=== PATIENT | male | born 1955 | race Hispanic/Latino ===

== ENCOUNTER 2017-05-23 06:17 | Inpatient (IN) | payer MEDICAID ==
[2017-05-23] MEDS ORDERED: MORPHINE IV ONE (07:12)
--- NOTE | 2017-05-23 07:16 | Emergency Department Report ---
HPI - General Chief Complaint: Urogenital-Male Time Seen by Provider: 05/23/17 06:54 - HPI HPI: 62-year-old -[place] Islander male presents with a two-week history of present worsening swelling and some mild shortness of breath. He says that the swelling is mostly in the legs, scrotum and abdomen. The scrotal swelling is associated with some testicular pain. He denies any skin color change or lesions. He denies any dysuria, penile discharge, chest pain. He has a history of diabetes, hypertension, neuropathy, congestive heart failure. He denies any tobacco, illicit drug use. He is an occasional drinker but has a history of drinking more consistently in the past. He has a primary care physician but cannot currently remember their name. He did not take anything for her symptoms prior presentation. No recent travel or sick contacts at home. ED Past Medical Hx - Past Medical History Previous Medical History?: Yes Hx Hypertension: Yes Hx Diabetes: Yes Hx COPD: No Hx HIV: No Additional medical history: Neuropathy, Hep. C, Hyperlipidemia, pulmonary edema - Surgical History Past Surgical History?: No - Social History Smoking Status: Current Every Day Smoker Substance Use Type: Alcohol - Medications Home Medications: Home Medications Medication Instructions Recorded Confirmed Last Taken Type Aspirin [Aspirin BABY CHEW TAB] 81 mg PO QDAY 01/04/17 01/04/17 01/03/17 History 81 mg AtorvaSTATin [Lipitor] 10 mg PO QHS 01/04/17 01/04/17 01/03/17 History 10 mg Citalopram [Celexa] 20 mg PO QDAY 01/04/17 01/04/17 01/02/17 History 20 mg Pregabalin [Lyrica] 75 mg PO BID 01/04/17 01/04/17 01/03/17 History 75 mg Carvedilol [Coreg] 6.25 mg PO BID #60 tablet 01/06/17 Unknown Rx Furosemide [Lasix] 20 mg PO QDAY #30 tablet 01/06/17 Unknown Rx Spironolactone [Aldactone] 12.5 mg PO QDAY #30 tablet 01/06/17 Unknown Rx hydrALAZINE [Apresoline TAB] 100 mg PO TID #90 tab 01/06/17 Unknown Rx ED Review of Systems ROS: Stated complaint: EDEMA Other details as noted in HPI Comment: All other systems reviewed and negative Constitutional: denies: chills, fever Eyes: denies: eye pain, eye discharge, vision change ENT: denies: ear pain, throat pain Respiratory: shortness of breath. denies: cough Cardiovascular: edema. denies: chest pain, palpitations Gastrointestinal: denies: abdominal pain, nausea, diarrhea Genitourinary: denies: urgency, dysuria Musculoskeletal: denies: back pain, arthralgia Skin: denies: rash, lesions Neurological: denies: headache, weakness, paresthesias Physical Exam - Physical Exam Vital Signs: Vital Signs 05/23/17 06:45 Temperature 98.7 F Pulse Rate 94 H Respiratory 17 Rate Blood Pressure 128/88 O2 Sat by Pulse 97 Oximetry Physical Exam: GENERAL: The patient is well-developed well-nourished. HENT: Normocephalic. Atraumatic. Patient has moist mucous membranes. EYES: Extraocular motions are intact. Pupils equal reactive to light bilaterally. NECK: Supple. Trachea is midline. CHEST/LUNGS: Coarse breath sounds at the chest. No tachypnea or accessory muscle use. There is no respiratory distress noted. HEART/CARDIOVASCULAR: Regular. There is no tachycardia. There is no murmur. ABDOMEN: Abdomen is soft, nontender. Patient has normal bowel sounds. SKIN: Patient has 2+ pitting edema to the bilateral lower extremities. He has nonpitting swelling to the scrotum, groin and lower abdomen. NEURO: The patient is awake, alert, and oriented. The patient is cooperative. The patient has no focal neurologic deficits. The patient has normal speech. MUSCULOSKELETAL: There is no tenderness or deformity. There is no limitation range of motion. There is no evidence of acute injury. : There is some swelling seen to the scrotum and penis. No lesions or rash seen. The area is not tender to palpation. No palpable hernias. ED Course Vital Signs 05/23/17 06:45 Temperature 98.7 F Pulse Rate 94 H Respiratory 17 Rate Blood Pressure 128/88 O2 Sat by Pulse 97 Oximetry ED Medical Decision Making - Lab Data Result diagrams: 05/23/17 08:29 05/23/17 08:29 - EKG Data -: EKG Interpreted by Ga EKG shows normal: sinus rhythm, axis (left axis deviation), intervals ( prolonged QT and QTC), QRS complexes, ST-T waves (some flattening of the T waves ) Rate: normal - EKG Data When compared to previous EKG there are: no significant change Interpretation: unchanged when compared t (01/04/17) - Radiology Data Radiology results: report reviewed, image reviewed interpreted by me: Chest x-ray shows some mild cardiomegaly. There is pulmonary vascular congestion. No obvious pneumonia. Scrotal ultrasound: 2 day history of swollen scrotum. There is a diffuse edematous thickening of the scrotal sac. There are bilateral moderate hydroceles. Both testicles have a generally normal echo pattern and size with good blood flow by color imaging. The right epididymis head contains a 7 mm cyst. The left epididymis head contains 2 smaller cysts each measuring 4 mm. On the left there is an appendix testis. The body of each epididymis is generally thickened but there is no increased blood flow demonstrated. Impressions: Nonspecific edema of the scrotal sac. Nonspecific bilateral hydroceles. Bilaterally thickened epididymis bodies with no inflammatory changes identified. Transcribed By: NITHIN Dictated By: JANINE KRAFT MD Electronically Authenticated By: JANINE KRAFT MD Signed Date/Time: 05/23/17 0865 - Medical Decision Making Patient presents with progressive two-week history of swelling to the lower extremity, groin and lower abdomen along with some mild shortness of breath. He has a history of CHF and appears to be in a CHF exacerbation with an elevated BNP. He has acute on chronic renal insufficiency. He has hyperkalemia with potassium of 5.9 and was given calcium, albuterol and Kayexalate. He was given some Lasix for diuresis. Ultrasound did not show any torsion or any significant abnormalities related to the scrotal swelling or testicular pain. The patient will be admitted to the hospital for further evaluation and treatment and has been accepted for admission by the hospitalist service. - Differential Diagnosis CHF, testicular torsion, epididymitis, venous stasis Critical Care Time: No Critical care attestation.: If time is entered above; I have spent that time in minutes in the direct care of this critically ill patient, excluding procedure time. ED Disposition Clinical Impression: Leg edema, Scrotal swelling, Hyperkalemia, Acute on chronic renal insufficiency , Elevated troponin CHF exacerbation Qualifiers: Congestive heart failure type: unspecified Qualified Code(s): I50.9 - Heart failure, unspecified Disposition: DC-09 OP ADMIT IP TO THIS HOSP Is pt being admited?: Yes Condition: Stable Referrals: PRIMARY CARE, [Primary Care Provider] - 3-5 Days Time of Disposition: 10:42
--- NOTE | 2017-05-23 07:46 | XRay Report ---
Portable chest: Chest pain. There is mild enlargement of the heart. There is mild redistribution of flow into the upper lobes. There is mild blunting of the right costophrenic angle. No infiltrates or nodules identified. These findings are significantly improved compared to the congestive failure pattern observed in December 2016. Impression: The findings are consistent with mild CHF with left pleural effusion.
[2017-05-23 08:12] LABS: Bilirubin,Urine NEG (Negative); Blood,Urine SM (Negative); Color,Urine Yellow (Yellow); Hyaline Casts,Urine 4 /LPF; Nitrite,Urine NEG (Negative)
[2017-05-23 08:14] LABS: Protein,Urine >500 mg/dL (Negative)
--- NOTE | 2017-05-23 08:35 | Ultrasound Report ---
Scrotal ultrasound: 2 day history of swollen scrotum. There is a diffuse edematous thickening of the scrotal sac. There are bilateral moderate hydroceles. Both testicles have a generally normal echo pattern and size with good blood flow by color imaging. The right epididymis head contains a 7 mm cyst. The left epididymis head contains 2 smaller cysts each measuring 4 mm. On the left there is an appendix testis. The body of each epididymis is generally thickened but there is no increased blood flow demonstrated. Impressions: Nonspecific edema of the scrotal sac. Nonspecific bilateral hydroceles. Bilaterally thickened epididymis bodies with no inflammatory changes identified.
[2017-05-23 08:44] LABS: Basophils # (Auto) 0.1 K/mm3 (0.0-0.1); Basophils % (Auto) 1.1 % (0.0-1.8); Eosinophils # (Auto) 0.4 K/mm3 (0.0-0.4); Eosinophils % (Auto) 7.7 % (0.0-4.3); Hematocrit 30.5 % (35.5-45.6); Lymphocytes # (Auto) 0.7 K/mm3 (1.2-5.4); Mean Corpuscular HGB Conc 33 % (32-34); Mean Corpuscular Hemoglobin 30 pg (28-32); Mean Corpuscular Volume 92 fl (84-94); Monocytes # (Auto) 0.8 K/mm3 (0.0-0.8); Monocytes % (Auto) 13.6 % (0.0-7.3); Platelet Count 188 K/mm3 (140-440); Red Blood Count 3.32 M/mm3 (3.65-5.03); Red Cell Distribution Width 15.8 % (13.2-15.2)
[2017-05-23 09:08] LABS: Albumin 2.5 g/dL (3.9-5); Calcium 7.5 mg/dL (8.4-10.2)
[2017-05-23] MEDS ORDERED: LASIX IV ONE (09:13)
[2017-05-23 09:21] LABS: Chol/HDL Ratio 2.61 %
[2017-05-23] MEDS ORDERED: PROVENTIL IH ONE (10:06)
[2017-05-23] MEDS ORDERED: KIONEX PO ONE (10:06)
[2017-05-23] MEDS ORDERED: CALCIUM GLUCONATE 1,000 MG in NACL 0.9% 100 ML IV ONE (10:30)
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
[2017-05-23] MEDS ORDERED: NACL 0.9% 1000 ML 1,000 ML ONE (10:43)
[2017-05-23] MEDS ORDERED: SODIUM BICARBONATE IV ONE (11:00)
[2017-05-23] MEDS ORDERED: D50W (25GM) Syringe IV ONE ×2 (11:00→18:08)
[2017-05-23] MEDS: BABY ASPIRIN PO SCH (11:01)
[2017-05-23 16:10] LABS: Calcium 7.8 mg/dL (8.4-10.2)
[2017-05-23] MEDS ORDERED: COREG ONE (16:20)
[2017-05-23] MEDS ORDERED: celeXA ONE (16:21)
[2017-05-23] MEDS ORDERED: APRESOLINE ONE (16:21)
[2017-05-23] MEDS: APRESOLINE PO SCH ×2 (16:43→22:30)
[2017-05-23] MEDS: COREG PO SCH ×2 (16:43→22:30)
[2017-05-23] MEDS: HEPARIN SUB-Q SCH ×2 (16:43→22:31)
[2017-05-23] MEDS: LYRICA PO SCH ×2 (16:43→23:13)
[2017-05-23] MEDS: celeXA PO SCH (16:44)
[2017-05-23] MEDS: LASIX IV SCH (18:19)
[2017-05-24] MEDS: LASIX IV SCH ×2 (05:49→18:39)
[2017-05-24] MEDS: HEPARIN SUB-Q SCH ×3 (05:49→22:47)
[2017-05-24 07:07] LABS: Calcium 7.6 mg/dL (8.4-10.2)
[2017-05-24] MEDS ORDERED: D50W (25GM) Syringe IV NR (09:30)
[2017-05-24] MEDS ORDERED: KIONEX PO NR ×2 (09:30→10:52)
[2017-05-24] MEDS ORDERED: SODIUM BICARBONATE IV NR (10:00)
[2017-05-24] MEDS ORDERED: CALCIUM CHLORIDE 1,000 MG in NACL 0.9% 100 ML IV ONE (10:30)
[2017-05-24] MEDS: LYRICA PO SCH ×2 (10:41→22:49)
[2017-05-24] MEDS: celeXA PO SCH (10:41)
[2017-05-24] MEDS: BABY ASPIRIN PO SCH (10:42)
[2017-05-24] MEDS: APRESOLINE PO SCH ×3 (10:42→23:18)
--- NOTE | 2017-05-24 10:47 | Consultation ---
History of Present Illness Consult date: 05/24/17 Consult reason: congestive heart failure History of present illness: 62 year old -[place] male presenting with shortness of breath and dyspnea on exertion scrotal leg and abdominal swelling. Past History Past Medical History: CAD, hypertension, hyperlipidemia, renal failure Social history: smoking, alcohol abuse Medications and Allergies Allergies Allergy/AdvReac Type Severity Reaction Status Date / Time No Known Allergies Allergy Unverified 01/04/17 08:05 Home Medications Medication Instructions Recorded Confirmed Last Taken Type Pregabalin [Lyrica] 75 mg PO BID 01/04/17 05/23/17 01/03/17 History 75 mg Carvedilol [Coreg] 6.25 mg PO BID #60 tablet 01/06/17 05/23/17 Unknown Rx Furosemide [Lasix] 20 mg PO QDAY #30 tablet 01/06/17 05/23/17 Unknown Rx Spironolactone [Aldactone] 12.5 mg PO QDAY #30 tablet 01/06/17 05/23/17 Unknown Rx hydrALAZINE [Apresoline TAB] 100 mg PO TID #90 tab 01/06/17 05/23/17 Unknown Rx Bumetanide [Bumetanide 2 mg tab] 2 mg PO BID 05/23/17 05/23/17 Unknown History Isosorbide Dinitrate [Isordil 20 mg PO TID 05/23/17 05/23/17 Unknown History Titradose] Metolazone [Zaroxolyn] 2.5 mg PO 2XW 05/23/17 05/23/17 Unknown History Active Meds: Active Medications Aspirin (Baby Aspirin) 81 mg PO QDAY [facility] Last Admin: 05/24/17 10:42 Dose: 81 mg Atorvastatin Calcium (Lipitor) 10 mg PO QHS [facility] Last Admin: 05/23/17 23:13 Dose: 10 mg Carvedilol (Coreg) 6.25 mg PO BID [facility] Last Admin: 05/23/17 22:30 Dose: 6.25 mg Citalopram Hydrobromide (Celexa) 20 mg PO QDAY [facility] Last Admin: 05/24/17 10:41 Dose: 20 mg Furosemide (Lasix) 40 mg IV 0600,1800 [facility] Last Admin: 05/24/17 05:49 Dose: 40 mg Heparin Sodium (Porcine) (Heparin) 5,000 unit SUB-Q Q8HR [facility] Last Admin: 05/24/17 05:49 Dose: 5,000 unit Hydralazine HCl (Apresoline) 100 mg PO TID [facility] Last Admin: 05/24/17 10:42 Dose: 100 mg Insulin Human Regular (Novolin R) 0 units SUB-Q ACHS [facility] PRN Reason: Protocol Last Admin: 05/23/17 22:24 Dose: Not Given Pregabalin (Lyrica) 75 mg PO BID [facility] Last Admin: 05/24/17 10:41 Dose: 75 mg Review of Systems Constitutional: weight gain, fatigue, weakness Cardiovascular: orthopnea, palpitations, edema, dyspnea on exertion Respiratory: shortness of breath, dyspnea on exertion, no cough, no cough with sputum, no congestion Genitourinary Male: no dysuria, no hematuria, no flank pain, no urinary frequency, no urinary hesitancy Musculoskeletal: no neck stiffness, no neck pain Integumentary: no deferred, no rash, no pruritis, no redness Neurological: no head injury, no transient paralysis, no weakness, no parathesias, no numbness Endocrine: no cold intolerance, no heat intolerance, no polyphagia, no polydipsia, no polyuria Hematologic/Lymphatic: no easy bruising, no easy bleeding Allergic/Immunologic: no urticaria, no allergic rhinitis Physical Examination Vital Signs Temp Pulse Resp BP Pulse Ox 98.7 F 94 H 17 128/88 97 05/23/17 06:45 05/23/17 06:45 05/23/17 06:45 05/23/17 06:45 05/23/17 06:45 General appearance: no acute distress HEENT: Positive: PERRL, Normocephaly, Mucus Membranes Moist Neck: Positive: neck supple, trachea midline Cardiac: Positive: S1/S2, S3, PMI, Dilated, Laterally Displaced Lungs: Positive: Normal Exam Neuro: Positive: Grossly Intact, No Lateralizing Findings Abdomen: Positive: Unremarkable, Soft, Active Bowel Sounds Male genitourinary: Positive: scrotal edema Skin: Positive: Clear Extremities: Present: +2 Edema, Other (mild anasarca) Results 05/23/17 08:29 05/24/17 06:00 Comprehensive Metabolic Panel 05/23/17 05/24/17 Range/Units 15:43 06:00 Sodium 140 141 (137-145) mmol/L Potassium 5.2 H 6.0 H (3.6-5.0) mmol/L Chloride 110.3 H 109.5 H (98-107) mmol/L Carbon Dioxide 20 L 21 L (22-30) mmol/L BUN 35 H 37 H (9-20) mg/dL Creatinine 2.1 H 2.2 H (0.8-1.5) mg/dL Glucose 50 L 222 H (75-100) mg/dL Calcium 7.8 L 7.6 L (8.4-10.2) mg/dL EKG interpretations - Telemetry EKG Rhythm: Sinus Rhythm Assessment and Plan 1. Acute systolic heart failure probably precipitated by fluid overload 2. Chronic kidney disease stage III 3. Type 2 diabetes mellitus 4. Chronic hepatitis C 5. Essential hypertension 6. Hyperkalemia. Plan. Fluid management and correcting hyperkalemia as per the money counter. Check Echo
--- NOTE | 2017-05-24 11:58 | Consultation ---
History of Present Illness - Reason for Consult Consult date: 05/24/17 acute renal failure, chronic renal failure, hyperkalemia Requesting physician: ESPINOZA CHEATHAM - History of Present Illness 62-year-old -[place] male presents with a two-week history of present worsening swelling and some mild shortness of breath. He says that the swelling is mostly in the legs, scrotum and abdomen. The scrotal swelling is associated with some testicular pain. He denies any skin color change or lesions. He denies any dysuria, penile discharge, chest pain. He has a history of diabetes, hypertension, neuropathy, congestive heart failure. He denies any tobacco, illicit drug use. He is an occasional drinker but has a history of drinking more consistently in the past. He has a primary care physician but cannot currently remember their name. He did not take anything for her symptoms prior presentation. No recent travel or sick contacts at home. - Past Medical History Previous Medical History?: Yes Hx Hypertension: Yes Hx Diabetes: Yes Hx COPD: No Hx HIV: No Additional medical history: Neuropathy, Hep. C, Hyperlipidemia, pulmonary edema - Surgical History Past Surgical History?: No - Social History Smoking Status: Current Every Day Smoker Substance Use Type: Alcohol ROS: Stated complaint: EDEMA Other details as noted in HPI Comment: All other systems reviewed and negative Constitutional: denies: chills, fever Eyes: denies: eye pain, eye discharge, vision change ENT: denies: ear pain, throat pain Respiratory: shortness of breath. denies: cough Cardiovascular: edema. denies: chest pain, palpitations Gastrointestinal: denies: abdominal pain, nausea, diarrhea Genitourinary: denies: urgency, dysuria Musculoskeletal: denies: back pain, arthralgia Skin: denies: rash, lesions Neurological: denies: headache, weakness, paresthesias Past History Past Medical History: CAD, hypertension, hyperlipidemia, renal failure Social history: smoking, alcohol abuse Medications and Allergies Allergies Allergy/AdvReac Type Severity Reaction Status Date / Time No Known Allergies Allergy Unverified 01/04/17 08:05 Home Medications Medication Instructions Recorded Confirmed Last Taken Type Pregabalin [Lyrica] 75 mg PO BID 01/04/17 05/23/17 01/03/17 History 75 mg Carvedilol [Coreg] 6.25 mg PO BID #60 tablet 01/06/17 05/23/17 Unknown Rx Furosemide [Lasix] 20 mg PO QDAY #30 tablet 01/06/17 05/23/17 Unknown Rx Spironolactone [Aldactone] 12.5 mg PO QDAY #30 tablet 01/06/17 05/23/17 Unknown Rx hydrALAZINE [Apresoline TAB] 100 mg PO TID #90 tab 01/06/17 05/23/17 Unknown Rx Bumetanide [Bumetanide 2 mg tab] 2 mg PO BID 05/23/17 05/23/17 Unknown History Isosorbide Dinitrate [Isordil 20 mg PO TID 05/23/17 05/23/17 Unknown History Titradose] Metolazone [Zaroxolyn] 2.5 mg PO 2XW 05/23/17 05/23/17 Unknown History Active Meds: Active Medications Aspirin (Baby Aspirin) 81 mg PO QDAY [facility] Last Admin: 05/24/17 10:42 Dose: 81 mg Atorvastatin Calcium (Lipitor) 10 mg PO QHS [facility] Last Admin: 05/23/17 23:13 Dose: 10 mg Carvedilol (Coreg) 6.25 mg PO BID [facility] Last Admin: 05/23/17 22:30 Dose: 6.25 mg Citalopram Hydrobromide (Celexa) 20 mg PO QDAY [facility] Last Admin: 05/24/17 10:41 Dose: 20 mg Furosemide (Lasix) 40 mg IV 0600,1800 [facility] Last Admin: 05/24/17 05:49 Dose: 40 mg Heparin Sodium (Porcine) (Heparin) 5,000 unit SUB-Q Q8HR [facility] Last Admin: 05/24/17 05:49 Dose: 5,000 unit Hydralazine HCl (Apresoline) 100 mg PO TID [facility] Last Admin: 05/24/17 10:42 Dose: 100 mg Insulin Human Regular (Novolin R) 0 units SUB-Q ACHS [facility] PRN Reason: Protocol Last Admin: 05/24/17 10:45 Dose: 3 units Pregabalin (Lyrica) 75 mg PO BID [facility] Last Admin: 05/24/17 10:41 Dose: 75 mg Exam - Vital Signs Vital signs: Vital Signs Temp Pulse Resp BP Pulse Ox 98.7 F 94 H 17 128/88 97 05/23/17 06:45 05/23/17 06:45 05/23/17 06:45 05/23/17 06:45 05/23/17 06:45 - Physical Exam Narrative exam: Physical Exam: GENERAL: The patient is well-developed well-nourished. HENT: Normocephalic. Atraumatic. Patient has moist mucous membranes. EYES: Extraocular motions are intact. Pupils equal reactive to light bilaterally. NECK: Supple. Trachea is midline. CHEST/LUNGS: Coarse breath sounds at the chest. No tachypnea or accessory muscle use. There is no respiratory distress noted. HEART/CARDIOVASCULAR: Regular. There is no tachycardia. There is no murmur. ABDOMEN: Abdomen is soft, nontender. Patient has normal bowel sounds. SKIN: Patient has 2+ pitting edema to the bilateral lower extremities. He has nonpitting swelling to the scrotum, groin and lower abdomen. NEURO: The patient is awake, alert, and oriented. The patient is cooperative. The patient has no focal neurologic deficits. The patient has normal speech. MUSCULOSKELETAL: There is no tenderness or deformity. There is no limitation range of motion. There is no evidence of acute injury. : There is some swelling seen to the scrotum and penis. No lesions or rash seen. The area is not tender to palpation. No palpable hernias Results - Lab Results 05/23/17 08:29 05/24/17 06:00 Most recent lab results Calcium 7.6 mg/dL (8.4-10.2) L 05/24/17 06:00 Assessment and Plan Impression: * DEBO on ckd 3--cr 1.6 12/29 * hyperkalemia * Anasarca * HTN * Cardiomyopathty * DM type 2 * Chronic hep C Plan: * renal/low k diet * kayexalate prn for hyperkalemia * area counselor on dietary intake * aggressive diuresis * daily lytes * hypoalbumemia noted--?nephrotic syndrome * follow up prot/cr ratio * ua and vasculitis workup * fluid restriction
[2017-05-24] MEDS ORDERED: SODIUM BICARBONATE IV ONE (13:00)
[2017-05-24 16:01] LABS: Calcium 8.1 mg/dL (8.4-10.2)
--- NOTE | 2017-05-24 17:17 | Progress Note ---
Assessment and Plan /Hyperkalemia, with Potassium increased to 6.0. - s/p kayexalate 30mh orally with calcium gluconate in the ER, was also given insulin with D50, sodium bicarbonate - but level still high. reordered kayexalate, calcium gluconate, insulin with D50, sodium bicarbonate today - monitor BMP, nephrology consulted - change to renal diet /Acute congestive heart failure, with grade 2 DD. - 2d echo showed EF 45-50% and grade 2 DD, his symptom might be also precipitated from volume overload and declining renaL FUNCTION - CXR showed mild CHF and left pleural effusion - monitor to telemetry bed - ordered serial CE and EKG - will cont on Aspirin, statin, and Lasix IV - consulted cardiology - daily weights, monitor in's and O's - increase lasix dose to 60 mg BID /Chronic kidney disease stage III. - cont to Monitor renal function, Avoid nephrotoxins. - consulted nephrology /Hypertensive urgency. - Given hydralazine iv. started on oral Coreg, hydralazine and lasix /Diabetes mellitus type 2. - We cont on SSI /Hyperlipidemia. - On statin. /Hepatitis C - Monitor liver function /Polysubstance abuse with Marijuana, Cocaine - Counseled for cessation /Neuropathy. - Continue Lyrica from home. /Scrotal swelling - testicular US showed nonspecific swelling of the scrotum - cont lasix for now, monitor clinically DVT prophylaxis with Heparin subcut. Full code status Brief History: 62-year-old -[place]og[place] male with h/o CKD, DM, CHF presents with a two-week history of present worsening swelling of the legs, scrotum and abdomen and some mild shortness of breath. Subjective Date of service: 05/24/17 Interval history: Pt seen and examined continue to c/o scrotal swelling and pain also worried about b/l LE swelling Chemistry shows K level 6.0 today Objective - Exam Narrative Exam: GENERAL: well-developed and well-nourished AAM lying on bed appeared to be in no discomfort. HEENT: Normocephalic. Atraumatic. No conjunctival congestion or icterus. Patient has moist mucous membranes. NECK: Supple. Trachea midline. CHEST/LUNGS: Clear to auscultated bilaterally, breathing nonlabored. No wheezes crackles or rhonchi. HEART/CARDIOVASCULAR: Regular in rate and rhythm. S1 and S2 positive. ABDOMEN: Abdomen is soft, nontender. Patient has normal bowel sounds. genitourinary: scrotal and penile swelling, no skin color change SKIN: There is no rash. Warm and dry. NEURO: No focal motor deficit. Follows command. MUSCULOSKELETAL: No joint effusion or tenderness. EXTRIMITY: + pedal edema, no cyanosis or clubbing. PSYCH: Cooperative. - Constitutional Vitals: Vital Signs - 12hr 05/24/17 05/24/17 05/24/17 05:49 08:27 08:28 Temperature 97.4 F L 98.7 F Pulse Rate 80 74 73 Respiratory 20 18 Rate Blood Pressure 128/79 120/73 O2 Sat by Pulse 94 96 96 Oximetry 05/24/17 10:00 Temperature Pulse Rate Respiratory 20 Rate Blood Pressure O2 Sat by Pulse 95 Oximetry - Labs CBC & Chem 7: 05/26/17 05:31 05/26/17 05:31 Labs: Abnormal lab results 05/23/17 05/23/17 05/24/17 Range/Units 18:09 22:27 06:00 Potassium 6.0 H (3.6-5.0) mmol/L Chloride 109.5 H (98-107) mmol/L Carbon Dioxide 21 L (22-30) mmol/L BUN 37 H (9-20) mg/dL Creatinine 2.2 H (0.8-1.5) mg/dL Glucose 222 H (75-100) mg/dL POC Glucose 53 L 123 H (70-105) Calcium 7.6 L (8.4-10.2) mg/dL Hepatitis C Antibody (NonReactive) 05/24/17 05/24/17 05/24/17 Range/Units 08:36 11:58 13:16 Potassium (3.6-5.0) mmol/L Chloride (98-107) mmol/L Carbon Dioxide (22-30) mmol/L BUN (9-20) mg/dL Creatinine (0.8-1.5) mg/dL Glucose (75-100) mg/dL POC Glucose 230 H 227 H (70-105) Calcium (8.4-10.2) mg/dL Hepatitis C Antibody Reactive A (NonReactive) 05/24/17 Range/Units 15:33 Potassium 5.9 H (3.6-5.0) mmol/L Chloride 109.2 H (98-107) mmol/L Carbon Dioxide 21 L (22-30) mmol/L BUN 38 H (9-20) mg/dL Creatinine 2.3 H (0.8-1.5) mg/dL Glucose (75-100) mg/dL POC Glucose (70-105) Calcium 8.1 L (8.4-10.2) mg/dL Hepatitis C Antibody (NonReactive)
[2017-05-24] MEDS: COREG PO SCH (22:48)
[2017-05-24] MEDS: ALBURX 25% (ALBUMIN) IV SCH (23:18)
[2017-05-25] MEDS ORDERED: KIONEX PO PRN
[2017-05-25] MEDS: LASIX IV SCH ×2 (06:18→18:14)
[2017-05-25] MEDS: HEPARIN SUB-Q SCH ×3 (06:18→22:10)
[2017-05-25 07:14] LABS: Calcium 7.4 mg/dL (8.4-10.2)
[2017-05-25 08:01] LABS: Bacteria,Urine 1+ /HPF (Negative); Bilirubin,Urine NEG (Negative); Blood,Urine NEG (Negative); Color,Urine Yellow (Yellow); Nitrite,Urine NEG (Negative); Urobilinogen,Urine < 2.0 mg/dL (<2.0)
[2017-05-25 08:06] LABS: Creatinine,Urine 66.7 mg/dL (0.1-20.0); Protein/Creatinine Ratio,Urine 0.78
[2017-05-25] MEDS: LYRICA PO SCH ×2 (09:44→22:10)
[2017-05-25] MEDS: celeXA PO SCH (09:44)
[2017-05-25] MEDS: BABY ASPIRIN PO SCH (09:44)
[2017-05-25] MEDS: APRESOLINE PO SCH ×3 (09:44→23:51)
[2017-05-25] MEDS: COREG PO SCH ×2 (09:45→22:11)
--- NOTE | 2017-05-25 10:22 | Progress Note ---
Assessment and Plan 1. Acute systolic heart failure probably precipitated by fluid overload 2. Chronic kidney disease stage III 3. Type 2 diabetes mellitus 4. Chronic hepatitis C 5. Essential hypertension 6. Hyperkalemia. Plan. Fluid management as per [employer]. Check echocardiogram Subjective Date of service: 05/25/17 Interval history: Pateint denies any cardiac symptoms. Still very concerned about his edema Objective Vital Signs Temp Pulse Resp BP Pulse Ox 05/25/17 09:45 80 152/83 05/25/17 08:46 98.3 F 80 20 152/83 95 05/25/17 06:21 98.3 F 81 20 139/73 94 05/25/17 01:11 98.2 F 81 20 113/65 96 05/24/17 22:48 88 120/64 05/24/17 20:26 98.3 F 88 20 119/64 97 05/24/17 17:19 86 97 05/24/17 11:57 80 118/72 94 - Physical Examination General: Appears Well, No Apparent Distress, Other (generalized anasarca) HEENT: Positive: PERRL, Normocephaly, Mucus Membranes Moist Neck: Positive: neck supple, trachea midline Cardiac: Positive: Regular Rate, S1/S2, S3, PMI, Laterally Displaced Lungs: Positive: clear to auscultation, No Wheeze, Rales, Rhonchi Neuro: Positive: Grossly Intact, No Lateralizing Findings Abdomen: Positive: Unremarkable, Soft, Active Bowel Sounds Skin: Positive: Clear Extremities: Present: +2 Edema, Other (generalized anasarca. scrotal edema) - Labs and Meds Comprehensive Metabolic Panel 05/24/17 05/24/17 05/25/17 Range/Units 15:33 17:42 05:31 Sodium 140 141 (137-145) mmol/L Potassium 5.9 H 5.9 H 5.1 H (3.6-5.0) mmol/L Chloride 109.2 H 109.9 H (98-107) mmol/L Carbon Dioxide 21 L 20 L (22-30) mmol/L BUN 38 H 40 H (9-20) mg/dL Creatinine 2.3 H 2.5 H (0.8-1.5) mg/dL Glucose 89 162 H (75-100) mg/dL Calcium 8.1 L 7.4 L (8.4-10.2) mg/dL - EKG Sinus rhythms and dysrhythmias: sinus rhythm
[2017-05-25 11:05] LABS: Calcium 7.7 mg/dL (8.4-10.2)
--- NOTE | 2017-05-25 12:23 | Progress Note ---
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 HENT: Normocephalic. Atraumatic. Patient has moist mucous membranes. EYES: Extraocular motions are intact. Pupils equal reactive to light bilaterally. NECK: Supple. Trachea is midline. CHEST/LUNGS: Coarse breath sounds at the chest. No tachypnea or accessory muscle use. There is no respiratory distress noted. HEART/CARDIOVASCULAR: Regular. There is no tachycardia. There is no murmur. ABDOMEN: Abdomen is soft, nontender. Patient has normal bowel sounds. SKIN: Patient has 2+ pitting edema to the bilateral lower extremities. He has nonpitting swelling to the scrotum, groin and lower abdomen. NEURO: The patient is awake, alert, and oriented. The patient is cooperative. The patient has no focal neurologic deficits. The patient has normal speech. MUSCULOSKELETAL: There is no tenderness or deformity. There is no limitation range of motion. There is no evidence of acute injury. : There is some swelling seen to the scrotum and penis. No lesions or rash seen. The area is not tender to palpation. No palpable hernias - Vital Signs Vital signs: Vital Signs - 12hr 05/25/17 05/25/17 05/25/17 01:11 06:21 08:46 Temperature 98.2 F 98.3 F 98.3 F Pulse Rate 81 81 80 Pulse Rate [ Apical] Respiratory 20 20 20 Rate Blood Pressure 113/65 139/73 152/83 O2 Sat by Pulse 96 94 95 Oximetry 05/25/17 05/25/17 09:45 10:00 Temperature Pulse Rate 80 Pulse Rate [ 80 Apical] Respiratory 17 Rate Blood Pressure 152/83 O2 Sat by Pulse 96 Oximetry - Lab 05/23/17 08:29 05/25/17 10:10 Most recent lab results Calcium 7.7 mg/dL (8.4-10.2) L 05/25/17 10:10 Urine Creatinine 66.7 mg/dL (0.1-20.0) H 05/25/17 Unknown Urine Total Protein 52 mg/dL (5-11.8) H 05/25/17 Unknown
[2017-05-25] MEDS: PERCOCET 5/325 PO PRN (12:40)
[2017-05-25] MEDS: ALBURX 25% (ALBUMIN) IV SCH (14:03)
[2017-05-25] MEDS: SODIUM BICARBONATE PO SCH ×2 (14:04→22:10)
--- NOTE | 2017-05-25 15:38 | Progress Note ---
Assessment and Plan /Hyperkalemia, with Potassium increased to 6.0. - K level 5.4 today - s/p kayexalate 30mh orally with calcium gluconate in the ER, was also given insulin with D50, sodium bicarbonate - but level was still high. reordered kayexalate, calcium gluconate, insulin with D50, sodium bicarbonate yesterday - will cont kayexalate and started on oral sodium bicarbonate - monitor BMP, nephrology consulted - cnt on renal diet /Acute congestive heart failure, with grade 2 DD. - 2d echo showed EF 45-50% and grade 2 DD, his symptom might be also precipitated from volume overload and declining renaL FUNCTION - CXR showed mild CHF and left pleural effusion - monitor to telemetry bed - ordered serial CE and EKG - will cont on Aspirin, statin, and Lasix IV - consulted cardiology - daily weights, monitor in's and O's - increased lasix dose to 60 mg BID /Chronic kidney disease stage III. - cont to Monitor renal function, Avoid nephrotoxins. - consulted nephrology /Hypertensive urgency. - Given hydralazine iv. started on oral Coreg, hydralazine and lasix /Diabetes mellitus type 2. - We cont on SSI /Hyperlipidemia. - On statin. /Hepatitis C - Monitor liver function /Polysubstance abuse with Marijuana, Cocaine - Counseled for cessation /Neuropathy. - Continue Lyrica from home. /Scrotal swelling - testicular US showed nonspecific swelling of the scrotum - cont lasix for now, monitor clinically DVT prophylaxis with Heparin subcut. Full code status Brief History: 62-year-old -[place]ish male with h/o CKD, DM, CHF presents with a two-week history of present worsening swelling of the legs, scrotum and abdomen and some mild shortness of breath. Subjective Date of service: 05/25/17 Principal diagnosis: hyperkalemia, ckd 3 Interval history: Pt seen and examined continue to c/o scrotal swelling and pain also worried about b/l LE swelling Chemistry shows K level 5.4 today had multiple BM this am Objective - Exam Narrative Exam: GENERAL: well-developed and well-nourished AAM lying on bed appeared to be in no discomfort. HEENT: Normocephalic. Atraumatic. No conjunctival congestion or icterus. Patient has moist mucous membranes. NECK: Supple. Trachea midline. CHEST/LUNGS: Clear to auscultated bilaterally, breathing nonlabored. No wheezes crackles or rhonchi. HEART/CARDIOVASCULAR: Regular in rate and rhythm. S1 and S2 positive. ABDOMEN: Abdomen is soft, nontender. Patient has normal bowel sounds. genitourinary: scrotal and penile swelling, no skin color change SKIN: There is no rash. Warm and dry. NEURO: No focal motor deficit. Follows command. MUSCULOSKELETAL: No joint effusion or tenderness. EXTRIMITY: + pedal edema, no cyanosis or clubbing. PSYCH: Cooperative. - Constitutional Vitals: Vital Signs - 12hr 05/25/17 05/25/17 05/25/17 06:21 08:46 09:45 Temperature 98.3 F 98.3 F Pulse Rate 81 80 80 Pulse Rate [ Apical] Respiratory 20 20 Rate Blood Pressure 139/73 152/83 152/83 Blood Pressure [Left] O2 Sat by Pulse 94 95 Oximetry 05/25/17 05/25/17 05/25/17 10:00 12:00 12:40 Temperature 97.4 F L Pulse Rate 75 Pulse Rate [ 80 Apical] Respiratory 17 20 19 Rate Blood Pressure Blood Pressure 125/69 [Left] O2 Sat by Pulse 96 95 Oximetry 05/25/17 14:24 Temperature Pulse Rate 80 Pulse Rate [ Apical] Respiratory Rate Blood Pressure Blood Pressure [Left] O2 Sat by Pulse Oximetry - Labs CBC & Chem 7: 05/26/17 05:31 05/26/17 05:31 Labs: Abnormal lab results 05/24/17 05/24/17 05/24/17 Range/Units 15:33 17:28 17:42 Potassium 5.9 H 5.9 H (3.6-5.0) mmol/L Chloride 109.2 H (98-107) mmol/L Carbon Dioxide 21 L (22-30) mmol/L BUN 38 H (9-20) mg/dL Creatinine 2.3 H (0.8-1.5) mg/dL Glucose (75-100) mg/dL POC Glucose 113 H (70-105) Calcium 8.1 L (8.4-10.2) mg/dL Urine Creatinine (0.1-20.0) mg/dL Urine Total Protein (5-11.8) mg/dL 05/24/17 05/25/1705/25/18 Range/Units 22:20 05:31 08:53 Potassium 5.1 H (3.6-5.0) mmol/L Chloride 109.9 H (98-107) mmol/L Carbon Dioxide 20 L (22-30) mmol/L BUN 40 H (9-20) mg/dL Creatinine 2.5 H (0.8-1.5) mg/dL Glucose 162 H (75-100) mg/dL POC Glucose 243 H 169 H (70-105) Calcium 7.4 L (8.4-10.2) mg/dL Urine Creatinine (0.1-20.0) mg/dL Urine Total Protein (5-11.8) mg/dL 05/25/17 05/25/17 05/25/17 Range/Units 10:10 12:12 Unknown Potassium 5.4 H (3.6-5.0) mmol/L Chloride 108.4 H (98-107) mmol/L Carbon Dioxide 20 L (22-30) mmol/L BUN 42 H (9-20) mg/dL Creatinine 2.4 H (0.8-1.5) mg/dL Glucose 208 H (75-100) mg/dL POC Glucose 185 H (70-105) Calcium 7.7 L (8.4-10.2) mg/dL Urine Creatinine 66.7 H (0.1-20.0) mg/dL Urine Total Protein 52 H (5-11.8) mg/dL
[2017-05-26] MEDS: ALBURX 25% (ALBUMIN) IV SCH ×2 (01:51→13:51)
[2017-05-26] MEDS: LASIX IV SCH ×2 (02:41→14:39)
[2017-05-26 06:08] LABS: Basophils # (Auto) 0.1 K/mm3 (0.0-0.1); Basophils % (Auto) 1.4 % (0.0-1.8); Eosinophils # (Auto) 0.4 K/mm3 (0.0-0.4); Eosinophils % (Auto) 9.5 % (0.0-4.3); Hematocrit 29.9 % (35.5-45.6); Lymphocytes # (Auto) 0.7 K/mm3 (1.2-5.4); Lymphocytes % (Auto) 18.9 % (13.4-35.0); Mean Corpuscular HGB Conc 33 % (32-34); Mean Corpuscular Hemoglobin 30 pg (28-32); Mean Corpuscular Volume 90 fl (84-94); Monocytes # (Auto) 0.6 K/mm3 (0.0-0.8); Monocytes % (Auto) 15.1 % (0.0-7.3); Platelet Count 202 K/mm3 (140-440); Red Blood Count 3.33 M/mm3 (3.65-5.03); Red Cell Distribution Width 15.3 % (13.2-15.2)
[2017-05-26 06:25] LABS: Calcium 7.7 mg/dL (8.4-10.2)
[2017-05-26] MEDS: HEPARIN SUB-Q SCH ×3 (06:27→23:09)
--- NOTE | 2017-05-26 09:22 | Progress Note ---
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 HENT: Normocephalic. Atraumatic. Patient has moist mucous membranes. EYES: Extraocular motions are intact. Pupils equal reactive to light bilaterally. NECK: Supple. Trachea is midline. CHEST/LUNGS: Coarse breath sounds at the chest. No tachypnea or accessory muscle use. There is no respiratory distress noted. HEART/CARDIOVASCULAR: Regular. There is no tachycardia. There is no murmur. ABDOMEN: Abdomen is soft, nontender. Patient has normal bowel sounds. SKIN: Patient has 2+ pitting edema to the bilateral lower extremities. He has nonpitting swelling to the scrotum, groin and lower abdomen. NEURO: The patient is awake, alert, and oriented. The patient is cooperative. The patient has no focal neurologic deficits. The patient has normal speech. MUSCULOSKELETAL: There is no tenderness or deformity. There is no limitation range of motion. There is no evidence of acute injury. : There is some swelling seen to the scrotum and penis. No lesions or rash seen. The area is not tender to palpation. No palpable hernias - Vital Signs Vital signs: Vital Signs - 12hr 05/25/17 05/26/17 05/26/17 22:11 01:39 05:43 Temperature 98.7 F Pulse Rate 88 77 82 Respiratory 20 22 Rate Blood Pressure 137/83 118/61 151/92 O2 Sat by Pulse 98 96 Oximetry 05/26/17 08:05 Temperature 98.3 F Pulse Rate 81 Respiratory 20 Rate Blood Pressure 153/80 O2 Sat by Pulse 96 Oximetry - Lab 05/26/17 05:31 05/26/17 05:31 Most recent lab results Calcium 7.7 mg/dL (8.4-10.2) L 05/26/17 05:31 Urine Creatinine 66.7 mg/dL (0.1-20.0) H 05/25/17 Unknown Urine Total Protein 52 mg/dL (5-11.8) H 05/25/17 Unknown
[2017-05-26] MEDS: BABY ASPIRIN PO SCH (09:34)
[2017-05-26] MEDS: celeXA PO SCH (09:34)
[2017-05-26] MEDS: SODIUM BICARBONATE PO SCH ×2 (09:34→23:12)
[2017-05-26] MEDS: LYRICA PO SCH ×2 (09:34→23:11)
[2017-05-26] MEDS: COREG PO SCH ×2 (09:35→23:12)
[2017-05-26] MEDS: APRESOLINE PO SCH ×3 (09:35→20:20)
--- NOTE | 2017-05-26 10:39 | Progress Note ---
Assessment and Plan /Hyperkalemia, with Potassium increased to 6.0. - K level 5.0 today - s/p multiple round of kayexalate with calcium gluconate, insulin with D50, sodium bicarbonate to control K - started on oral sodium bicarbonate - monitor BMP, nephrology consulted - cont on renal diet /Cory on Chronic kidney disease stage III. - cont to Monitor renal function, Avoid nephrotoxins. - consulted nephrology, volume status not improving with diuresis - plan to start HD short term to control volume status and electrolytes /Acute systolic and diastolic heart failure - 2d echo showed EF 45-50% and grade 2 DD, his symptom might be also precipitated from volume overload and declining renaL FUNCTION - CXR showed mild CHF and left pleural effusion - monitor to telemetry bed - will cont on Aspirin, statin, and Lasix IV 80 mg BID - consulted cardiology - daily weights, monitor in's and O's /Hypertensive urgency. - Given hydralazine iv. started on oral Coreg, hydralazine and lasix /Diabetes mellitus type 2. - We cont on SSI /Hyperlipidemia. - On statin. /Hepatitis C - Monitor liver function /Polysubstance abuse with Marijuana, Cocaine - Counseled for cessation /Neuropathy. - Continue Lyrica from home. /Scrotal swelling - testicular US showed nonspecific swelling of the scrotum - cont lasix for now, monitor clinically DVT prophylaxis with Heparin subcut. Full code status Brief History: 62-year-old -[place] male with h/o CKD, DM, CHF presents with a two-week history of present worsening swelling of the legs, scrotum and abdomen and some mild shortness of breath. Subjective Date of service: 05/26/17 Principal diagnosis: hyperkalemia, ckd 3 Interval history: Pt seen and examined continue to c/o scrotal swelling and pain also worried about b/l LE swelling swelling not going down, Not enough urine output with diuresis Objective - Exam Narrative Exam: GENERAL: well-developed and well-nourished AAM lying on bed appeared to be in no discomfort. HEENT: Normocephalic. Atraumatic. No conjunctival congestion or icterus. Patient has moist mucous membranes. NECK: Supple. Trachea midline. CHEST/LUNGS: Clear to auscultated bilaterally, breathing nonlabored. No wheezes crackles or rhonchi. HEART/CARDIOVASCULAR: Regular in rate and rhythm. S1 and S2 positive. ABDOMEN: Abdomen is soft, nontender. Patient has normal bowel sounds. genitourinary: scrotal and penile swelling, no skin color change SKIN: There is no rash. Warm and dry. NEURO: No focal motor deficit. Follows command. MUSCULOSKELETAL: No joint effusion or tenderness. EXTRIMITY: + pedal edema, no cyanosis or clubbing. PSYCH: Cooperative. - Constitutional Vitals: Vital Signs - 12hr 05/26/17 05/26/17 05/26/17 01:39 05:43 08:05 Temperature 98.7 F 98.3 F Pulse Rate 77 82 81 Respiratory 20 22 20 Rate Blood Pressure 118/61 151/92 153/80 O2 Sat by Pulse 98 96 96 Oximetry 05/26/17 09:35 Temperature Pulse Rate 80 Respiratory Rate Blood Pressure 153/80 O2 Sat by Pulse Oximetry - Labs CBC & Chem 7: 05/26/17 05:31 05/26/17 05:31 Labs: Abnormal lab results 05/25/17 05/25/17 05/25/17 Range/Units 10:10 12:12 22:09 WBC (4.5-11.0) K/mm3 RBC (3.65-5.03) M/mm3 Hgb (11.8-15.2) gm/dl Hct (35.5-45.6) % RDW (13.2-15.2) % [place] % (Auto) (0.0-7.3) % Eos % (Auto) (0.0-4.3) % Lymph # (1.2-5.4) K/mm3 Potassium 5.4 H (3.6-5.0) mmol/L Chloride 108.4 H (98-107) mmol/L Carbon Dioxide 20 L (22-30) mmol/L BUN 42 H (9-20) mg/dL Creatinine 2.4 H (0.8-1.5) mg/dL Glucose 208 H (75-100) mg/dL POC Glucose 185 H 159 H (70-105) Calcium 7.7 L (8.4-10.2) mg/dL 05/26/17 05/26/17 Range/Units 05:31 05:31 WBC 3.9 L (4.5-11.0) K/mm3 RBC 3.33 L (3.65-5.03) M/mm3 Hgb 10.0 L (11.8-15.2) gm/dl Hct 29.9 L (35.5-45.6) % RDW 15.3 H (13.2-15.2) % [place] % (Auto) 15.1 H (0.0-7.3) % Eos % (Auto) 9.5 H (0.0-4.3) % Lymph # 0.7 L (1.2-5.4) K/mm3 Potassium (3.6-5.0) mmol/L Chloride 108.0 H (98-107) mmol/L Carbon Dioxide 21 L (22-30) mmol/L BUN 44 H (9-20) mg/dL Creatinine 2.5 H (0.8-1.5) mg/dL Glucose 150 H (75-100) mg/dL POC Glucose (70-105) Calcium 7.7 L (8.4-10.2) mg/dL
--- NOTE | 2017-05-26 10:51 | Progress Note ---
Assessment and Plan Acute heart failure with a preserved ejection fraction secondary to noncompliance with medications EF 45-50% on echo this admission no ischemia on MPI 12/2016 Acute on choric Renal failure Hypertension Insulin-dependent diabetes mellitus Subjective Date of service: 05/26/17 Principal diagnosis: hyperkalemia, ckd 3 Interval history: Patient has no complaints. Objective Vital Signs Temp Pulse Resp BP BP Pulse Ox 05/26/17 09:35 80 153/80 05/26/17 08:05 98.3 F 81 20 153/80 96 05/26/17 05:43 82 22 151/92 96 05/26/17 01:39 98.7 F 77 20 118/61 98 05/25/17 22:11 88 137/83 05/25/17 20:52 98.5 F 83 18 137/77 95 05/25/17 16:09 98.6 F 75 20 132/76 05/25/17 14:24 80 05/25/17 12:40 19 05/25/17 12:00 97.4 F L 75 20 125/69 95 - Physical Examination General: No Apparent Distress HEENT: Positive: PERRL Neck: Positive: trachea midline Cardiac: Positive: Reg Rate and Rhythm Neuro: Positive: Grossly Intact Extremities: Present: +2 Edema - Labs and Meds CBC 05/26/17 Range/Units 05:31 WBC 3.9 L (4.5-11.0) K/mm3 RBC 3.33 L (3.65-5.03) M/mm3 Hgb 10.0 L (11.8-15.2) gm/dl Hct 29.9 L (35.5-45.6) % Plt Count 202 (140-440) K/mm3 Lymph # 0.7 L (1.2-5.4) K/mm3 [place] # 0.6 (0.0-0.8) K/mm3 Eos # 0.4 (0.0-0.4) K/mm3 Baso # 0.1 (0.0-0.1) K/mm3 Comprehensive Metabolic Panel 05/25/17 05/26/17 Range/Units 10:10 05:31 Sodium 140 142 (137-145) mmol/L Potassium 5.4 H 5.0 (3.6-5.0) mmol/L Chloride 108.4 H 108.0 H (98-107) mmol/L Carbon Dioxide 20 L 21 L (22-30) mmol/L BUN 42 H 44 H (9-20) mg/dL Creatinine 2.4 H 2.5 H (0.8-1.5) mg/dL Glucose 208 H 150 H (75-100) mg/dL Calcium 7.7 L 7.7 L (8.4-10.2) mg/dL - EKG Sinus rhythms and dysrhythmias: sinus rhythm
[2017-05-26] MEDS: PERCOCET 5/325 PO PRN ×2 (12:29→23:10)
[2017-05-26] MEDS ORDERED: LASIX IV ONE (18:00)
[2017-05-27] MEDS: ALBURX 25% (ALBUMIN) IV SCH ×2 (02:36→20:24)
[2017-05-27] MEDS: LASIX IV SCH ×2 (06:19→21:11)
[2017-05-27] MEDS: HEPARIN SUB-Q SCH ×3 (06:20→21:11)
[2017-05-27 06:35] LABS: Calcium 7.5 mg/dL (8.4-10.2)
[2017-05-27] MEDS ORDERED: HEPARIN 10,000 UNITS/10 ML ONE (08:14)
[2017-05-27] MEDS ORDERED: HEPARIN/NS 5000 UNIT/500ML(CATH LAB) 1,000 ML IR ONE (08:14)
[2017-05-27] MEDS ORDERED: SUBLIMAZE ONE (08:15)
[2017-05-27] MEDS ORDERED: ANCEF/STERILE WATER 2 GM/20 ML 2 GM/20 ML SYRINGE IV ONE (08:15)
[2017-05-27] MEDS ORDERED: VERSED ONE (08:15)
[2017-05-27] MEDS ORDERED: NACL 0.9% 250ML 250 ML ONE (08:16)
[2017-05-27] MEDS: XYLOCAINE 2% INFILTRATI ONE ×2 (08:21→08:59)
--- NOTE | 2017-05-27 09:26 | Progress Note ---
Assessment and Plan Impression: * DEBO on ckd 3--cr 1.6 12/29 * hyperkalemia * Anasarca * HTN * Cardiomyopathty * DM type 2 * Chronic hep C * cardiomyopathy Plan: * renal/low k diet * initiate hd for ultrafiltration and volume control * kayexalate prn for hyperkalemia * counseled on dietary intake * continue aggressive diuresis * follow up 24hr crcl * daily lytes * hypoalbumemia noted--no nephrotic syndrome * follow up prot/cr ratio * ua and vasculitis workup noted * fluid restriction Subjective Date of service: 05/27/17 Principal diagnosis: hyperkalemia, ckd 3 Interval history: resting in bed today Objective - Exam Narrative Exam: Physical Exam: GENERAL: The patient is well-developed well-nourished. HENT: Normocephalic. Atraumatic. Patient has moist mucous membranes. EYES: Extraocular motions are intact. Pupils equal reactive to light bilaterally. NECK: Supple. Trachea is midline. CHEST/LUNGS: Coarse breath sounds at the chest. No tachypnea or accessory muscle use. There is no respiratory distress noted. HEART/CARDIOVASCULAR: Regular. There is no tachycardia. There is no murmur. ABDOMEN: Abdomen is soft, nontender. Patient has normal bowel sounds. SKIN: Patient has 2+ pitting edema to the bilateral lower extremities. He has nonpitting swelling to the scrotum, groin and lower abdomen. NEURO: The patient is awake, alert, and oriented. The patient is cooperative. The patient has no focal neurologic deficits. The patient has normal speech. MUSCULOSKELETAL: There is no tenderness or deformity. There is no limitation range of motion. There is no evidence of acute injury. : There is some swelling seen to the scrotum and penis. No lesions or rash seen. The area is not tender to palpation. No palpable hernias - Vital Signs Vital signs: Vital Signs - 12hr 05/26/17 05/27/17 05/27/17 23:12 01:04 06:00 Temperature 98.5 F Pulse Rate 85 77 72 Respiratory 20 Rate Blood Pressure 161/85 122/57 125/67 O2 Sat by Pulse 95 97 Oximetry - Lab 05/26/17 05:31 05/27/17 05:53 Most recent lab results Calcium 7.5 mg/dL (8.4-10.2) L 05/27/17 05:53 Urine Creatinine 66.7 mg/dL (0.1-20.0) H 05/25/17 Unknown Urine Total Protein 52 mg/dL (5-11.8) H 05/25/17 Unknown
[2017-05-27] MEDS ORDERED: NACL 0.9% 100 ML IV PRN ×2 (10:00→21:04)
--- NOTE | 2017-05-27 10:27 | Operative Report ---
Operative Report Operative Report: Procedure: 1. Right internal jugular non-tunneled dialysis catheter placement 2. Ultrasound guided puncture of the right internal jugular vein. Date: 05/27/2017 Physician: Keturah Cervantes MD Indication: 62 year old male with renal failure, in need of dialysis. Technique: The patient was placed in the supine position and prepped and draped in the usual sterile fashion. A timeout was performed. Local anesthetic was administered. Under direct ultrasound guidance, the right internal jugular vein was accessed with an 18-gauge needle. An .035 wire was advanced. After serial tissue dilation, the dialysis catheter was advanced over the wire. Vacuum aspiration and flushing was performed. Each lumen was instilled with heparin. The catheter was secured to the skin with 2-0 Ethilon suture. Sterile dressings were placed, and the patient was transported from the procedure area in stable condition. Findings: 1. Ultrasound demonstrates a patent and compressible right internal jugular vein. 2. There is successful placement of a 15 cm non-tunneled dialysis catheter via the right internal jugular vein. 3. Each lumen flushes and aspirates briskly. 4. Positioning of the catheter tip within the right atrium will be confirmed by Xray
[2017-05-27] MEDS: APRESOLINE PO SCH ×3 (10:35→20:25)
--- NOTE | 2017-05-27 11:32 | XRay Report ---
AP CHEST: HISTORY: Vas-Cath placement A right IJ vas catheter has been inserted which terminates in the superior right atrium. Mild increase in cardiomegaly, vascular congestion and small right pleural effusion is demonstrated since 05/23/17. No evidence for pneumothorax. IMPRESSION: Vas catheter placement as described. No pneumothorax. Mild CHF.
--- NOTE | 2017-05-27 11:36 | Ultrasound Report ---
ULTRASOUND ABDOMEN COMPLETE: TECHNIQUE: Transabdominal ultrasound with color Doppler interrogation. HISTORY: Abdominal distention. COMPARISON: none. FINDINGS: LIVER: Within normal limits. BILIARY SYSTEM: No evidence for cholelithiasis or biliary dilatation. The CBD measures 3 mm. PANCREAS: Normal. SPLEEN: Within normal limits. 9.9 cm. KIDNEYS: Both kidneys are mildly echogenic consistent with nonspecific renal parenchymal disease. No focal renal lesion or hydronephrosis is identified. AORTA/IVC: Normal. ASCITES: Small to medium ascites is identified. IMPRESSION: Small to medium ascites. Echogenic kidneys consistent with nonspecific renal parenchymal disease.
--- NOTE | 2017-05-27 12:28 | Progress Note ---
Assessment and Plan - Patient Problems (1) Heart failure Current Visit: Yes Status: Acute Plan to address problem: Patient has heart failure with preserved ejection fraction. Continue diuretic therapy and blood pressure management and dialysis initiation for volume management. Subjective Date of service: 05/27/17 Principal diagnosis: hyperkalemia, ckd 3 Interval history: Patient is comfortable, status post placement of a dialysis access catheter. There are no cardiac complaints. Objective Vital Signs Temp Pulse Pulse Resp BP BP Pulse Ox 05/27/17 11:00 82 19 05/27/17 06:00 98.5 F 72 20 125/67 97 05/27/17 01:04 77 122/57 95 05/26/17 23:12 85 161/85 05/26/17 20:39 98.5 F 85 18 161/85 93 05/26/17 16:47 97.4 F L 78 20 131/72 94 05/26/17 12:58 77 05/26/17 12:29 19 - Physical Examination General: No Apparent Distress HEENT: Positive: PERRL Neck: Positive: trachea midline Cardiac: Positive: Reg Rate and Rhythm Lungs: Positive: Decreased Breath Sounds Neuro: Positive: Grossly Intact Abdomen: Positive: Unremarkable, Soft, Active Bowel Sounds Skin: Positive: Clear Extremities: Present: +1 Edema - Labs and Meds Comprehensive Metabolic Panel 05/27/17 Range/Units 05:53 Sodium 142 (137-145) mmol/L Potassium 4.6 (3.6-5.0) mmol/L Chloride 108.7 H (98-107) mmol/L Carbon Dioxide 22 (22-30) mmol/L BUN 46 H (9-20) mg/dL Creatinine 2.4 H (0.8-1.5) mg/dL Glucose 159 H (75-100) mg/dL Calcium 7.5 L (8.4-10.2) mg/dL - EKG Sinus rhythms and dysrhythmias: sinus rhythm
[2017-05-27] MEDS: COREG PO SCH ×2 (12:52→21:12)
[2017-05-27] MEDS: LYRICA PO SCH ×2 (13:00→21:12)
[2017-05-27] MEDS: BABY ASPIRIN PO SCH (13:00)
[2017-05-27] MEDS: celeXA PO SCH (13:01)
[2017-05-27] MEDS: SODIUM BICARBONATE PO SCH ×2 (13:01→21:16)
[2017-05-27] MEDS: PROCRIT IV PRN (16:27)
[2017-05-27] MEDS: HEPARIN IV PRN (17:11)
[2017-05-27 18:08] LABS: Myeloperoxidase Antibody <1.0 AI (<1.0)
--- NOTE | 2017-05-27 18:27 | Progress Note ---
Assessment and Plan Assessment and plan: 62-year-old -[place] male with h/o CKD, DM, CHF presents with a two- week history of present worsening swelling of the legs, scrotum and abdomen and some mild shortness of breath. /Hyperkalemia, with Potassium increased to 6.0. - K level 5.0 today - s/p multiple round of kayexalate with calcium gluconate, insulin with D50, sodium bicarbonate to control K - started on oral sodium bicarbonate - monitor BMP, nephrology consulted - cont on renal diet /Cory on Chronic kidney disease stage III. - cont to Monitor renal function, Avoid nephrotoxins. - consulted nephrology, volume status not improving with diuresis - plan to start HD short term to control volume status and electrolytes /Acute systolic and diastolic heart failure - 2d echo showed EF 45-50% and grade 2 DD, his symptom might be also precipitated from volume overload and declining renaL FUNCTION - CXR showed mild CHF and left pleural effusion - monitor to telemetry bed - will cont on Aspirin, statin, and Lasix IV 80 mg BID - consulted cardiology - daily weights, monitor in's and O's /Hypertensive urgency. - Given hydralazine iv. started on oral Coreg, hydralazine and lasix /Diabetes mellitus type 2. - We cont on SSI /Hyperlipidemia. - On statin. /Hepatitis C - Monitor liver function /Polysubstance abuse with Marijuana, Cocaine - Counseled for cessation /Neuropathy. - Continue Lyrica from home. /Scrotal swelling - testicular US showed nonspecific swelling of the scrotum - cont lasix for now, monitor clinically DVT prophylaxis with Heparin subcut. Full code status 05/27/2017: Hemodialysis to start today after Vas-Cath History Interval history: Patient was seen and examined. Follow-up on current diagnosis. Overnight uneventful. Patient denies any chest pain, shortness breath, nausea/vomiting or severe headaches. Imaging, nursing note, chart, labs and old chart reviewed. Discussed with patient. Hospitalist Physical - Physical exam Narrative exam: GENERAL: well-developed and well-nourished AAM lying on bed appeared to be in no discomfort. HEENT: Normocephalic. Atraumatic. No conjunctival congestion or icterus. Patient has moist mucous membranes. NECK: Supple. Trachea midline. CHEST/LUNGS: Clear to auscultated bilaterally, breathing nonlabored. No wheezes crackles or rhonchi. HEART/CARDIOVASCULAR: Regular in rate and rhythm. S1 and S2 positive. ABDOMEN: Abdomen is soft, nontender, distended, Patient has normal bowel sounds. genitourinary: scrotal and penile swelling, no skin color change SKIN: There is no rash. Warm and dry. NEURO: No new focal motor deficit. Follows command. MUSCULOSKELETAL: No joint effusion or tenderness. EXTRIMITY: + pedal edema, no cyanosis or clubbing. PSYCH: Cooperative. Oriented 3 - Constitutional Vitals: Temp Pulse Resp BP Pulse Ox 97.6 F 81 20 162/82 97 05/27/17 16:28 05/27/17 16:28 05/27/17 16:28 05/27/17 16:28 05/27/17 06:00 General appearance: Present: no acute distress Results - Labs CBC & Chem 7: 05/26/17 05:31 05/27/17 05:53 Labs: Laboratory Last Values WBC 3.9 K/mm3 (4.5-11.0) L 05/26/17 05:31 RBC 3.33 M/mm3 (3.65-5.03) L 05/26/17 05:31 Hgb 10.0 gm/dl (11.8-15.2) L 05/26/17 05:31 Hct 29.9 % (35.5-45.6) L 05/26/17 05:31 MCV 90 fl (84-94) 05/26/17 05:31 MCH 30 pg (28-32) 05/26/17 05:31 MCHC 33 % (32-34) 05/26/17 05:31 RDW 15.3 % (13.2-15.2) H 05/26/17 05:31 Plt Count 202 K/mm3 (140-440) 05/26/17 05:31 Lymph % (Auto) 18.9 % (13.4-35.0) 05/26/17 05:31 [place] % (Auto) 15.1 % (0.0-7.3) H 05/26/17 05:31 Eos % (Auto) 9.5 % (0.0-4.3) H 05/26/17 05:31 Baso % (Auto) 1.4 % (0.0-1.8) 05/26/17 05:31 Lymph # 0.7 K/mm3 (1.2-5.4) L 05/26/17 05:31 [place] # 0.6 K/mm3 (0.0-0.8) 05/26/17 05:31 Eos # 0.4 K/mm3 (0.0-0.4) 05/26/17 05:31 Baso # 0.1 K/mm3 (0.0-0.1) 05/26/17 05:31 Seg Neutrophils % 55.1 % (40.0-70.0) 05/26/17 05:31 Seg Neutrophils # 2.1 K/mm3 (1.8-7.7) 05/26/17 05:31 Sodium 142 mmol/L (137-145) 05/27/17 05:53 Potassium 4.6 mmol/L (3.6-5.0) 05/27/17 05:53 Chloride 108.7 mmol/L (98-107) H 05/27/17 05:53 Carbon Dioxide 22 mmol/L (22-30) 05/27/17 05:53 Anion Gap 16 mmol/L 05/27/17 05:53 BUN 46 mg/dL (9-20) H 05/27/17 05:53 Creatinine 2.4 mg/dL (0.8-1.5) H 05/27/17 05:53 Estimated GFR 28 ml/min 05/27/17 05:53 BUN/Creatinine Ratio 19 % 05/27/17 05:53 Glucose 159 mg/dL (75-100) H 05/27/17 05:53 POC Glucose 317 (70-105) H 05/27/17 16:55 Calcium 7.5 mg/dL (8.4-10.2) L 05/27/17 05:53 Total Bilirubin 0.30 mg/dL (0.1-1.2) 05/23/17 08:29 AST 29 units/L (5-40) 05/23/17 08:29 ALT 17 units/L (7-56) 05/23/17 08:29 Alkaline Phosphatase 82 units/L (35-129) 05/23/17 08:29 Troponin T 0.081 ng/mL (0.00-0.029) H 05/23/17 08:29 NT-Pro-B Natriuret Pep 18888 pg/mL (0-900) H 05/23/17 08:29 Total Protein 5.9 g/dL (6.3-8.2) L 05/23/17 08:29 Albumin 2.5 g/dL (3.9-5) L 05/23/17 08:29 Albumin/Globulin Ratio 0.7 % 05/23/17 08:29 Triglycerides 77 mg/dL (2-149) 05/23/17 08:29 Cholesterol 136 mg/dL (50-199) 05/23/17 08:29 LDL Cholesterol Direct 69 mg/dL (50-130) 05/23/17 08:29 HDL Cholesterol 52 mg/dL (40-59) 05/23/17 08:29 Cholesterol/HDL Ratio 2.61 % 05/23/17 08:29 Urine Color Yellow (Yellow) 05/25/17 Unknown Urine Turbidity Clear (Clear) 05/25/17 Unknown Urine pH 5.0 (5.0-7.0) 05/25/17 Unknown Ur Specific [place] 1.009 (1.003-1.030) 05/25/17 Unknown Urine Protein 30 mg/dl mg/dL (Negative) 05/25/17 Unknown Urine Glucose (UA) Neg mg/dL (Negative) 05/25/17 Unknown Urine Ketones Neg mg/dL (Negative) 05/25/17 Unknown Urine Blood Neg (Negative) 05/25/17 Unknown Urine Nitrite Neg (Negative) 05/25/17 Unknown Urine Bilirubin Neg (Negative) 05/25/17 Unknown Urine Urobilinogen < 2.0 mg/dL (<2.0) 05/25/17 Unknown Ur Leukocyte Esterase Neg (Negative) 05/25/17 Unknown Urine WBC (Auto) 1.0 /HPF (0.0-6.0) 05/25/17 Unknown Urine RBC (Auto) 3.0 /HPF (0.0-6.0) 05/25/17 Unknown U Epithel Cells (Auto) < 1.0 /HPF (0-13.0) 05/25/17 Unknown Urine Bacteria (Auto) 1+ /HPF (Negative) 05/25/17 Unknown Hyaline Casts 4 /LPF 05/23/17 07:46 Urine Yeast (Budding) Few /HPF 05/25/17 Unknown Urine Eosinophils None seen (None Seen) 05/25/17 Unknown Urine Total Volume 1300 05/26/17 09:23 Urine Creatinine 66.7 mg/dL (0.1-20.0) H 05/25/17 Unknown Ur Total Protein 24 Hr 1040.00 (2-200) H 05/26/17 09:23 Protein/Creatinin Ratio 0.78 05/25/17 Unknown Urine Total Protein 80 mg/dL (5-11.8) H 05/26/17 09:23 Proteinase 3 (PR3) Ab <1.0 AI (<1.0) 05/24/17 13:16 Myeloperoxidase Ab <1.0 AI (<1.0) 05/24/17 13:16 Hep Bs Antigen Non-reactive (Negative) 05/24/17 13:16 Hepatitis C Antibody Reactive (NonReactive) A 05/24/17 13:16
[2017-05-27] MEDS: PERCOCET 5/325 PO PRN (21:11)
[2017-05-28] MEDS: ALBURX 25% (ALBUMIN) IV SCH (01:59)
[2017-05-28] MEDS: PERCOCET 5/325 PO PRN ×2 (04:28→22:11)
[2017-05-28 05:46] LABS: Hemoglobin 9.4 gm/dl (11.8-15.2); Mean Corpuscular HGB Conc 33 % (32-34); Mean Corpuscular Hemoglobin 30 pg (28-32); Mean Corpuscular Volume 90 fl (84-94); Platelet Count 162 K/mm3 (140-440); Red Blood Count 3.11 M/mm3 (3.65-5.03); Red Cell Distribution Width 14.9 % (13.2-15.2)
[2017-05-28 05:58] LABS: Calcium 7.7 mg/dL (8.4-10.2)
[2017-05-28] MEDS: HEPARIN SUB-Q SCH ×3 (06:18→22:08)
[2017-05-28] MEDS: LASIX IV SCH (06:22)
--- NOTE | 2017-05-28 09:34 | Progress Note ---
Assessment and Plan Impression: * DEBO on ckd 3--cr 1.6 12/29 * hyperkalemia * Anasarca * HTN * Cardiomyopathty--diastolic and systolic * pulm HTN * DM type 2 * Chronic hep C * cardiomyopathy Plan: * renal/low k diet * ? sleep apnea--? cpap at night * initiated hd for ultrafiltration and volume control * kayexalate prn for hyperkalemia * counseled on dietary intake * continue aggressive po diuresis--lasix/zaroxolyn * follow up 24hr crcl noted * daily lytes * hypoalbumemia noted--no nephrotic syndrome * ua and vasculitis workup noted * fluid restriction Subjective Date of service: 05/28/17 Principal diagnosis: hyperkalemia, ckd 3 Interval history: resting in bed today Objective - Exam Narrative Exam: Physical Exam: GENERAL: The patient is well-developed well-nourished. HENT: Normocephalic. Atraumatic. Patient has moist mucous membranes. EYES: Extraocular motions are intact. Pupils equal reactive to light bilaterally. NECK: Supple. Trachea is midline. CHEST/LUNGS: Coarse breath sounds at the chest. No tachypnea or accessory muscle use. There is no respiratory distress noted. HEART/CARDIOVASCULAR: Regular. There is no tachycardia. There is no murmur. ABDOMEN: Abdomen is soft, nontender. Patient has normal bowel sounds. SKIN: Patient has 2+ pitting edema to the bilateral lower extremities. He has nonpitting swelling to the scrotum, groin and lower abdomen. NEURO: The patient is awake, alert, and oriented. The patient is cooperative. The patient has no focal neurologic deficits. The patient has normal speech. MUSCULOSKELETAL: There is no tenderness or deformity. There is no limitation range of motion. There is no evidence of acute injury. : There is some swelling seen to the scrotum and penis. No lesions or rash seen. The area is not tender to palpation. No palpable hernias - Vital Signs Vital signs: Vital Signs - 12hr 05/28/17 05/28/17 05/28/17 00:10 03:35 08:44 Temperature 98.5 F 97.4 F L 97.7 F Pulse Rate 82 80 76 Respiratory 18 18 18 Rate Blood Pressure 127/69 Blood Pressure 144/72 145/72 [Left] O2 Sat by Pulse 94 18 L 96 Oximetry - Lab 05/28/17 04:59 05/28/17 04:59 Most recent lab results Calcium 7.7 mg/dL (8.4-10.2) L 05/28/17 04:59 Urine Creatinine 66.7 mg/dL (0.1-20.0) H 05/25/17 Unknown Ur Total Protein 24 Hr 1040.00 (2-200) H 05/26/17 09:23 Urine Total Protein 80 mg/dL (5-11.8) H 05/26/17 09:23
[2017-05-28] MEDS: celeXA PO SCH (09:52)
[2017-05-28] MEDS: BABY ASPIRIN PO SCH (09:52)
[2017-05-28] MEDS: SODIUM BICARBONATE PO SCH ×2 (09:53→22:12)
[2017-05-28] MEDS: LYRICA PO SCH ×2 (09:53→22:11)
[2017-05-28] MEDS: COREG PO SCH ×3 (09:53→22:12)
[2017-05-28] MEDS: APRESOLINE PO SCH ×3 (09:54→22:16)
[2017-05-28] MEDS: ZAROXOLYN PO SCH (09:54)
--- NOTE | 2017-05-28 10:17 | Progress Note ---
Assessment and Plan Acute heart failure with a preserved ejection fraction secondary to noncompliance with medications EF 45-50% on echo this admission no ischemia on MPI 12/2016 Acute on choric Renal failure initiated on dialysis Hypertension Insulin-dependent diabetes mellitus Recommend: Continue medical therapy for heart failure with a preserved ejection fraction. Subjective Date of service: 05/28/17 Principal diagnosis: hyperkalemia, ckd 3 Interval history: Patient initiated on dialysis 05/27. He denies chest pain and shortness of breath. Objective Vital Signs Temp Pulse Pulse Resp BP BP Pulse Ox 05/28/17 08:44 97.7 F 76 18 145/72 96 05/28/17 03:35 97.4 F L 80 18 144/72 18 L 05/28/17 00:10 98.5 F 82 18 127/69 94 05/27/17 21:12 94 H 185/105 05/27/17 20:34 98.8 F 94 H 185/105 96 05/27/17 16:46 98.4 F 85 18 165/81 87 05/27/17 16:28 97.6 F 81 20 162/82 05/27/17 16:15 80 170/93 05/27/17 16:00 81 173/95 05/27/17 15:45 79 162/95 05/27/17 15:30 78 158/92 05/27/17 15:15 76 154/85 05/27/17 15:00 76 155/86 05/27/17 14:45 77 162/82 05/27/17 14:30 78 165/92 05/27/17 14:15 81 162/92 05/27/17 14:00 73 160/100 05/27/17 13:45 81 180/104 05/27/17 13:30 97.7 F 81 20 171/99 05/27/17 11:58 78 154/82 97 05/27/17 11:00 82 19 - Physical Examination General: No Apparent Distress HEENT: Positive: PERRL Neck: Positive: trachea midline Cardiac: Positive: Reg Rate and Rhythm Lungs: Positive: Decreased Breath Sounds Neuro: Positive: Grossly Intact Extremities: Present: +1 Edema - Labs and Meds CBC 05/28/17 Range/Units 04:59 WBC 3.6 L (4.5-11.0) K/mm3 RBC 3.11 L (3.65-5.03) M/mm3 Hgb 9.4 L (11.8-15.2) gm/dl Hct 28.0 L (35.5-45.6) % Plt Count 162 (140-440) K/mm3 Comprehensive Metabolic Panel 05/28/17 Range/Units 04:59 Sodium 141 (137-145) mmol/L Potassium 4.3 (3.6-5.0) mmol/L Chloride 104.6 (98-107) mmol/L Carbon Dioxide 25 (22-30) mmol/L BUN 30 H (9-20) mg/dL Creatinine 1.8 H (0.8-1.5) mg/dL Glucose 171 H (75-100) mg/dL Calcium 7.7 L (8.4-10.2) mg/dL - EKG Sinus rhythms and dysrhythmias: sinus rhythm
[2017-05-28 11:38] LABS: ANA Screen, IFA Negative (Negative)
[2017-05-28] MEDS ORDERED: NACL 0.9 (PRIMING MACHINE ONLY DIALYSIS) MC ONE (11:47)
--- NOTE | 2017-05-28 12:27 | Query- Renal Failure ---
Laura Nichols Wise Date:___05/28/17 Sandblaster Glass/CDS:___Rohit Phone#:___[phone] Exercise your independent professional judgment when responding to query. Questions asked do not imply a particular answer is desired or expected. We greatly appreciate your clarification on this issue. Clinical Documentation States: 62 year old male was admitted on 05/23/17 The progress note (05/27/17) states " Assessment and plan: 62-year-old -[place] male with h/o CKD, DM, CHF presents with a two- week history of present worsening swelling of the legs, scrotum and abdomen and some mild shortness of breath. /Cory on Chronic kidney disease stage III. " Clinical Findings Show: 05/23/17 05/26/17 05/28/17 Creatinine: 2.1 2.5 1.8 Please clarify if you mean: Acute Renal Failure with or due to: [ ] Tubular Necrosis [ ] Medullary Necrosis [ x] Vasomotor Nephropathy [ ] Shock Kidney [ ] Tubular Nephrosis [ ] Renal Tubular Stasis [ ] Cortical Necrosis [ ] Acute Renal Failure (unspecified) [ ] Lower Tubular Nephrosis [ ] Other: [ ] Not Applicable Present on Admission: [x ] Yes (Y) [ ] Clinically undeterminable (W) [ ] No (N) Please also document response in your Progress Notes and/or Discharge Summary and indicate if the condition was present on admission. TEAD
[2017-05-28] MEDS: PROCRIT IV PRN (12:49)
[2017-05-28] MEDS: HEPARIN IV PRN (13:47)
[2017-05-28] MEDS: LASIX PO SCH (17:43)
--- NOTE | 2017-05-28 18:07 | Progress Note ---
Assessment and Plan Assessment and plan: 62-year-old -[place] male with h/o CKD, DM, CHF presents with a two- week history of present worsening swelling of the legs, scrotum and abdomen and some mild shortness of breath. /Hyperkalemia, with Potassium increased to 6.0. - K level 5.0 today - s/p multiple round of kayexalate with calcium gluconate, insulin with D50, sodium bicarbonate to control K - started on oral sodium bicarbonate - monitor BMP, nephrology consulted - cont on renal diet /ARF/CKD 3, due to vasomotor nephropathy, poa - cont to Monitor renal function, Avoid nephrotoxins. - consulted nephrology, volume status not improving with diuresis - plan to start HD short term to control volume status and electrolytes /Acute systolic and diastolic heart failure - 2d echo showed EF 45-50% and grade 2 DD, his symptom might be also precipitated from volume overload and declining renaL FUNCTION - CXR showed mild CHF and left pleural effusion - monitor to telemetry bed - will cont on Aspirin, statin, and Lasix IV 80 mg BID - consulted cardiology - daily weights, monitor in's and O's /Hypertensive urgency. - Given hydralazine iv. started on oral Coreg, hydralazine and lasix /Diabetes mellitus type 2. - We cont on SSI /Hyperlipidemia. - On statin. /Hepatitis C - Monitor liver function /Polysubstance abuse with Marijuana, Cocaine - Counseled for cessation /Neuropathy. - Continue Lyrica from home. /Scrotal swelling - testicular US showed nonspecific swelling of the scrotum - cont lasix for now, monitor clinically DVT prophylaxis with Heparin subcut. Full code status 05/27/2017: Hemodialysis to start today after Vas-Cath 05/28/17: still fluid overloaded, continue to diuresis History Interval history: Patient was seen and examined. Follow-up on current diagnosis. Overnight uneventful. Patient denies any chest pain, shortness breath, nausea/vomiting or severe headaches. Imaging, nursing note, chart, labs and old chart reviewed. Discussed with patient. Hospitalist Physical - Physical exam Narrative exam: GENERAL: well-developed and well-nourished AAM lying on bed appeared to be in no discomfort. HEENT: Normocephalic. Atraumatic. No conjunctival congestion or icterus. Patient has moist mucous membranes. NECK: Supple. Trachea midline. CHEST/LUNGS: Clear to auscultated bilaterally, breathing nonlabored. No wheezes crackles or rhonchi. HEART/CARDIOVASCULAR: Regular in rate and rhythm. S1 and S2 positive. ABDOMEN: Abdomen is soft, nontender, distended, Patient has normal bowel sounds. genitourinary: scrotal and penile swelling, no skin color change SKIN: There is no rash. Warm and dry. NEURO: No new focal motor deficit. Follows command. MUSCULOSKELETAL: No joint effusion or tenderness. EXTRIMITY: + pedal edema, no cyanosis or clubbing. PSYCH: Cooperative. Oriented 3 - Constitutional Vitals: Temp Pulse Resp BP Pulse Ox 97.8 F 83 18 144/68 95 05/28/17 17:45 05/28/17 17:45 05/28/17 17:45 05/28/17 17:45 05/28/17 17:45 General appearance: Present: no acute distress Results - Labs CBC & Chem 7: 05/28/17 04:59 05/28/17 04:59 Labs: Laboratory Last Values WBC 3.6 K/mm3 (4.5-11.0) L 05/28/17 04:59 RBC 3.11 M/mm3 (3.65-5.03) L 05/28/17 04:59 Hgb 9.4 gm/dl (11.8-15.2) L 05/28/17 04:59 Hct 28.0 % (35.5-45.6) L 05/28/17 04:59 MCV 90 fl (84-94) 05/28/17 04:59 MCH 30 pg (28-32) 05/28/17 04:59 MCHC 33 % (32-34) 05/28/17 04:59 RDW 14.9 % (13.2-15.2) 05/28/17 04:59 Plt Count 162 K/mm3 (140-440) 05/28/17 04:59 Lymph % (Auto) 18.9 % (13.4-35.0) 05/26/17 05:31 Bennett % (Auto) 15.1 % (0.0-7.3) H 05/26/17 05:31 Eos % (Auto) 9.5 % (0.0-4.3) H 05/26/17 05:31 Baso % (Auto) 1.4 % (0.0-1.8) 05/26/17 05:31 Lymph # 0.7 K/mm3 (1.2-5.4) L 05/26/17 05:31 Bennett # 0.6 K/mm3 (0.0-0.8) 05/26/17 05:31 Eos # 0.4 K/mm3 (0.0-0.4) 05/26/17 05:31 Baso # 0.1 K/mm3 (0.0-0.1) 05/26/17 05:31 Seg Neutrophils % 55.1 % (40.0-70.0) 05/26/17 05:31 Seg Neutrophils # 2.1 K/mm3 (1.8-7.7) 05/26/17 05:31 Sodium 141 mmol/L (137-145) 05/28/17 04:59 Potassium 4.3 mmol/L (3.6-5.0) 05/28/17 04:59 Chloride 104.6 mmol/L (98-107) 05/28/17 04:59 Carbon Dioxide 25 mmol/L (22-30) 05/28/17 04:59 Anion Gap 16 mmol/L 05/28/17 04:59 BUN 30 mg/dL (9-20) H 05/28/17 04:59 Creatinine 1.8 mg/dL (0.8-1.5) H 05/28/17 04:59 Estimated GFR 39 ml/min 05/28/17 04:59 BUN/Creatinine Ratio 17 % 05/28/17 04:59 Glucose 171 mg/dL (75-100) H 05/28/17 04:59 POC Glucose 145 (70-105) H 05/28/17 08:20 Calcium 7.7 mg/dL (8.4-10.2) L 05/28/17 04:59 Total Bilirubin 0.30 mg/dL (0.1-1.2) 05/23/17 08:29 AST 29 units/L (5-40) 05/23/17 08:29 ALT 17 units/L (7-56) 05/23/17 08:29 Alkaline Phosphatase 82 units/L (35-129) 05/23/17 08:29 Troponin T 0.081 ng/mL (0.00-0.029) H 05/23/17 08:29 NT-Pro-B Natriuret Pep 21642 pg/mL (0-900) H 05/23/17 08:29 Total Protein 5.9 g/dL (6.3-8.2) L 05/23/17 08:29 Albumin 2.5 g/dL (3.9-5) L 05/23/17 08:29 Albumin/Globulin Ratio 0.7 % 05/23/17 08:29 Triglycerides 77 mg/dL (2-149) 05/23/17 08:29 Cholesterol 136 mg/dL (50-199) 05/23/17 08:29 LDL Cholesterol Direct 69 mg/dL (50-130) 05/23/17 08:29 HDL Cholesterol 52 mg/dL (40-59) 05/23/17 08:29 Cholesterol/HDL Ratio 2.61 % 05/23/17 08:29 Urine Color Yellow (Yellow) 05/25/17 Unknown Urine Turbidity Clear (Clear) 05/25/17 Unknown Urine pH 5.0 (5.0-7.0) 05/25/17 Unknown Ur Specific [place] 1.009 (1.003-1.030) 05/25/17 Unknown Urine Protein 30 mg/dl mg/dL (Negative) 05/25/17 Unknown Urine Glucose (UA) Neg mg/dL (Negative) 05/25/17 Unknown Urine Ketones Neg mg/dL (Negative) 05/25/17 Unknown Urine Blood Neg (Negative) 05/25/17 Unknown Urine Nitrite Neg (Negative) 05/25/17 Unknown Urine Bilirubin Neg (Negative) 05/25/17 Unknown Urine Urobilinogen < 2.0 mg/dL (<2.0) 05/25/17 Unknown Ur Leukocyte Esterase Neg (Negative) 05/25/17 Unknown Urine WBC (Auto) 1.0 /HPF (0.0-6.0) 05/25/17 Unknown Urine RBC (Auto) 3.0 /HPF (0.0-6.0) 05/25/17 Unknown U Epithel Cells (Auto) < 1.0 /HPF (0-13.0) 05/25/17 Unknown Urine Bacteria (Auto) 1+ /HPF (Negative) 05/25/17 Unknown Hyaline Casts 4 /LPF 05/23/17 07:46 Urine Yeast (Budding) Few /HPF 05/25/17 Unknown Urine Eosinophils None seen (None Seen) 05/25/17 Unknown Urine Total Volume 1300 05/26/17 09:23 Urine Creatinine 66.7 mg/dL (0.1-20.0) H 05/25/17 Unknown Ur Total Protein 24 Hr 1040.00 (2-200) H 05/26/17 09:23 Protein/Creatinin Ratio 0.78 05/25/17 Unknown Urine Total Protein 80 mg/dL (5-11.8) H 05/26/17 09:23 AMOS Screen Negative (Negative) 05/24/17 13:16 Proteinase 3 (PR3) Ab <1.0 AI (<1.0) 05/24/17 13:16 Myeloperoxidase Ab <1.0 AI (<1.0) 05/24/17 13:16 Complement C3 73 mg/dL (82-185) L 05/24/17 13:16 Complement C4 21 mg/dL (15-53) 05/24/17 13:16 Hep Bs Antigen Non-reactive (Negative) 05/24/17 13:16 Hepatitis C Antibody Reactive (NonReactive) A 05/24/17 13:16
[2017-05-29] MEDS: HEPARIN SUB-Q SCH ×3 (06:20→21:51)
[2017-05-29] MEDS: LASIX PO SCH ×2 (06:21→17:26)
[2017-05-29 06:26] LABS: Calcium 7.4 mg/dL (8.4-10.2)
--- NOTE | 2017-05-29 09:53 | Progress Note ---
Assessment and Plan Impression: * DEBO on ckd 3--cr 1.6 12/29 * hyperkalemia * Anasarca * HTN * Cardiomyopathty--diastolic and systolic--ef 40% * pulm HTN * DM type 2 * Chronic hep C * cardiomyopathy Plan: * renal/low k diet * ? sleep apnea--? cpap at night * initiated hd for ultrafiltration and volume control * kayexalate prn for hyperkalemia * counseled on dietary intake * continue aggressive po diuresis--lasix/zaroxolyn * follow up 24hr crcl noted * low c3 noted, negative archie/anca * daily lytes * hypoalbumemia noted--no nephrotic syndrome * ua and vasculitis workup noted * fluid restriction * no plans for outpatient hd at this time Subjective Date of service: 05/29/17 Principal diagnosis: hyperkalemia, ckd 3 Interval history: resting in bed today Objective - Exam Narrative Exam: Physical Exam: GENERAL: The patient is well-developed well-nourished. HENT: Normocephalic. Atraumatic. Patient has moist mucous membranes. EYES: Extraocular motions are intact. Pupils equal reactive to light bilaterally. NECK: Supple. Trachea is midline. CHEST/LUNGS: Coarse breath sounds at the chest. No tachypnea or accessory muscle use. There is no respiratory distress noted. HEART/CARDIOVASCULAR: Regular. There is no tachycardia. There is no murmur. ABDOMEN: Abdomen is soft, nontender. Patient has normal bowel sounds. SKIN: Patient has 2+ pitting edema to the bilateral lower extremities. He has nonpitting swelling to the scrotum, groin and lower abdomen. NEURO: The patient is awake, alert, and oriented. The patient is cooperative. The patient has no focal neurologic deficits. The patient has normal speech. MUSCULOSKELETAL: There is no tenderness or deformity. There is no limitation range of motion. There is no evidence of acute injury. : There is some swelling seen to the scrotum and penis. No lesions or rash seen. The area is not tender to palpation. No palpable hernias - Vital Signs Vital signs: Vital Signs - 12hr 05/28/17 05/28/17 05/28/17 22:00 22:11 22:12 Temperature Pulse Rate 65 95 H Respiratory 20 Rate Respiratory 20 Rate [Right Groin] Blood Pressure 157/86 O2 Sat by Pulse Oximetry 05/29/17 05/29/17 04:35 08:22 Temperature 98.3 F 98.3 F Pulse Rate 79 Respiratory 18 20 Rate Respiratory Rate [Right Groin] Blood Pressure 133/67 148/84 O2 Sat by Pulse 95 Oximetry - Lab 05/28/17 04:59 05/29/17 05:09 Most recent lab results Calcium 7.4 mg/dL (8.4-10.2) L 05/29/17 05:09 Urine Creatinine 66.7 mg/dL (0.1-20.0) H 05/25/17 Unknown Ur Total Protein 24 Hr 1040.00 (2-200) H 05/26/17 09:23 Urine Total Protein 80 mg/dL (5-11.8) H 05/26/17 09:23
[2017-05-29] MEDS: celeXA PO SCH (10:02)
[2017-05-29] MEDS: LYRICA PO SCH ×2 (10:02→21:50)
[2017-05-29] MEDS: SODIUM BICARBONATE PO SCH ×2 (10:02→21:49)
[2017-05-29] MEDS: ZAROXOLYN PO SCH (10:02)
[2017-05-29] MEDS: BABY ASPIRIN PO SCH (10:02)
[2017-05-29] MEDS: APRESOLINE PO SCH ×3 (10:03→21:50)
[2017-05-29] MEDS: COREG PO SCH ×2 (10:03→21:51)
[2017-05-29] MEDS ORDERED: NACL 0.9 (PRIMING MACHINE ONLY DIALYSIS) MC ONE (13:32)
[2017-05-29] MEDS: PROCRIT IV PRN (13:34)
--- NOTE | 2017-05-29 16:01 | Progress Note ---
Assessment and Plan Assessment and plan: 62-year-old -[place] male with h/o CKD, DM, CHF presents with a two- week history of present worsening swelling of the legs, scrotum and abdomen and some mild shortness of breath. /Hyperkalemia, with Potassium increased to 6.0. - K level 5.0 today - s/p multiple round of kayexalate with calcium gluconate, insulin with D50, sodium bicarbonate to control K - started on oral sodium bicarbonate - monitor BMP, nephrology consulted - cont on renal diet /ARF/CKD 3, due to vasomotor nephropathy, poa - cont to Monitor renal function, Avoid nephrotoxins. - consulted nephrology, volume status not improving with diuresis - plan to start HD short term to control volume status and electrolytes /Acute systolic and diastolic heart failure - 2d echo showed EF 45-50% and grade 2 DD, his symptom might be also precipitated from volume overload and declining renaL FUNCTION - CXR showed mild CHF and left pleural effusion - monitor to telemetry bed - will cont on Aspirin, statin, and Lasix IV 80 mg BID - consulted cardiology - daily weights, monitor in's and O's /Hypertensive urgency. - Given hydralazine iv. started on oral Coreg, hydralazine and lasix /Diabetes mellitus type 2. - We cont on SSI /Hyperlipidemia. - On statin. /Hepatitis C - Monitor liver function /Polysubstance abuse with Marijuana, Cocaine - Counseled for cessation /Neuropathy. - Continue Lyrica from home. /Scrotal swelling - testicular US showed nonspecific swelling of the scrotum - cont lasix for now, monitor clinically DVT prophylaxis with Heparin subcut. Full code status 05/27/2017: Hemodialysis to started today after Vas-Cath History Interval history: Patient was seen and examined. Follow-up on current diagnosis. Overnight uneventful. Patient denies any chest pain, shortness breath, nausea/vomiting or severe headaches. Imaging, nursing note, chart, labs and old chart reviewed. Discussed with patient. Hospitalist Physical - Physical exam Narrative exam: GENERAL: well-developed and well-nourished AAM lying on bed appeared to be in no discomfort. HEENT: Normocephalic. Atraumatic. No conjunctival congestion or icterus. Patient has moist mucous membranes. NECK: Supple. Trachea midline. CHEST/LUNGS: Clear to auscultated bilaterally, breathing nonlabored. No wheezes crackles or rhonchi. HEART/CARDIOVASCULAR: Regular in rate and rhythm. S1 and S2 positive. ABDOMEN: Abdomen is soft, nontender, distended, Patient has normal bowel sounds. genitourinary: scrotal and penile swelling, no skin color change SKIN: There is no rash. Warm and dry. NEURO: No new focal motor deficit. Follows command. MUSCULOSKELETAL: No joint effusion or tenderness. EXTRIMITY: + pedal edema, no cyanosis or clubbing. PSYCH: Cooperative. Oriented 3 - Constitutional Vitals: Temp Pulse Resp BP Pulse Ox 98.0 F 72 20 107/52 95 05/29/17 14:32 05/29/17 14:32 05/29/17 14:32 05/29/17 14:32 05/29/17 08:22 General appearance: Present: no acute distress Results - Labs CBC & Chem 7: 05/28/17 04:59 05/29/17 05:09 Labs: Laboratory Last Values WBC 3.6 K/mm3 (4.5-11.0) L 05/28/17 04:59 RBC 3.11 M/mm3 (3.65-5.03) L 05/28/17 04:59 Hgb 9.4 gm/dl (11.8-15.2) L 05/28/17 04:59 Hct 28.0 % (35.5-45.6) L 05/28/17 04:59 MCV 90 fl (84-94) 05/28/17 04:59 MCH 30 pg (28-32) 05/28/17 04:59 MCHC 33 % (32-34) 05/28/17 04:59 RDW 14.9 % (13.2-15.2) 05/28/17 04:59 Plt Count 162 K/mm3 (140-440) 05/28/17 04:59 Lymph % (Auto) 18.9 % (13.4-35.0) 05/26/17 05:31 [place] % (Auto) 15.1 % (0.0-7.3) H 05/26/17 05:31 Eos % (Auto) 9.5 % (0.0-4.3) H 05/26/17 05:31 Baso % (Auto) 1.4 % (0.0-1.8) 05/26/17 05:31 Lymph # 0.7 K/mm3 (1.2-5.4) L 05/26/17 05:31 [place] # 0.6 K/mm3 (0.0-0.8) 05/26/17 05:31 Eos # 0.4 K/mm3 (0.0-0.4) 05/26/17 05:31 Baso # 0.1 K/mm3 (0.0-0.1) 05/26/17 05:31 Seg Neutrophils % 55.1 % (40.0-70.0) 05/26/17 05:31 Seg Neutrophils # 2.1 K/mm3 (1.8-7.7) 05/26/17 05:31 Sodium 137 mmol/L (137-145) 05/29/17 05:09 Potassium 4.0 mmol/L (3.6-5.0) 05/29/17 05:09 Chloride 99.0 mmol/L (98-107) 05/29/17 05:09 Carbon Dioxide 27 mmol/L (22-30) 05/29/17 05:09 Anion Gap 15 mmol/L 05/29/17 05:09 BUN 24 mg/dL (9-20) H 05/29/17 05:09 Creatinine 1.7 mg/dL (0.8-1.5) H 05/29/17 05:09 Estimated GFR 41 ml/min 05/29/17 05:09 BUN/Creatinine Ratio 14 % 05/29/17 05:09 Glucose 184 mg/dL (75-100) H 05/29/17 05:09 POC Glucose 176 (70-105) H 05/29/17 08:31 Calcium 7.4 mg/dL (8.4-10.2) L 05/29/17 05:09 Total Bilirubin 0.30 mg/dL (0.1-1.2) 05/23/17 08:29 AST 29 units/L (5-40) 05/23/17 08:29 ALT 17 units/L (7-56) 05/23/17 08:29 Alkaline Phosphatase 82 units/L (35-129) 05/23/17 08:29 Troponin T 0.081 ng/mL (0.00-0.029) H 05/23/17 08:29 NT-Pro-B Natriuret Pep 98280 pg/mL (0-900) H 05/23/17 08:29 Total Protein 5.9 g/dL (6.3-8.2) L 05/23/17 08:29 Albumin 2.5 g/dL (3.9-5) L 05/23/17 08:29 Albumin/Globulin Ratio 0.7 % 05/23/17 08:29 Triglycerides 77 mg/dL (2-149) 05/23/17 08:29 Cholesterol 136 mg/dL (50-199) 05/23/17 08:29 LDL Cholesterol Direct 69 mg/dL (50-130) 05/23/17 08:29 HDL Cholesterol 52 mg/dL (40-59) 05/23/17 08:29 Cholesterol/HDL Ratio 2.61 % 05/23/17 08:29 Urine Color Yellow (Yellow) 05/25/17 Unknown Urine Turbidity Clear (Clear) 05/25/17 Unknown Urine pH 5.0 (5.0-7.0) 05/25/17 Unknown Ur Specific [place] 1.009 (1.003-1.030) 05/25/17 Unknown Urine Protein 30 mg/dl mg/dL (Negative) 05/25/17 Unknown Urine Glucose (UA) Neg mg/dL (Negative) 05/25/17 Unknown Urine Ketones Neg mg/dL (Negative) 05/25/17 Unknown Urine Blood Neg (Negative) 05/25/17 Unknown Urine Nitrite Neg (Negative) 05/25/17 Unknown Urine Bilirubin Neg (Negative) 05/25/17 Unknown Urine Urobilinogen < 2.0 mg/dL (<2.0) 05/25/17 Unknown Ur Leukocyte Esterase Neg (Negative) 05/25/17 Unknown Urine WBC (Auto) 1.0 /HPF (0.0-6.0) 05/25/17 Unknown Urine RBC (Auto) 3.0 /HPF (0.0-6.0) 05/25/17 Unknown U Epithel Cells (Auto) < 1.0 /HPF (0-13.0) 05/25/17 Unknown Urine Bacteria (Auto) 1+ /HPF (Negative) 05/25/17 Unknown Hyaline Casts 4 /LPF 05/23/17 07:46 Urine Yeast (Budding) Few /HPF 02/11/18 Unknown Urine Eosinophils None seen (None Seen) 05/25/17 Unknown Urine Total Volume 1300 05/26/17 09:23 Urine Creatinine 66.7 mg/dL (0.1-20.0) H 05/25/17 Unknown Ur Total Protein 24 Hr 1040.00 (2-200) H 05/26/17 09:23 Protein/Creatinin Ratio 0.78 05/25/17 Unknown Urine Total Protein 80 mg/dL (5-11.8) H 05/26/17 09:23 AMOS Screen Negative (Negative) 05/24/17 13:16 Proteinase 3 (PR3) Ab <1.0 AI (<1.0) 05/24/17 13:16 Myeloperoxidase Ab <1.0 AI (<1.0) 05/24/17 13:16 Complement C3 73 mg/dL (82-185) L 05/24/17 13:16 Complement C4 21 mg/dL (15-53) 05/24/17 13:16 Hep Bs Antigen Non-reactive (Negative) 05/24/17 13:16 Hepatitis C Antibody Reactive (NonReactive) A 05/24/17 13:16
[2017-05-29] MEDS: PERCOCET 5/325 PO PRN ×2 (16:50→21:50)
[2017-05-30] MEDS: LASIX PO SCH ×2 (05:06→18:43)
[2017-05-30] MEDS: PERCOCET 5/325 PO PRN ×3 (05:06→21:24)
[2017-05-30] MEDS: HEPARIN SUB-Q SCH ×3 (05:07→21:26)
[2017-05-30 06:07] LABS: Calcium 7.6 mg/dL (8.4-10.2)
--- NOTE | 2017-05-30 08:34 | Progress Note ---
Assessment and Plan Impression: * DEBO on stage III CKD - SCr 1.6mg/dL in 12/29 --Low C3 noted, negative AMOS/ANCA * Anasarca * Hyperkalemia * HTN * Cardiomyopathy--diastolic and systolic--ef 40% * Pulmonary hypertension * Type II DM * Chronic hep C * Hypoalbumemia without nephrotic syndrome * Probable sleep apnea Plan: * Continue aggressive po diuresis--lasix/zaroxolyn * HD initiated on 05/27 for UF and volume control - he is s/p daily HD x 3 * Hemodialysis again today for additional UF * Reassess need for HD tomorrow * 24h urine CrCl pending * Renal/low k diet * Daily labs * Kayexalate prn for hyperkalemia * Fluid restriction * ? CPAP at night * No plans for outpatient HD at this time Subjective Date of service: 05/30/17 Principal diagnosis: hyperkalemia, ckd 3 Interval history: Patient continues to complain of scrotal edema and leg swelling. He denies SOB. Objective - Vital Signs Vital signs: Vital Signs - 12hr 05/29/17 05/29/17 05/29/17 21:51 22:00 23:47 Temperature 98.8 F Pulse Rate 88 82 79 Respiratory 18 Rate Blood Pressure 155/82 113/59 O2 Sat by Pulse 94 Oximetry 05/30/17 05/30/17 05:05 05:06 Temperature 97.4 F L Pulse Rate 78 Respiratory 0 L Rate Blood Pressure 141/77 O2 Sat by Pulse 97 Oximetry - General Appearance General appearance: well-developed, well-nourished EENT: ATNC Respiratory: Present: Clear to Ascultation Cardiology: regular, S1S2 Gastrointestinal: normoactive bowel sounds Integumentary: no rash, warm and dry Neurologic: no focal deficit Musculoskeletal: other (2+ pitting edema to thighs) Psychiatric: mood/affect appropriate, cooperative - Lab 05/28/17 04:59 05/30/17 05:17 Most recent lab results Calcium 7.6 mg/dL (8.4-10.2) L 05/30/17 05:17 Urine Creatinine 66.7 mg/dL (0.1-20.0) H 05/25/17 Unknown Ur Total Protein 24 Hr 1040.00 (2-200) H 05/26/17 09:23 Urine Total Protein 80 mg/dL (5-11.8) H 05/26/17 09:23
[2017-05-30] MEDS: BABY ASPIRIN PO SCH (10:08)
[2017-05-30] MEDS: APRESOLINE PO SCH ×3 (10:08→21:24)
[2017-05-30] MEDS: COREG PO SCH ×2 (10:08→21:25)
[2017-05-30] MEDS: celeXA PO SCH (10:08)
[2017-05-30] MEDS: LYRICA PO SCH ×2 (10:09→21:25)
[2017-05-30] MEDS: ZAROXOLYN PO SCH (10:09)
[2017-05-30] MEDS: SODIUM BICARBONATE PO SCH ×2 (10:09→21:24)
[2017-05-30] MEDS ORDERED: NACL 0.9% 100 ML IV PRN (13:32)
--- NOTE | 2017-05-30 14:55 | Progress Note ---
Assessment and Plan Assessment and plan: 62-year-old -[place] male with h/o CKD, DM, CHF presents with a two- week history of present worsening swelling of the legs, scrotum and abdomen and some mild shortness of breath. /Hyperkalemia, with Potassium increased to 6.0. - K level 5.0 today - s/p multiple round of kayexalate with calcium gluconate, insulin with D50, sodium bicarbonate to control K - started on oral sodium bicarbonate - monitor BMP, nephrology consulted - cont on renal diet /ARF/CKD 3, due to vasomotor nephropathy, poa - cont to Monitor renal function, Avoid nephrotoxins. - consulted nephrology, volume status not improving with diuresis - plan to start HD short term to control volume status and electrolytes /Acute systolic and diastolic heart failure - 2d echo showed EF 45-50% and grade 2 DD, his symptom might be also precipitated from volume overload and declining renaL FUNCTION - CXR showed mild CHF and left pleural effusion - monitor to telemetry bed - will cont on Aspirin, statin, and Lasix IV 80 mg BID - consulted cardiology - daily weights, monitor in's and O's /Hypertensive urgency. - Given hydralazine iv. started on oral Coreg, hydralazine and lasix /Diabetes mellitus type 2. - We cont on SSI /Hyperlipidemia. - On statin. /Hepatitis C - Monitor liver function /Polysubstance abuse with Marijuana, Cocaine - Counseled for cessation /Neuropathy. - Continue Lyrica from home. /Scrotal swelling - testicular US showed nonspecific swelling of the scrotum - cont lasix for now, monitor clinically DVT prophylaxis with Heparin subcut. Full code status 05/27/2017: Hemodialysis to started today after Vas-Cath History Interval history: Patient was seen and examined. Follow-up on current diagnosis. Overnight uneventful. Patient denies any chest pain, shortness breath, nausea/vomiting or severe headaches. Imaging, nursing note, chart, labs and old chart reviewed. Discussed with patient. Hospitalist Physical - Physical exam Narrative exam: GENERAL: well-developed and well-nourished AAM lying on bed appeared to be in no discomfort. HEENT: Normocephalic. Atraumatic. No conjunctival congestion or icterus. Patient has moist mucous membranes. NECK: Supple. Trachea midline. CHEST/LUNGS: Clear to auscultated bilaterally, breathing nonlabored. No wheezes crackles or rhonchi. HEART/CARDIOVASCULAR: Regular in rate and rhythm. S1 and S2 positive. ABDOMEN: Abdomen is soft, nontender, distended, Patient has normal bowel sounds. genitourinary: scrotal and penile swelling, no skin color change SKIN: There is no rash. Warm and dry. NEURO: No new focal motor deficit. Follows command. MUSCULOSKELETAL: No joint effusion or tenderness. EXTRIMITY: + pedal edema, no cyanosis or clubbing. PSYCH: Cooperative. Oriented 3 - Constitutional Vitals: Temp Pulse Resp BP Pulse Ox 97.8 F 76 20 125/72 94 05/30/17 13:14 05/30/17 13:14 05/30/17 13:14 05/30/17 13:14 05/30/17 13:14 General appearance: Present: no acute distress Results - Labs CBC & Chem 7: 05/28/17 04:59 05/30/17 05:17 Labs: Laboratory Last Values WBC 3.6 K/mm3 (4.5-11.0) L 05/28/17 04:59 RBC 3.11 M/mm3 (3.65-5.03) L 05/28/17 04:59 Hgb 9.4 gm/dl (11.8-15.2) L 05/28/17 04:59 Hct 28.0 % (35.5-45.6) L 05/28/17 04:59 MCV 90 fl (84-94) 05/28/17 04:59 MCH 30 pg (28-32) 05/28/17 04:59 MCHC 33 % (32-34) 05/28/17 04:59 RDW 14.9 % (13.2-15.2) 05/28/17 04:59 Plt Count 162 K/mm3 (140-440) 05/28/17 04:59 Lymph % (Auto) 18.9 % (13.4-35.0) 05/26/17 05:31 [place] % (Auto) 15.1 % (0.0-7.3) H 05/26/17 05:31 Eos % (Auto) 9.5 % (0.0-4.3) H 05/26/17 05:31 Baso % (Auto) 1.4 % (0.0-1.8) 05/26/17 05:31 Lymph # 0.7 K/mm3 (1.2-5.4) L 05/26/17 05:31 [place] # 0.6 K/mm3 (0.0-0.8) 05/26/17 05:31 Eos # 0.4 K/mm3 (0.0-0.4) 05/26/17 05:31 Baso # 0.1 K/mm3 (0.0-0.1) 05/26/17 05:31 Seg Neutrophils % 55.1 % (40.0-70.0) 05/26/17 05:31 Seg Neutrophils # 2.1 K/mm3 (1.8-7.7) 05/26/17 05:31 Sodium 138 mmol/L (137-145) 05/30/17 05:17 Potassium 3.9 mmol/L (3.6-5.0) 05/30/17 05:17 Chloride 98.1 mmol/L (98-107) 05/30/17 05:17 Carbon Dioxide 30 mmol/L (22-30) 05/30/17 05:17 Anion Gap 14 mmol/L 05/30/17 05:17 BUN 19 mg/dL (9-20) 05/30/17 05:17 Creatinine 1.9 mg/dL (0.8-1.5) H 05/30/17 05:17 Estimated GFR 36 ml/min 05/30/17 05:17 BUN/Creatinine Ratio 10 % 05/30/17 05:17 Glucose 157 mg/dL (75-100) H 05/30/17 05:17 POC Glucose 280 (70-105) H 05/30/17 11:11 Calcium 7.6 mg/dL (8.4-10.2) L 05/30/17 05:17 Total Bilirubin 0.30 mg/dL (0.1-1.2) 05/23/17 08:29 AST 29 units/L (5-40) 05/23/17 08:29 ALT 17 units/L (7-56) 05/23/17 08:29 Alkaline Phosphatase 82 units/L (35-129) 05/23/17 08:29 Troponin T 0.081 ng/mL (0.00-0.029) H 02/09/18 08:29 NT-Pro-B Natriuret Pep 42278 pg/mL (0-900) H 05/23/17 08:29 Total Protein 5.9 g/dL (6.3-8.2) L 05/23/17 08:29 Albumin 2.5 g/dL (3.9-5) L 05/23/17 08:29 Albumin/Globulin Ratio 0.7 % 05/23/17 08:29 Triglycerides 77 mg/dL (2-149) 05/23/17 08:29 Cholesterol 136 mg/dL (50-199) 05/23/17 08:29 LDL Cholesterol Direct 69 mg/dL (50-130) 05/23/17 08:29 HDL Cholesterol 52 mg/dL (40-59) 05/23/17 08:29 Cholesterol/HDL Ratio 2.61 % 05/23/17 08:29 Urine Color Yellow (Yellow) 05/25/17 Unknown Urine Turbidity Clear (Clear) 05/25/17 Unknown Urine pH 5.0 (5.0-7.0) 05/25/17 Unknown Ur Specific [place] 1.009 (1.003-1.030) 05/25/17 Unknown Urine Protein 30 mg/dl mg/dL (Negative) 05/25/17 Unknown Urine Glucose (UA) Neg mg/dL (Negative) 05/25/17 Unknown Urine Ketones Neg mg/dL (Negative) 05/25/17 Unknown Urine Blood Neg (Negative) 05/25/17 Unknown Urine Nitrite Neg (Negative) 05/25/17 Unknown Urine Bilirubin Neg (Negative) 05/25/17 Unknown Urine Urobilinogen < 2.0 mg/dL (<2.0) 05/25/17 Unknown Ur Leukocyte Esterase Neg (Negative) 05/25/17 Unknown Urine WBC (Auto) 1.0 /HPF (0.0-6.0) 05/25/17 Unknown Urine RBC (Auto) 3.0 /HPF (0.0-6.0) 05/25/17 Unknown U Epithel Cells (Auto) < 1.0 /HPF (0-13.0) 05/25/17 Unknown Urine Bacteria (Auto) 1+ /HPF (Negative) 05/25/17 Unknown Hyaline Casts 4 /LPF 05/23/17 07:46 Urine Yeast (Budding) Few /HPF 05/25/17 Unknown Urine Eosinophils None seen (None Seen) 05/25/17 Unknown Urine Total Volume 1300 05/26/17 09:23 Urine Creatinine 66.7 mg/dL (0.1-20.0) H 05/25/17 Unknown Ur Total Protein 24 Hr 1040.00 (2-200) H 05/26/17 09:23 Protein/Creatinin Ratio 0.78 05/25/17 Unknown Urine Total Protein 80 mg/dL (5-11.8) H 05/26/17 09:23 AMOS Screen Negative (Negative) 05/24/17 13:16 Proteinase 3 (PR3) Ab <1.0 AI (<1.0) 05/24/17 13:16 Myeloperoxidase Ab <1.0 AI (<1.0) 05/24/17 13:16 Complement C3 73 mg/dL (82-185) L 05/24/17 13:16 Complement C4 21 mg/dL (15-53) 05/24/17 13:16 Hep Bs Antigen Non-reactive (Negative) 05/24/17 13:16 Hepatitis C Antibody Reactive (NonReactive) A 05/24/17 13:16
[2017-05-30] MEDS ORDERED: NACL 0.9 (PRIMING MACHINE ONLY DIALYSIS) MC ONE (16:49)
[2017-05-30] MEDS: HEPARIN IV PRN (16:57)
[2017-05-31 04:56] LABS: Calcium 7.6 mg/dL (8.4-10.2)
[2017-05-31] MEDS: HEPARIN SUB-Q SCH ×3 (06:12→22:15)
[2017-05-31] MEDS: PERCOCET 5/325 PO PRN ×3 (06:13→22:12)
[2017-05-31] MEDS: LASIX PO SCH (06:13)
--- NOTE | 2017-05-31 09:42 | Progress Note ---
Subjective Principal diagnosis: hyperkalemia, ckd 3 Interval history: Patient was seen today for follow-up, on many renal related issues, initiated on renal replacement therapy Patient currently denies having any symptoms of chest pain pressure shortness of breath Better aware about renal related issues Interdisciplinary notes were reviewed Vitals labs intake and output medications were reviewed from today Allergies: Reviewed Social history: Reviewed Family history: Reviewed Physical examination HEENT: Oral mucosa moist no pharyngeal erythema Neck: Supple no JVD Chest: Clear to auscultation no crackles rales or wheezes Heart: Regular rate and rhythm S1-S2 heard no S3-S4 Abdomen: Soft nontender no renal bruit no CVA tenderness no suprapubic fullness Extremity: 12 edema dry skin no peripheral cyanosis pulses palpable Neurological: Alert awake Musculoskeletal: No joint effusion noted Assessment and plan Acute kidney injury with underlying chronic and is in the patient who presented with anasarca-like picture initiated on renal replacement therapy with significant improvement in edema anasarca-like picture, patient will need hemodialysis treatment today as well as ultrafiltration as tolerated plan of care was discussed with patient Current dialysis axis is a central venous catheter which has been working well Anemia: To monitor and follow, currently on erythropoietin 10,000 units with hemodialysis Lyrica dose needs to be reduced to 75 mg once a day for renal failure Currently on diuretics with Zaroxolyn and furosemide Hypertension: To monitor and follow currently on carvedilol Generalized edema anasarca: Much improved Adequately counseled and educated regarding all the renal-related issues Labs were discussed with patient explained and simple [place]ian does have good understanding off renal related issues, Will continue to follow and make recommendation from renal standpoint Objective - Vital Signs Vital signs: Vital Signs - 12hr 05/30/17 05/31/17 05/31/17 22:00 00:24 04:58 Temperature 97.6 F 98.2 F Pulse Rate 79 74 72 Respiratory 18 18 Rate Blood Pressure 121/68 123/64 [Left] O2 Sat by Pulse 94 94 Oximetry 05/31/17 05/31/17 06:13 08:48 Temperature 97.8 F Pulse Rate 74 Respiratory 20 20 Rate Blood Pressure 143/87 [Left] O2 Sat by Pulse 94 Oximetry - Lab 05/28/17 04:59 05/31/17 04:16 Most recent lab results Calcium 7.6 mg/dL (8.4-10.2) L 05/31/17 04:16 Urine Creatinine 66.7 mg/dL (0.1-20.0) H 05/25/17 Unknown Ur Total Protein 24 Hr 1040.00 (2-200) H 05/26/17 09:23 Urine Total Protein 80 mg/dL (5-11.8) H 05/26/17 09:23
[2017-05-31] MEDS: BABY ASPIRIN PO SCH (10:14)
[2017-05-31] MEDS: LYRICA PO SCH (10:14)
[2017-05-31] MEDS: ZAROXOLYN PO SCH (10:14)
[2017-05-31] MEDS: celeXA PO SCH (10:14)
[2017-05-31] MEDS: SODIUM BICARBONATE PO SCH (10:14)
--- NOTE | 2017-05-31 10:41 | Progress Note ---
Assessment and Plan Assessment and plan: 62-year-old -[place] male with h/o CKD, DM, CHF presents with a two- week history of present worsening swelling of the legs, scrotum and abdomen and some mild shortness of breath. /Hyperkalemia, with Potassium increased to 6.0. - K level 5.0 today - s/p multiple round of kayexalate with calcium gluconate, insulin with D50, sodium bicarbonate to control K - started on oral sodium bicarbonate - monitor BMP, nephrology consulted - cont on renal diet /ARF/CKD 3, due to vasomotor nephropathy, poa - cont to Monitor renal function, Avoid nephrotoxins. - consulted nephrology, volume status not improving with diuresis - plan to start HD short term to control volume status and electrolytes /Acute systolic and diastolic heart failure - 2d echo showed EF 45-50% and grade 2 DD, his symptom might be also precipitated from volume overload and declining renaL FUNCTION - CXR showed mild CHF and left pleural effusion - monitor to telemetry bed - will cont on Aspirin, statin, and Lasix IV 80 mg BID - consulted cardiology - daily weights, monitor in's and O's /Hypertensive urgency. - Given hydralazine iv. started on oral Coreg, hydralazine and lasix /Diabetes mellitus type 2. - We cont on SSI /Hyperlipidemia. - On statin. /Hepatitis C - Monitor liver function /Polysubstance abuse with Marijuana, Cocaine - Counseled for cessation /Neuropathy. - Continue Lyrica from home. /Scrotal swelling - testicular US showed nonspecific swelling of the scrotum - cont lasix for now, monitor clinically DVT prophylaxis with Heparin subcut. Full code status 05/27/2017: Hemodialysis to started today after Vas-Cath d/w dr. Pacheco and no outpatient hd needed at this time but renal will access daily, Dr. Franklin saw pt today and ordered hemodialysis today History Interval history: Patient was seen and examined. Follow-up on current diagnosis. Overnight uneventful. Patient denies any chest pain, shortness breath, nausea/vomiting or severe headaches. Imaging, nursing note, chart, labs and old chart reviewed. Discussed with patient. Hospitalist Physical - Physical exam Narrative exam: GENERAL: well-developed and well-nourished AAM lying on bed appeared to be in no discomfort. HEENT: Normocephalic. Atraumatic. No conjunctival congestion or icterus. Patient has moist mucous membranes. NECK: Supple. Trachea midline. CHEST/LUNGS: Clear to auscultated bilaterally, breathing nonlabored. No wheezes crackles or rhonchi. HEART/CARDIOVASCULAR: Regular in rate and rhythm. S1 and S2 positive. ABDOMEN: Abdomen is soft, nontender, distended, Patient has normal bowel sounds. genitourinary: scrotal and penile swelling, no skin color change SKIN: There is no rash. Warm and dry. NEURO: No new focal motor deficit. Follows command. MUSCULOSKELETAL: No joint effusion or tenderness. EXTRIMITY: + pedal edema, no cyanosis or clubbing. PSYCH: Cooperative. Oriented 3 - Constitutional Vitals: Temp Pulse Resp BP Pulse Ox 97.8 F 74 20 143/87 94 05/31/17 08:48 05/31/17 08:48 05/31/17 08:48 05/31/17 08:48 05/31/17 08:48 General appearance: Present: no acute distress Results - Labs CBC & Chem 7: 05/28/17 04:59 05/31/17 04:16 Labs: Laboratory Last Values WBC 3.6 K/mm3 (4.5-11.0) L 05/28/17 04:59 RBC 3.11 M/mm3 (3.65-5.03) L 05/28/17 04:59 Hgb 9.4 gm/dl (11.8-15.2) L 05/28/17 04:59 Hct 28.0 % (35.5-45.6) L 05/28/17 04:59 MCV 90 fl (84-94) 05/28/17 04:59 MCH 30 pg (28-32) 05/28/17 04:59 MCHC 33 % (32-34) 05/28/17 04:59 RDW 14.9 % (13.2-15.2) 05/28/17 04:59 Plt Count 162 K/mm3 (140-440) 05/28/17 04:59 Lymph % (Auto) 18.9 % (13.4-35.0) 05/26/17 05:31 [place] % (Auto) 15.1 % (0.0-7.3) H 05/26/17 05:31 Eos % (Auto) 9.5 % (0.0-4.3) H 05/26/17 05:31 Baso % (Auto) 1.4 % (0.0-1.8) 05/26/17 05:31 Lymph # 0.7 K/mm3 (1.2-5.4) L 05/26/17 05:31 [place] # 0.6 K/mm3 (0.0-0.8) 05/26/17 05:31 Eos # 0.4 K/mm3 (0.0-0.4) 05/26/17 05:31 Baso # 0.1 K/mm3 (0.0-0.1) 05/26/17 05:31 Seg Neutrophils % 55.1 % (40.0-70.0) 05/26/17 05:31 Seg Neutrophils # 2.1 K/mm3 (1.8-7.7) 05/26/17 05:31 Sodium 138 mmol/L (137-145) 05/31/17 04:16 Potassium 4.0 mmol/L (3.6-5.0) 05/31/17 04:16 Chloride 98.3 mmol/L (98-107) 05/31/17 04:16 Carbon Dioxide 29 mmol/L (22-30) 05/31/17 04:16 Anion Gap 15 mmol/L 05/31/17 04:16 BUN 14 mg/dL (9-20) 05/31/17 04:16 Creatinine 1.8 mg/dL (0.8-1.5) H 05/31/17 04:16 Estimated GFR 39 ml/min 05/31/17 04:16 BUN/Creatinine Ratio 8 % 05/31/17 04:16 Glucose 205 mg/dL (75-100) H 05/31/17 04:16 POC Glucose 205 (70-105) H 05/30/17 21:11 Calcium 7.6 mg/dL (8.4-10.2) L 05/31/17 04:16 Total Bilirubin 0.30 mg/dL (0.1-1.2) 05/23/17 08:29 AST 29 units/L (5-40) 05/23/17 08:29 ALT 17 units/L (7-56) 05/23/17 08:29 Alkaline Phosphatase 82 units/L (35-129) 05/23/17 08:29 Troponin T 0.081 ng/mL (0.00-0.029) H 05/23/17 08:29 NT-Pro-B Natriuret Pep 16524 pg/mL (0-900) H 05/23/17 08:29 Total Protein 5.9 g/dL (6.3-8.2) L 05/23/17 08:29 Albumin 2.5 g/dL (3.9-5) L 05/23/17 08:29 Albumin/Globulin Ratio 0.7 % 05/23/17 08:29 Triglycerides 77 mg/dL (2-149) 05/23/17 08:29 Cholesterol 136 mg/dL (50-199) 05/23/17 08:29 LDL Cholesterol Direct 69 mg/dL (50-130) 05/23/17 08:29 HDL Cholesterol 52 mg/dL (40-59) 05/23/17 08:29 Cholesterol/HDL Ratio 2.61 % 05/23/17 08:29 Urine Color Yellow (Yellow) 05/25/17 Unknown Urine Turbidity Clear (Clear) 05/25/17 Unknown Urine pH 5.0 (5.0-7.0) 05/25/17 Unknown Ur Specific [place] 1.009 (1.003-1.030) 05/25/17 Unknown Urine Protein 30 mg/dl mg/dL (Negative) 05/25/17 Unknown Urine Glucose (UA) Neg mg/dL (Negative) 05/25/17 Unknown Urine Ketones Neg mg/dL (Negative) 05/25/17 Unknown Urine Blood Neg (Negative) 05/25/17 Unknown Urine Nitrite Neg (Negative) 05/25/17 Unknown Urine Bilirubin Neg (Negative) 05/25/17 Unknown Urine Urobilinogen < 2.0 mg/dL (<2.0) 05/25/17 Unknown Ur Leukocyte Esterase Neg (Negative) 05/25/17 Unknown Urine WBC (Auto) 1.0 /HPF (0.0-6.0) 05/25/17 Unknown Urine RBC (Auto) 3.0 /HPF (0.0-6.0) 05/25/17 Unknown U Epithel Cells (Auto) < 1.0 /HPF (0-13.0) 05/25/17 Unknown Urine Bacteria (Auto) 1+ /HPF (Negative) 05/25/17 Unknown Hyaline Casts 4 /LPF 05/23/17 07:46 Urine Yeast (Budding) Few /HPF 05/25/17 Unknown Urine Eosinophils None seen (None Seen) 05/25/17 Unknown Urine Total Volume 1300 05/26/17 09:23 Urine Creatinine 66.7 mg/dL (0.1-20.0) H 05/25/17 Unknown Ur Total Protein 24 Hr 1040.00 (2-200) H 05/26/17 09:23 Protein/Creatinin Ratio 0.78 05/25/17 Unknown Urine Total Protein 80 mg/dL (5-11.8) H 05/26/17 09:23 AMOS Screen Negative (Negative) 05/24/17 13:16 Proteinase 3 (PR3) Ab <1.0 AI (<1.0) 05/24/17 13:16 Myeloperoxidase Ab <1.0 AI (<1.0) 05/24/17 13:16 Complement C3 73 mg/dL (82-185) L 05/24/17 13:16 Complement C4 21 mg/dL (15-53) 05/24/17 13:16 Hep Bs Antigen Non-reactive (Negative) 05/24/17 13:16 Hepatitis C Antibody Reactive (NonReactive) A 05/24/17 13:16
[2017-05-31] MEDS: COREG PO SCH ×2 (11:31→22:13)
[2017-05-31] MEDS: APRESOLINE PO SCH ×2 (11:31→22:14)
[2017-05-31] MEDS ORDERED: NACL 0.9% 100 ML IV PRN (14:10)
[2017-05-31] MEDS ORDERED: NACL 0.9 (PRIMING MACHINE ONLY DIALYSIS) MC ONE (19:04)
[2017-05-31] MEDS: PROCRIT IV PRN (19:22)
[2017-06-01] MEDS: HEPARIN SUB-Q SCH ×3 (06:16→22:48)
[2017-06-01] MEDS: LASIX PO SCH ×2 (06:16→18:49)
[2017-06-01] MEDS: APRESOLINE PO SCH ×3 (08:00→20:00)
--- NOTE | 2017-06-01 09:41 | Progress Note ---
Subjective Principal diagnosis: hyperkalemia, ckd 3 Interval history: Patient was seen today for follow-up, on many renal related issues, initiated on renal replacement therapy Patient currently denies having any symptoms of chest pain pressure shortness of breath has had hemodialysis treatment yesterday after which she felt much better Vitals labs intake and output medications were reviewed from today Allergies: Reviewed Social history: Reviewed Family history: Reviewed Physical examination HEENT: Oral mucosa moist no pharyngeal erythema Neck: Supple no JVD Chest: Clear to auscultation no crackles rales or wheezes Heart: Regular rate and rhythm S1-S2 heard no S3-S4 Abdomen: Soft nontender no renal bruit no CVA tenderness no suprapubic fullness Extremity: 12 edema dry skin no peripheral cyanosis pulses palpable Neurological: Alert awake Musculoskeletal: No joint effusion noted Assessment and plan acute kidney injury with underlying chronic kidney disease: Patient presented with generalized swelling and scrotal swelling anasarca-like picture is currently doing much better Received last treatment on Friday, right now we'll place a dialysis on hold continue to diurese with Zaroxolyn as well as furosemide fluid restriction and sodium restriction 24-hour urine for protein creatinine and creatinine clearance to be done for now depending on the results can be considered for continuation of renal replacement therapy or discontinuation of permacath to follow-up in the office 24 urine collection did reveal less than 1.5 g protein in the urine Adequately counseled about diet and lifestyle changes sodium restriction fluid restriction On erythropoietin for anemia 10,000 units with hemodialysis Dose of pregabalin was reduced due to renal failure Monitor for recovery of renal function Dialysis may need to be placed on hold tomorrow Labs were discussed with patient explained and simple Stateless does have good understanding off renal related issues, Will continue to follow and make recommendation from renal standpoint Objective - Vital Signs Vital signs: Vital Signs - 12hr 05/31/17 05/31/17 06/01/17 22:00 22:13 01:23 Temperature 98.5 F Pulse Rate 77 84 79 Respiratory 20 Rate Blood Pressure 170/100 137/81 O2 Sat by Pulse 96 92 Oximetry 06/01/17 06:09 Temperature 97.5 F L Pulse Rate 76 Respiratory 20 Rate Blood Pressure 138/79 O2 Sat by Pulse 95 Oximetry - Lab 05/28/17 04:59 05/31/17 04:16 Most recent lab results Calcium 7.6 mg/dL (8.4-10.2) L 05/31/17 04:16 Urine Creatinine 66.7 mg/dL (0.1-20.0) H 05/25/17 Unknown Ur Total Protein 24 Hr 1040.00 (2-200) H 05/26/17 09:23 Urine Total Protein 80 mg/dL (5-11.8) H 05/26/17 09:23
[2017-06-01] MEDS: PERCOCET 5/325 PO PRN (11:31)
[2017-06-01] MEDS: celeXA PO SCH (11:33)
[2017-06-01] MEDS: BABY ASPIRIN PO SCH (11:33)
[2017-06-01] MEDS: ZAROXOLYN PO SCH (11:34)
[2017-06-01] MEDS: LYRICA PO SCH (11:34)
[2017-06-01] MEDS: COREG PO SCH ×2 (11:34→22:48)
--- NOTE | 2017-06-01 14:57 | Progress Note ---
Assessment and Plan Assessment and plan: 62-year-old -N[place]alese male with h/o CKD, DM, CHF presents with a two- week history of present worsening swelling of the legs, scrotum and abdomen and some mild shortness of breath. /Hyperkalemia, with Potassium increased to 6.0. - K level 5.0 today - s/p multiple round of kayexalate with calcium gluconate, insulin with D50, sodium bicarbonate to control K - started on oral sodium bicarbonate - monitor BMP, nephrology consulted - cont on renal diet /ARF/CKD 3, due to vasomotor nephropathy, poa - cont to Monitor renal function, Avoid nephrotoxins. - consulted nephrology, volume status not improving with diuresis - plan to start HD short term to control volume status and electrolytes /Acute systolic and diastolic heart failure - 2d echo showed EF 45-50% and grade 2 DD, his symptom might be also precipitated from volume overload and declining renaL FUNCTION - CXR showed mild CHF and left pleural effusion - monitor to telemetry bed - will cont on Aspirin, statin, and Lasix IV 80 mg BID - consulted cardiology - daily weights, monitor in's and O's /Hypertensive urgency. - Given hydralazine iv. started on oral Coreg, hydralazine and lasix /Diabetes mellitus type 2. - We cont on SSI /Hyperlipidemia. - On statin. /Hepatitis C - Monitor liver function /Polysubstance abuse with Marijuana, Cocaine - Counseled for cessation /Neuropathy. - Continue Lyrica from home. /Scrotal swelling - testicular US showed nonspecific swelling of the scrotum - cont lasix for now, monitor clinically DVT prophylaxis with Heparin subcut. Full code status 05/27/2017: Hemodialysis to started today after Vas-Cath d/w dr. Pacheco and no outpatient hd needed at this time but renal will access daily, Dr. Franklin saw pt today and ordered hemodialysis yesterday. History Interval history: Patient was seen and examined. Follow-up on current diagnosis. Overnight uneventful. Patient denies any chest pain, shortness breath, nausea/vomiting or severe headaches. Imaging, nursing note, chart, labs and old chart reviewed. Discussed with patient. Hospitalist Physical - Physical exam Narrative exam: GENERAL: well-developed and well-nourished AAM lying on bed appeared to be in no discomfort. HEENT: Normocephalic. Atraumatic. No conjunctival congestion or icterus. Patient has moist mucous membranes. NECK: Supple. Trachea midline. CHEST/LUNGS: Clear to auscultated bilaterally, breathing nonlabored. No wheezes crackles or rhonchi. HEART/CARDIOVASCULAR: Regular in rate and rhythm. S1 and S2 positive. ABDOMEN: Abdomen is soft, nontender, distended, Patient has normal bowel sounds. genitourinary: scrotal and penile swelling, no skin color change SKIN: There is no rash. Warm and dry. NEURO: No new focal motor deficit. Follows command. MUSCULOSKELETAL: No joint effusion or tenderness. EXTRIMITY: + pedal edema, no cyanosis or clubbing. PSYCH: Cooperative. Oriented 3 - Constitutional Vitals: Temp Pulse Resp BP Pulse Ox 98.4 F 76 20 143/89 95 06/01/17 14:38 06/01/17 14:38 06/01/17 14:38 06/01/17 14:38 06/01/17 14:38 General appearance: Present: no acute distress Results - Labs CBC & Chem 7: 05/28/17 04:59 05/31/17 04:16 Labs: Laboratory Last Values WBC 3.6 K/mm3 (4.5-11.0) L 05/28/17 04:59 RBC 3.11 M/mm3 (3.65-5.03) L 05/28/17 04:59 Hgb 9.4 gm/dl (11.8-15.2) L 05/28/17 04:59 Hct 28.0 % (35.5-45.6) L 05/28/17 04:59 MCV 90 fl (84-94) 05/28/17 04:59 MCH 30 pg (28-32) 05/28/17 04:59 MCHC 33 % (32-34) 05/28/17 04:59 RDW 14.9 % (13.2-15.2) 05/28/17 04:59 Plt Count 162 K/mm3 (140-440) 05/28/17 04:59 Lymph % (Auto) 18.9 % (13.4-35.0) 05/26/17 05:31 [place] % (Auto) 15.1 % (0.0-7.3) H 05/26/17 05:31 Eos % (Auto) 9.5 % (0.0-4.3) H 05/26/17 05:31 Baso % (Auto) 1.4 % (0.0-1.8) 05/26/17 05:31 Lymph # 0.7 K/mm3 (1.2-5.4) L 05/26/17 05:31 [place] # 0.6 K/mm3 (0.0-0.8) 05/26/17 05:31 Eos # 0.4 K/mm3 (0.0-0.4) 05/26/17 05:31 Baso # 0.1 K/mm3 (0.0-0.1) 05/26/17 05:31 Seg Neutrophils % 55.1 % (40.0-70.0) 05/26/17 05:31 Seg Neutrophils # 2.1 K/mm3 (1.8-7.7) 05/26/17 05:31 Sodium 138 mmol/L (137-145) 05/31/17 04:16 Potassium 4.0 mmol/L (3.6-5.0) 05/31/17 04:16 Chloride 98.3 mmol/L (98-107) 05/31/17 04:16 Carbon Dioxide 29 mmol/L (22-30) 05/31/17 04:16 Anion Gap 15 mmol/L 05/31/17 04:16 BUN 14 mg/dL (9-20) 05/31/17 04:16 Creatinine 1.8 mg/dL (0.8-1.5) H 05/31/17 04:16 Estimated GFR 39 ml/min 05/31/17 04:16 BUN/Creatinine Ratio 8 % 05/31/17 04:16 Glucose 205 mg/dL (75-100) H 05/31/17 04:16 POC Glucose 212 (70-105) H 06/01/17 08:16 Calcium 7.6 mg/dL (8.4-10.2) L 05/31/17 04:16 Total Bilirubin 0.30 mg/dL (0.1-1.2) 05/23/17 08:29 AST 29 units/L (5-40) 05/23/17 08:29 ALT 17 units/L (7-56) 05/23/17 08:29 Alkaline Phosphatase 82 units/L (35-129) 05/23/17 08:29 Troponin T 0.081 ng/mL (0.00-0.029) H 05/23/17 08:29 NT-Pro-B Natriuret Pep 88285 pg/mL (0-900) H 05/23/17 08:29 Total Protein 5.9 g/dL (6.3-8.2) L 05/23/17 08:29 Albumin 2.5 g/dL (3.9-5) L 05/23/17 08:29 Albumin/Globulin Ratio 0.7 % 05/23/17 08:29 Triglycerides 77 mg/dL (2-149) 05/23/17 08:29 Cholesterol 136 mg/dL (50-199) 05/23/17 08:29 LDL Cholesterol Direct 69 mg/dL (50-130) 05/23/17 08:29 HDL Cholesterol 52 mg/dL (40-59) 05/23/17 08:29 Cholesterol/HDL Ratio 2.61 % 05/23/17 08:29 Urine Color Yellow (Yellow) 05/25/17 Unknown Urine Turbidity Clear (Clear) 05/25/17 Unknown Urine pH 5.0 (5.0-7.0) 05/25/17 Unknown Ur Specific [place] 1.009 (1.003-1.030) 05/25/17 Unknown Urine Protein 30 mg/dl mg/dL (Negative) 05/25/17 Unknown Urine Glucose (UA) Neg mg/dL (Negative) 05/25/17 Unknown Urine Ketones Neg mg/dL (Negative) 05/25/17 Unknown Urine Blood Neg (Negative) 05/25/17 Unknown Urine Nitrite Neg (Negative) 05/25/17 Unknown Urine Bilirubin Neg (Negative) 05/25/17 Unknown Urine Urobilinogen < 2.0 mg/dL (<2.0) 05/25/17 Unknown Ur Leukocyte Esterase Neg (Negative) 05/25/17 Unknown Urine WBC (Auto) 1.0 /HPF (0.0-6.0) 05/25/17 Unknown Urine RBC (Auto) 3.0 /HPF (0.0-6.0) 05/25/17 Unknown U Epithel Cells (Auto) < 1.0 /HPF (0-13.0) 05/25/17 Unknown Urine Bacteria (Auto) 1+ /HPF (Negative) 05/25/17 Unknown Hyaline Casts 4 /LPF 05/23/17 07:46 Urine Yeast (Budding) Few /HPF 05/25/17 Unknown Urine Eosinophils None seen (None Seen) 05/25/17 Unknown Urine Total Volume 1300 05/26/17 09:23 Urine Creatinine 66.7 mg/dL (0.1-20.0) H 05/25/17 Unknown Ur Total Protein 24 Hr 1040.00 (2-200) H 05/26/17 09:23 Protein/Creatinin Ratio 0.78 05/25/17 Unknown Urine Total Protein 80 mg/dL (5-11.8) H 05/26/17 09:23 AMOS Screen Negative (Negative) 05/24/17 13:16 Proteinase 3 (PR3) Ab <1.0 AI (<1.0) 05/24/17 13:16 Myeloperoxidase Ab <1.0 AI (<1.0) 05/24/17 13:16 Complement C3 73 mg/dL (82-185) L 05/24/17 13:16 Complement C4 21 mg/dL (15-53) 05/24/17 13:16 Hep Bs Antigen Non-reactive (Negative) 05/24/17 13:16 Hepatitis C Antibody Reactive (NonReactive) A 05/24/17 13:16
[2017-06-02] MEDS: LASIX PO SCH ×2 (06:17→19:28)
[2017-06-02] MEDS: HEPARIN SUB-Q SCH ×3 (06:18→22:15)
--- NOTE | 2017-06-02 08:37 | Progress Note ---
Assessment and Plan Impression: * DEBO on stage III CKD - SCr 1.6mg/dL in 12/29 --Low C3 noted, negative AMOS/ANCA --HD initiated on 05/27 for UF and volume control * Anasarca * Hyperkalemia * HTN * Cardiomyopathy--diastolic and systolic--ef 40% * Pulmonary hypertension * Type II DM * Chronic hep C * Hypoalbumemia without nephrotic syndrome * Probable sleep apnea Plan: * AM labs are pending * HD today for additional UF * Continue aggressive po diuresis--lasix/zaroxolyn * 24h urine CrCl pending - discussed with lab supervisor nurse * Renal/low k diet * Daily labs * Kayexalate prn for hyperkalemia * Fluid restriction * ? CPAP at night * No plans for outpatient HD at this time * Will anticipate d/c today pending 24h urine CrCl with close outpatient follow up; will need vascath removed prior to d/c Subjective Date of service: 06/02/17 Principal diagnosis: hyperkalemia, ckd 3 Interval history: Patient reports swelling has improved. Reports UOP x 3 yesterday Objective - Vital Signs Vital signs: Vital Signs - 12hr 06/01/17 06/01/17 06/02/17 21:21 22:48 00:44 Temperature 98.3 F 98.0 F Pulse Rate 79 79 74 Respiratory 20 20 Rate Blood Pressure 125/66 125/66 130/73 Blood Pressure [Left] O2 Sat by Pulse 94 96 Oximetry 06/02/17 06/02/17 06/02/17 05:51 06:33 08:20 Temperature 97.4 F L 78 F L Pulse Rate 73 80 73 Respiratory 20 18 Rate Blood Pressure 138/81 Blood Pressure 144/84 [Left] O2 Sat by Pulse 96 91 Oximetry - General Appearance General appearance: well-developed, well-nourished EENT: ATNC Cardiology: regular, S1S2 Gastrointestinal: normal, no tenderness, no distended Integumentary: no rash, warm and dry Neurologic: alert and oriented x3 Musculoskeletal: other (1+ pitting edema to thigh) Psychiatric: cooperative - Lab 05/28/17 04:59 05/31/17 04:16 Most recent lab results Calcium 7.6 mg/dL (8.4-10.2) L 05/31/17 04:16 Urine Creatinine 66.7 mg/dL (0.1-20.0) H 05/25/17 Unknown Ur Total Protein 24 Hr 1040.00 (2-200) H 05/26/17 09:23 Urine Total Protein 80 mg/dL (5-11.8) H 05/26/17 09:23
[2017-06-02] MEDS: APRESOLINE PO SCH ×3 (09:00→22:14)
[2017-06-02] MEDS: LYRICA PO SCH (10:42)
[2017-06-02] MEDS: ZAROXOLYN PO SCH (10:43)
[2017-06-02] MEDS: BABY ASPIRIN PO SCH (10:44)
[2017-06-02] MEDS: COREG PO SCH ×2 (10:45→22:13)
[2017-06-02] MEDS: celeXA PO SCH (10:48)
[2017-06-02] MEDS ORDERED: NACL 0.9% 100 ML IV PRN (11:00)
[2017-06-02] MEDS: PERCOCET 5/325 PO PRN ×2 (11:12→22:12)
[2017-06-02 12:28] LABS: Creatinine,Urine 48.6 mg/dL (0.1-20.0)
--- NOTE | 2017-06-02 14:56 | Progress Note ---
Assessment and Plan Assessment and plan: 62-year-old -Citizen Of [place] male with h/o CKD, DM, CHF presents with a two- week history of present worsening swelling of the legs, scrotum and abdomen and some mild shortness of breath. /Hyperkalemia, with Potassium increased to 6.0. - K level 5.0 today - s/p multiple round of kayexalate with calcium gluconate, insulin with D50, sodium bicarbonate to control K - started on oral sodium bicarbonate - monitor BMP, nephrology consulted - cont on renal diet /ARF/CKD 3, due to vasomotor nephropathy, poa - cont to Monitor renal function, Avoid nephrotoxins. - consulted nephrology, volume status not improving with diuresis - plan to start HD short term to control volume status and electrolytes /Acute systolic and diastolic heart failure - 2d echo showed EF 45-50% and grade 2 DD, his symptom might be also precipitated from volume overload and declining renaL FUNCTION - CXR showed mild CHF and left pleural effusion - monitor to telemetry bed - will cont on Aspirin, statin, and Lasix IV 80 mg BID - consulted cardiology - daily weights, monitor in's and O's /Hypertensive urgency. - Given hydralazine iv. started on oral Coreg, hydralazine and lasix /Diabetes mellitus type 2. - We cont on SSI /Hyperlipidemia. - On statin. /Hepatitis C - Monitor liver function /Polysubstance abuse with Marijuana, Cocaine - Counseled for cessation /Neuropathy. - Continue Lyrica from home. /Scrotal swelling - testicular US showed nonspecific swelling of the scrotum - cont lasix for now, monitor clinically DVT prophylaxis with Heparin subcut. Full code status 05/27/2017: Hemodialysis to started today after Vas-Cath d/w dr. Pacheco and no outpatient hd needed at this time but renal will access daily, Dr. Franklin saw pt today and ordered hemodialysis yesterday. 24 hour urine ending some time today; therefore, d/c tomorrow, and remove Vas Cath prior to discharge History Interval history: Patient was seen and examined. Follow-up on current diagnosis. Overnight uneventful. Patient denies any chest pain, shortness breath, nausea/vomiting or severe headaches. Imaging, nursing note, chart, labs and old chart reviewed. Discussed with patient. Hospitalist Physical - Physical exam Narrative exam: GENERAL: well-developed and well-nourished AAM lying on bed appeared to be in no discomfort. HEENT: Normocephalic. Atraumatic. No conjunctival congestion or icterus. Patient has moist mucous membranes. NECK: Supple. Trachea midline. CHEST/LUNGS: Clear to auscultated bilaterally, breathing nonlabored. No wheezes crackles or rhonchi. HEART/CARDIOVASCULAR: Regular in rate and rhythm. S1 and S2 positive. ABDOMEN: Abdomen is soft, nontender, distended, Patient has normal bowel sounds. genitourinary: scrotal and penile swelling, no skin color change SKIN: There is no rash. Warm and dry. NEURO: No new focal motor deficit. Follows command. MUSCULOSKELETAL: No joint effusion or tenderness. EXTRIMITY: + pedal edema, no cyanosis or clubbing. PSYCH: Cooperative. Oriented 3 - Constitutional Vitals: Temp Pulse Resp BP Pulse Ox 98.6 F 74 18 130/76 95 06/02/17 13:18 06/02/17 13:18 06/02/17 13:18 06/02/17 13:18 06/02/17 13:18 General appearance: Present: no acute distress Results - Labs CBC & Chem 7: 05/28/17 04:59 06/02/17 10:16 Labs: Laboratory Last Values WBC 3.6 K/mm3 (4.5-11.0) L 05/28/17 04:59 RBC 3.11 M/mm3 (3.65-5.03) L 05/28/17 04:59 Hgb 9.4 gm/dl (11.8-15.2) L 05/28/17 04:59 Hct 28.0 % (35.5-45.6) L 05/28/17 04:59 MCV 90 fl (84-94) 05/28/17 04:59 MCH 30 pg (28-32) 05/28/17 04:59 MCHC 33 % (32-34) 05/28/17 04:59 RDW 14.9 % (13.2-15.2) 05/28/17 04:59 Plt Count 162 K/mm3 (140-440) 05/28/17 04:59 Lymph % (Auto) 18.9 % (13.4-35.0) 05/26/17 05:31 [place] % (Auto) 15.1 % (0.0-7.3) H 05/26/17 05:31 Eos % (Auto) 9.5 % (0.0-4.3) H 05/26/17 05:31 Baso % (Auto) 1.4 % (0.0-1.8) 05/26/17 05:31 Lymph # 0.7 K/mm3 (1.2-5.4) L 05/26/17 05:31 [place] # 0.6 K/mm3 (0.0-0.8) 05/26/17 05:31 Eos # 0.4 K/mm3 (0.0-0.4) 05/26/17 05:31 Baso # 0.1 K/mm3 (0.0-0.1) 05/26/17 05:31 Seg Neutrophils % 55.1 % (40.0-70.0) 05/26/17 05:31 Seg Neutrophils # 2.1 K/mm3 (1.8-7.7) 05/26/17 05:31 Sodium 136 mmol/L (137-145) L 06/02/17 10:16 Potassium 4.2 mmol/L (3.6-5.0) 06/02/17 10:16 Chloride 99.1 mmol/L (98-107) 06/02/17 10:16 Carbon Dioxide 28 mmol/L (22-30) 06/02/17 10:16 Anion Gap 13 mmol/L 06/02/17 10:16 BUN 17 mg/dL (9-20) 06/02/17 10:16 Creatinine 1.8 mg/dL (0.8-1.5) H 06/02/17 10:16 Estimated GFR 39 ml/min 06/02/17 10:16 BUN/Creatinine Ratio 9 % 06/02/17 10:16 Glucose 214 mg/dL (75-100) H 06/02/17 10:16 POC Glucose 187 (70-105) H 06/01/17 21:26 Calcium 8.0 mg/dL (8.4-10.2) L 06/02/17 10:16 Total Bilirubin 0.30 mg/dL (0.1-1.2) 05/23/17 08:29 AST 29 units/L (5-40) 05/23/17 08:29 ALT 17 units/L (7-56) 05/23/17 08:29 Alkaline Phosphatase 82 units/L (35-129) 05/23/17 08:29 Troponin T 0.081 ng/mL (0.00-0.029) H 05/23/17 08:29 NT-Pro-B Natriuret Pep 35502 pg/mL (0-900) H 05/23/17 08:29 Total Protein 5.9 g/dL (6.3-8.2) L 05/23/17 08:29 Albumin 2.5 g/dL (3.9-5) L 05/23/17 08:29 Albumin/Globulin Ratio 0.7 % 05/23/17 08:29 Triglycerides 77 mg/dL (2-149) 05/23/17 08:29 Cholesterol 136 mg/dL (50-199) 05/23/17 08:29 LDL Cholesterol Direct 69 mg/dL (50-130) 05/23/17 08:29 HDL Cholesterol 52 mg/dL (40-59) 05/23/17 08:29 Cholesterol/HDL Ratio 2.61 % 05/23/17 08:29 Urine Color Yellow (Yellow) 05/25/17 Unknown Urine Turbidity Clear (Clear) 05/25/17 Unknown Urine pH 5.0 (5.0-7.0) 05/25/17 Unknown Ur Specific [place] 1.009 (1.003-1.030) 05/25/17 Unknown Urine Protein 30 mg/dl mg/dL (Negative) 05/25/17 Unknown Urine Glucose (UA) Neg mg/dL (Negative) 05/25/17 Unknown Urine Ketones Neg mg/dL (Negative) 05/25/17 Unknown Urine Blood Neg (Negative) 05/25/17 Unknown Urine Nitrite Neg (Negative) 05/25/17 Unknown Urine Bilirubin Neg (Negative) 05/25/17 Unknown Urine Urobilinogen < 2.0 mg/dL (<2.0) 05/25/17 Unknown Ur Leukocyte Esterase Neg (Negative) 05/25/17 Unknown Urine WBC (Auto) 1.0 /HPF (0.0-6.0) 05/25/17 Unknown Urine RBC (Auto) 3.0 /HPF (0.0-6.0) 05/25/17 Unknown U Epithel Cells (Auto) < 1.0 /HPF (0-13.0) 05/25/17 Unknown Urine Bacteria (Auto) 1+ /HPF (Negative) 05/25/17 Unknown Hyaline Casts 4 /LPF 05/23/17 07:46 Urine Yeast (Budding) Few /HPF 05/25/17 Unknown Urine Eosinophils None seen (None Seen) 05/25/17 Unknown Urine Total Volume 1300 05/26/17 09:23 Urine Creatinine 48.6 mg/dL (0.1-20.0) H 05/26/17 09:00 Height (in) 67.0 inches 05/26/17 09:00 Weight (lb) 171.0 lbs 05/26/17 09:00 Creatinine Clearance 16 05/26/17 09:00 Ur Total Protein 24 Hr 1040.00 (2-200) H 05/26/17 09:23 Protein/Creatinin Ratio 0.78 05/25/17 Unknown Urine Total Protein 80 mg/dL (5-11.8) H 05/26/17 09:23 AMOS Screen Negative (Negative) 05/24/17 13:16 Proteinase 3 (PR3) Ab <1.0 AI (<1.0) 05/24/17 13:16 Myeloperoxidase Ab <1.0 AI (<1.0) 05/24/17 13:16 Complement C3 73 mg/dL (82-185) L 05/24/17 13:16 Complement C4 21 mg/dL (15-53) 05/24/17 13:16 Hep Bs Antigen Non-reactive (Negative) 05/24/17 13:16 Hepatitis C Antibody Reactive (NonReactive) A 05/24/17 13:16
[2017-06-02] MEDS ORDERED: NACL 0.9 (PRIMING MACHINE ONLY DIALYSIS) MC ONE (17:56)
[2017-06-02] MEDS: HEPARIN IV PRN (18:29)
[2017-06-02] MEDS: PROCRIT IV PRN (18:29)
[2017-06-03] MEDS: LASIX PO SCH (05:54)
[2017-06-03] MEDS: HEPARIN SUB-Q SCH (05:58)
[2017-06-03 08:05] LABS: Hematocrit 29.3 % (35.5-45.6); Hemoglobin 9.8 gm/dl (11.8-15.2); Mean Corpuscular HGB Conc 33 % (32-34); Mean Corpuscular Hemoglobin 30 pg (28-32); Mean Corpuscular Volume 90 fl (84-94); Platelet Count 149 K/mm3 (140-440); Red Blood Count 3.27 M/mm3 (3.65-5.03); Red Cell Distribution Width 15.5 % (13.2-15.2)
[2017-06-03 08:20] LABS: Calcium 8.2 mg/dL (8.4-10.2)
[2017-06-03] MEDS ORDERED: ANTIBIOTIC OINT TP PRN (09:22)
--- NOTE | 2017-06-03 09:23 | Progress Note ---
Assessment and Plan Impression: * DEBO on stage III CKD - SCr 1.6mg/dL in 12/29 --Low C3 noted, negative AMOS/ANCA --HD initiated on 05/27 for UF and volume control * Anasarca * Hyperkalemia * HTN * Cardiomyopathy--diastolic and systolic--ef 40% * Pulmonary hypertension * Type II DM * Chronic hep C * Hypoalbumemia without nephrotic syndrome * Probable sleep apnea Plan: * Pull vas cath today * Hold HD * Continue Lasix 80mg BID and Metolazone 5mg daily * Low Na and fluid restriction discussed * Arrange close nephrology follow up * Okay to d/c to home following vascath removal Subjective Date of service: 06/03/17 Principal diagnosis: hyperkalemia, ckd 3 Interval history: Patient reports that swelling has improved. Objective - Vital Signs Vital signs: Vital Signs - 12hr 06/02/17 06/03/17 06/03/17 22:13 06:30 06:31 Temperature Pulse Rate 83 72 74 Respiratory Rate Blood Pressure 147/79 149/89 O2 Sat by Pulse 96 97 Oximetry 06/03/17 06/03/17 06:50 08:03 Temperature 97.6 F Pulse Rate 86 77 Respiratory 18 Rate Blood Pressure 169/97 O2 Sat by Pulse 95 Oximetry - General Appearance General appearance: well-developed, well-nourished EENT: ATNC Respiratory: Present: Clear to Ascultation Cardiology: regular, S1S2 Gastrointestinal: normal Integumentary: no rash, warm and dry Neurologic: no focal deficit, alert and oriented x3 Musculoskeletal: other (1+ edema) Psychiatric: cooperative - Lab 06/03/17 07:43 06/03/17 07:43 Most recent lab results Calcium 8.2 mg/dL (8.4-10.2) L 06/03/17 07:43 Urine Creatinine 48.6 mg/dL (0.1-20.0) H 05/26/17 09:00 Ur Total Protein 24 Hr 1040.00 (2-200) H 05/26/17 09:23 Urine Total Protein 80 mg/dL (5-11.8) H 05/26/17 09:23
[2017-06-03] MEDS: LYRICA PO SCH (10:13)
[2017-06-03] MEDS: ZAROXOLYN PO SCH (10:13)
[2017-06-03] MEDS: APRESOLINE PO SCH (10:13)
[2017-06-03] MEDS: celeXA PO SCH (10:13)
[2017-06-03] MEDS: BABY ASPIRIN PO SCH (10:13)
[2017-06-03] MEDS: COREG PO SCH (10:14)
[2017-06-03] MEDS: PERCOCET 5/325 PO PRN (10:36)
--- NOTE | 2017-06-03 11:11 | Discharge Summary ---
Providers - Providers Date of Admission: 05/23/17 10:01 Date of discharge: 06/03/17 Attending physician: ОЛЬГА RAMIREZ 05/24/17 09:16 Consult to Physician [CONS] Routine Consulting Provider: RAY CASTANO Reason For Exam: DEBO Place consult to:: production control coordinating clerk nephrology Notified:: service Phone number called:: [phone] Was contact made?: Yes If yes, spoke with:: meseret Time called:: 11:08 05/26/17 10:02 Consult to Physician [CONS] Routine Consulting Provider: KEYA TAYLOR Reason For Exam: vasc cath placement Place consult to:: Dr. Taylor Notified:: Susana LAMBERT Phone number called:: Was contact made?: Yes If yes, spoke with:: Mikayla-office Time called:: 10:20 06/02/17 09:50 Consult to Dietitian/Nutrition [CONS] Routine Physician Instructions: Reason For Exam: Sodium restricted diet Reason for Consult: Diet education Primary care physician: CHARLES PHELPS Hospitalization Condition: Stable Hospital course: 62-year-old -[place]ish male with h/o CKD, DM, CHF presents with a two- week history of present worsening swelling of the legs, scrotum and abdomen and some mild shortness of breath. /Hyperkalemia, with Potassium increased to 6.0. /ARF/CKD 3, due to vasomotor nephropathy, poa /Acute systolic and diastolic heart failure /Hypertensive urgency. /Diabetes mellitus type 2. /Hyperlipidemia. /Hepatitis C /Polysubstance abuse with Marijuana, Cocaine /Neuropathy. /Scrotal swelling - testicular US showed nonspecific swelling of the scrotum - cont lasix for now, monitor clinically DVT prophylaxis with Heparin subcut. Full code status 05/27/2017: Hemodialysis started after Vas-Cath placed 06/03/17: per [employer] Technology Instructor, Dr. Pacheco: "Assessment and Plan Impression: DEBO on stage III CKD - SCr 1.6mg/dL in 12/29 --Low C3 noted, negative AMOS/ANCA --HD initiated on 05/27 for UF and volume control Anasarca Hyperkalemia HTN Cardiomyopathy--diastolic and systolic--ef 40% Pulmonary hypertension Type II DM Chronic hep C Hypoalbumemia without nephrotic syndrome Probable sleep apnea Plan: Pull vas cath today Hold HD Continue Lasix 80mg BID and Metolazone 5mg daily Low Na and fluid restriction discussed Arrange close nephrology follow up Okay to d/c to home following vascath removal" Disposition: DC-01 TO HOME OR SELFCARE Time spent for discharge: 35 minutes Core Measure Documentation - Palliative Care Palliative Care/ Comfort Measures: Not Applicable - Core Measures Any of the following diagnoses?: heart failure - VTE Discharge Requirements Deep Vein Thrombosis/Pulmonary Embolism Present on Admission: No Has pt received <5 days of overlap therapy or INR<2.0: No Anticoagulant overlap therapy prescribed at discharge: No Contraindication No Overlap Therapy order at DC: Not Indicated - Heart Failure Discharge Requirements CHRISTINA/ARB for LVSD if EF <40%: No Reason for no CHRISTINA/ARB: Renal impairment Beta juaquin at discharge: Yes Exam - Physical Exam Narrative exam: GENERAL: well-developed and well-nourished AAM lying on bed appeared to be in no discomfort. HEENT: Normocephalic. Atraumatic. No conjunctival congestion or icterus. Patient has moist mucous membranes. NECK: Supple. Trachea midline. CHEST/LUNGS: Clear to auscultated bilaterally, breathing nonlabored. No wheezes crackles or rhonchi. HEART/CARDIOVASCULAR: Regular in rate and rhythm. S1 and S2 positive. ABDOMEN: Abdomen is soft, nontender, distended, Patient has normal bowel sounds. genitourinary: scrotal and penile swelling improved, no skin color change SKIN: There is no rash. Warm and dry. NEURO: No new focal motor deficit. Follows command. MUSCULOSKELETAL: No joint effusion or tenderness. EXTRIMITY: + pedal edema, no cyanosis or clubbing. PSYCH: Cooperative. Oriented 3 - Constitutional Vitals: Temp Pulse Resp BP Pulse Ox 97.6 F 77 18 169/97 95 06/03/17 08:03 06/03/17 10:14 06/03/17 08:03 06/03/17 10:14 06/03/17 08:03 Plan Activity: other (no strenous activity until cleared by pcp) Diet: renal Follow up with: PRIMARY CAREMD [Referring] - 3-5 Days RAY CASTANO MD [Staff Physician] - 7 Days Prescriptions: AtorvaSTATin [Lipitor] 10 mg PO QHS #30 tablet Carvedilol [Coreg] 6.25 mg PO BID #60 tablet Furosemide [Lasix TAB] 80 mg PO 0600,1800 #60 tablet hydrALAZINE [Apresoline TAB] 2 tab PO TID #1 mo Metolazone [Zaroxolyn] 5 mg PO QDAY #30 tablet oxyCODONE /ACETAMINOPHEN [Percocet 5/325 mg] 1 tab PO Q6H PRN #20 tablet PRN Reason: Pain , Severe (7-10) Pregabalin [Lyrica] 75 mg PO BID #60 capsule
[2017-06-03 12:27] VITALS: BP 138/81
== END 2017-06-03 13:08 | disposition home or self-care (01) | DRG 682 ==
LOC: ED 06:17 → 3A 10:01 → 4A 21:30
PROVIDERS: ADMIT Internal Medicine; ATTEND Internal Medicine
PROC: 5A1D70Z Performance of Urinary Filtration, Intermittent, Less than 6 Hours Per Day (ICD-10-PCS; principal; 2017-05-27)
PROC: 02H633Z Insertion of Infusion Device into Right Atrium, Percutaneous Approach (ICD-10-PCS; 2017-05-27)
PROC: B5131ZA Fluoroscopy of Right Jugular Veins using Low Osmolar Contrast, Guidance (ICD-10-PCS; 2017-05-27)
PROC: 5A1D70Z Performance of Urinary Filtration, Intermittent, Less than 6 Hours Per Day (ICD-10-PCS; 2017-05-28)
PROC: 5A1D70Z Performance of Urinary Filtration, Intermittent, Less than 6 Hours Per Day (ICD-10-PCS; 2017-05-29)
PROC: 5A1D70Z Performance of Urinary Filtration, Intermittent, Less than 6 Hours Per Day (ICD-10-PCS; 2017-05-30)
PROC: 5A1D70Z Performance of Urinary Filtration, Intermittent, Less than 6 Hours Per Day (ICD-10-PCS; 2017-05-31)
PROC: 5A1D70Z Performance of Urinary Filtration, Intermittent, Less than 6 Hours Per Day (ICD-10-PCS; 2017-06-02)
DX: N17.0 Acute kidney failure with tubular necrosis (principal); I50.41 Acute combined systolic (congestive) and diastolic (congestive) heart failure; I13.0 Hypertensive heart and chronic kidney disease with heart failure and stage 1 through stage 4 chronic kidney disease, or unspecified chronic kidney disease; E87.5 Hyperkalemia; N18.3 Chronic kidney disease, stage 3 (moderate); I16.0 Hypertensive urgency; E11.22 Type 2 diabetes mellitus with diabetic chronic kidney disease; E78.5 Hyperlipidemia, unspecified; B19.20 Unspecified viral hepatitis C without hepatic coma; Z79.82 Long term (current) use of aspirin; F17.200 Nicotine dependence, unspecified, uncomplicated; F14.10 Cocaine abuse, uncomplicated; F12.10 Cannabis abuse, uncomplicated; N50.89 Other specified disorders of the male genital organs; I25.10 Atherosclerotic heart disease of native coronary artery without angina pectoris; I42.9 Cardiomyopathy, unspecified; E11.40 Type 2 diabetes mellitus with diabetic neuropathy, unspecified; I27.20 Pulmonary hypertension, unspecified
CPT/HCPCS: 36415; 36556; 71045; 76700; 80048; 80053; 80061; 81001; 82565; 82570; 82575; 82962; 83880; 84132; 84156; 84484; 85025; 85027; 86021; 86038; 86160; 86706; 86803; 89050; 93005; 93010; 93306; 93975; 96372; 96374; 96375; A9270-GY; C1752; J0610; J0690; J0885; J1644; J1815; J1940; J2250; J2270; J3010; J7030; J7050; P9047

== ENCOUNTER 2019-06-08 18:33 | Inpatient (IN) | payer MEDICAID ==
--- NOTE | 2019-06-08 20:53 | Event Note ---
ED Screening Note Date of service: 06/08/19 Time: 20:49 ED Screening Note: 64 male presents with bilateral leg swelling and pain also cc of abd pain This initial assessment/diagnostic orders/clinical plan/treatment(s) is/are subject to change based on patients health status, clinical progression and re- assessment by fellow clinical providers in the ED. Further treatment and workup at subsequent clinical providers discretion. Patient/guardian urged not to elope from the ED as their condition may be serious if not clinically assessed and managed. Initial orders include: labs, main side eval
[2019-06-08] MEDS ORDERED: FUROSEMIDE 40 MG/4 ML INJ IV ONE (22:17)
[2019-06-08 22:39] LABS: Basophils # (Auto) 0.1 K/mm3 (0.0-0.1); Basophils % (Auto) 2.1 % (0.0-1.8); Eosinophils # (Auto) 0.2 K/mm3 (0.0-0.4); Eosinophils % (Auto) 6.3 % (0.0-4.3); Hematocrit 29.5 % (35.5-45.6); Hemoglobin 9.8 gm/dl (11.8-15.2); Lymphocytes # (Auto) 0.7 K/mm3 (1.2-5.4); Lymphocytes % (Auto) 17.6 % (13.4-35.0); Mean Corpuscular HGB Conc 33 % (32-34); Mean Corpuscular Volume 86 fl (84-94); Monocytes # (Auto) 0.5 K/mm3 (0.0-0.8); Monocytes % (Auto) 13.1 % (0.0-7.3); Platelet Count 134 K/mm3 (140-440); Red Blood Count 3.45 M/mm3 (3.65-5.03); Red Cell Distribution Width 15.6 % (13.2-15.2)
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
[2019-06-08 23:01] LABS: Albumin 3.4 g/dL (3.9-5); Calcium 7.9 mg/dL (8.4-10.2)
--- NOTE | 2019-06-08 23:08 | XRay Report ---
CHEST PA AND LATERAL VIEWS INDICATION: shortness of breath. COMPARISON: 05/27/2017 FINDINGS: Support devices: None. Heart: Mildly enlarged Lungs/Pleura: No acute pulmonary or pleural findings. IMPRESSION: 1. No acute findings. Signer Name: Hardeep Connor MD Signed: 06/08/2019 11:03 PM Workstation Name: [id number]
[2019-06-09] MEDS ORDERED: SODIUM BICARB 8.4% 50 MEQ/50 ML SYRINGE IV ONE (00:14)
[2019-06-09] MEDS ORDERED: INSULIN REGULAR, HUMAN 100 UNITS/1 ML IV ONE (00:14)
[2019-06-09] MEDS ORDERED: SODIUM POLYSTYRENE 15 GM/60 ML ORAL LIQD PO ONE (00:14)
[2019-06-09] MEDS ORDERED: DEXTROSE 50% IN WATER (25GM) 50 ML SYRINGE IV ONE (00:14)
[2019-06-09] MEDS ORDERED: ASPIRIN 325 MG TAB PO ONE (00:21)
--- NOTE | 2019-06-09 00:59 | History and Physical Report ---
History of Present Illness History of present illness: 64-year-old man with a history of hypertension, diabetes, CHF, chronic kidney disease, hep C, hyperlipidemia comes emergency room with complaints of shortness of breath x3 weeks, swelling of his feet and PND. He states he is not taking his diuretic as he should however when asked to schedule off his diuretic he is not sure what he should be taking, he cannot say how he currently takes his diuretic at home. Denies orthopnea. Also complaining of chest pain or chest pain ongoing for several weeks, worse yesterday, pain is in the left chest which she described as sharp pain, intermittent every 1 minute, intensity 4/10, no radiation, cannot identify exacerbating or relieving factors. Denies nausea vomiting, diaphoresis or palpitation Review Of Systems: Constitutional: no weight loss, fever, chills Ears, eyes, nose, mouth and throat: no nasal congestion, no nasal discharge, no sinus pressure, blurry vision, diplopia Neck: No neck pain or rigidity. Cardiovascular: No palpitations, chest pain Respiratory: No cough Gastrointestinal: No hematochezia, abdominal pain Genitourinary : no dysuria, frequency Musculoskeletal: no muscle ache , joint pain Integumentary: no rash, no pruritis Neurological: no parathesias, focal weakness Endocrine: no cold or heat intolerance, no polyuria or polydipsia Hematologic/Lymphatic: no easy bruising, no easy bleeding, no gland swelling Allergic/Immunologic: no urticaria, no angioedema. PAST MEDICAL HISTORY: hypertension, diabetes, CHF, chronic kidney disease, hep C, hyperlipidemia PAST SURGICAL HISTORY: None SOCIAL HISTORY: Denies alcohol, tobacco, drugs FAMILY HISTORY: Hypertension Medications and Allergies Allergies Allergy/AdvReac Type Severity Reaction Status Date / Time No Known Allergies Allergy Unverified 01/04/17 08:05 Home Medications Medication Instructions Recorded Confirmed Last Taken Type Pregabalin 75 mg PO BID #60 capsule 06/03/17 Unknown Rx carvediloL [Coreg] 6.25 mg PO BID #60 tablet 06/03/17 Unknown Rx Bumetanide 2 mg PO QDAY 06/09/19 06/09/19 Unknown History Citalopram [celeXA] 20 mg PO QDAY 06/09/19 06/09/19 Unknown History Loperamide [Imodium] 2 mg PO PRN PRN 06/09/19 06/09/19 Unknown History NIFEdipine [Nifedipine ER] 90 mg PO QDAY 06/09/19 06/09/19 Unknown History diphenhydrAMINE [Benadryl CAP] 50 mg PO QHS PRN 06/09/19 06/09/19 Unknown History hydrALAZINE [Apresoline TAB] 100 mg PO Q8HR 06/09/19 06/09/19 Unknown History Exam - Physical Exam Narrative exam: Gen. appearance: Patient lying in bed, no apparent distress HEENT: Normocephalic, atraumatic, pupils equally round and reactive to light, extraocular movement intact, and no sclericterus,. No JVD or thyromegaly or nodule,neck supple, no carotid bruit ,mucous membranes moist, no exudate or erythema Heart: S1, S2, regular rate and rhythm Lungs: Crackles bilaterally, breathing comfortable Abdomen: Positive bowel sounds, nontender, nondistended, no organomegaly Extremity: Trace edema, cyanosis, clubbing Skin: No rash, nodules, warm, dry Neuro: speech is fluent, moves extremities, sensory intact - Constitutional Vitals: Temp Pulse Resp BP Pulse Ox 97.6 F 59 L 18 130/73 96 06/08/19 22:00 06/08/19 22:50 06/08/19 22:50 06/08/19 22:50 06/08/19 22:50 Results - Labs CBC & Chem 7: 06/08/19 22:19 06/08/19 22:19 Labs: Abnormal lab results 06/08/19 06/08/19 06/08/19 Range/Units 22:19 22:19 22:19 WBC 3.9 L (4.5-11.0) K/mm3 RBC 3.45 L (3.65-5.03) M/mm3 Hgb 9.8 L (11.8-15.2) gm/dl Hct 29.5 L (35.5-45.6) % RDW 15.6 H (13.2-15.2) % Plt Count 134 L (140-440) K/mm3 [place] % (Auto) 13.1 H (0.0-7.3) % Eos % (Auto) 6.3 H (0.0-4.3) % Baso % (Auto) 2.1 H (0.0-1.8) % Lymph # 0.7 L (1.2-5.4) K/mm3 Potassium 5.6 H (3.6-5.0) mmol/L Chloride 110.9 H (98-107) mmol/L Carbon Dioxide 17 L (22-30) mmol/L BUN 47 H (9-20) mg/dL Creatinine 3.6 H (0.8-1.5) mg/dL Glucose 147 H (75-100) mg/dL Calcium 7.9 L (8.4-10.2) mg/dL Troponin T 0.101 H* (0.00-0.029) ng/mL NT-Pro-B Natriuret Pep (0-900) pg/mL Albumin 3.4 L (3.9-5) g/dL 06/08/19 Range/Units 22:19 WBC (4.5-11.0) K/mm3 RBC (3.65-5.03) M/mm3 Hgb (11.8-15.2) gm/dl Hct (35.5-45.6) % RDW (13.2-15.2) % Plt Count (140-440) K/mm3 [place] % (Auto) (0.0-7.3) % Eos % (Auto) (0.0-4.3) % Baso % (Auto) (0.0-1.8) % Lymph # (1.2-5.4) K/mm3 Potassium (3.6-5.0) mmol/L Chloride (98-107) mmol/L Carbon Dioxide (22-30) mmol/L BUN (9-20) mg/dL Creatinine (0.8-1.5) mg/dL Glucose (75-100) mg/dL Calcium (8.4-10.2) mg/dL Troponin T (0.00-0.029) ng/mL NT-Pro-B Natriuret Pep 16400 H (0-900) pg/mL Albumin (3.9-5) g/dL - Imaging and Cardiology EKG: image reviewed Chest x-ray: report reviewed Assessment and Plan Assessment Acute on chronic renal failure Consult renal, check ultrasound of the kidneys Avoid nephrotoxins. Acute on chronic systolic congestive heart failure Hold diuretic for now Check cardiac enzymes, echo and consult cardiology Monitor daily weights, monitor in's and O's Chest pain with elevated troponin in setting of renal failure Monitor cardiac enzymes, consult cardiology Hyperkalemia Status post hyperkalemia cocktail in the ER, monitor potassium Thrombocytopenia Continue to monitor Hypertensive continue appropriate outpatient medications Diabetes mellitus type 2. Check fingersticks initiate insulin sliding scale Hyperlipidemia. Start On statin. Hepatitis C Stable DVT prophylaxis
[2019-06-09 01:31] LABS: Chol/HDL Ratio 3.37 %
[2019-06-09 01:39] LABS: Bacteria,Urine 1+ /HPF (Negative); Bilirubin,Urine NEG (Negative); Blood,Urine NEG (Negative); Color,Urine Yellow (Yellow); Hyaline Casts,Urine 10 /LPF; Mucus,Urine FEW /HPF; Urobilinogen,Urine < 2.0 mg/dL (<2.0)
[2019-06-09] MEDS ORDERED: LOPERAMIDE 2 MG CAP PO PRN (04:23)
[2019-06-09] MEDS ORDERED: diphenhydrAMINE 50 MG CAP PO PRN (04:23)
[2019-06-09] MEDS ORDERED: ACETAMINOPHEN 325 MG TAB PO PRN (04:25)
[2019-06-09] MEDS ORDERED: ONDANSETRON 4 MG/2 ML INJ IV PRN (04:25)
[2019-06-09 05:27] LABS: Basophils # (Auto) 0.1 K/mm3 (0.0-0.1); Basophils % (Auto) 1.2 % (0.0-1.8); Eosinophils # (Auto) 0.1 K/mm3 (0.0-0.4); Eosinophils % (Auto) 3.1 % (0.0-4.3); Hematocrit 29.6 % (35.5-45.6); Hemoglobin 9.7 gm/dl (11.8-15.2); Lymphocytes # (Auto) 0.6 K/mm3 (1.2-5.4); Lymphocytes % (Auto) 13.6 % (13.4-35.0); Mean Corpuscular HGB Conc 33 % (32-34); Mean Corpuscular Volume 85 fl (84-94); Monocytes # (Auto) 0.4 K/mm3 (0.0-0.8); Monocytes % (Auto) 10.1 % (0.0-7.3); Platelet Count 138 K/mm3 (140-440); Red Blood Count 3.47 M/mm3 (3.65-5.03); Red Cell Distribution Width 15.1 % (13.2-15.2)
[2019-06-09 05:48] LABS: Creatine Kinase MB 8.5 ng/mL (0.0-4.0)
--- NOTE | 2019-06-09 08:58 | Event Note ---
Date: 06/09/19 Patient was admitted early this morning with acute on chronic kidney disease Acute on chronic systolic congestive heart failure, cardiology nephrology consulted Agree with the current management, follow consultants recommendations Plan of care reviewed with the patient and his nurse
[2019-06-09] MEDS ORDERED: ENOXAPARIN 30 MG/0.3 ML INJ SUB-Q SCH (10:00)
--- NOTE | 2019-06-09 10:07 | Consultation ---
History of Present Illness Consult date: 06/09/19 Consult reason: chest pain, congestive heart failure History of present illness: Patient is a 64-year old male with a history of heart failure with preserved ejection fraction, chronic kidney disease, diabetes and hypertension. Patient reports he receives his usual care at [facility]. He latest cardiac evaluation was done at this hospital. In 2018, he had a negative stress thallium test. An echocardiogram in 2018 documents an left ventricular ejection fraction 45-55%. Patient presents with shortness of breath and edema, admitted with volume ov erload due to poor compliance with outpatient medical therapy and dietary salt restriction. Patient denies chest pain. His ECG is sinus bradycardia, rate 58. No acute ischemic changes. Medications and Allergies Allergies Allergy/AdvReac Type Severity Reaction Status Date / Time No Known Allergies Allergy Unverified 01/04/17 08:05 Home Medications Medication Instructions Recorded Confirmed Last Taken Type Pregabalin 75 mg PO BID #60 capsule 06/03/17 Unknown Rx carvediloL [Coreg] 6.25 mg PO BID #60 tablet 06/03/17 Unknown Rx Bumetanide 2 mg PO QDAY 06/09/19 06/09/19 Unknown History Citalopram [celeXA] 20 mg PO QDAY 06/09/19 06/09/19 Unknown History Loperamide [Imodium] 2 mg PO PRN PRN 06/09/19 06/09/19 Unknown History NIFEdipine [Nifedipine ER] 90 mg PO QDAY 06/09/19 06/09/19 Unknown History diphenhydrAMINE [Benadryl CAP] 50 mg PO QHS PRN 06/09/19 06/09/19 Unknown History hydrALAZINE [Apresoline TAB] 100 mg PO Q8HR 06/09/19 06/09/19 Unknown History Active Meds: Active Medications Acetaminophen (Tylenol) 650 mg PO Q4H PRN PRN Reason: Pain MILD(1-3)/Fever >100.5/GALVEZ Carvedilol (Coreg) 6.25 mg PO BID BHARGAVI Citalopram Hydrobromide (Celexa) 20 mg PO QDAY BHARGAVI Diphenhydramine HCl (Benadryl) 50 mg PO QHS PRN PRN Reason: Insomnia Loperamide HCl (Imodium) 2 mg PO Q3H PRN PRN Reason: Loose Stool Nifedipine (Procardia Xl) 90 mg PO QDAY@0800 BHARGAVI Ondansetron HCl (Zofran) 4 mg IV Q8H PRN PRN Reason: Nausea And Vomiting Pregabalin (Pregabalin) 75 mg PO BID BHARGAVI Sodium Chloride (Sodium Chloride Flush Syringe 10 Ml) 10 ml IV BID BHARGAVI Sodium Chloride (Sodium Chloride Flush Syringe 10 Ml) 10 ml IV PRN PRN PRN Reason: LINE FLUSH Physical Examination Vital Signs Temp Pulse Resp BP Pulse Ox 97.7 F 60 18 132/71 96 06/08/19 20:48 06/08/19 20:48 06/08/19 20:48 06/08/19 20:48 06/08/19 20:48 General appearance: no acute distress HEENT: Positive: PERRL Neck: Positive: trachea midline Cardiac: Positive: Reg Rate and Rhythm Lungs: Positive: Decreased Breath Sounds Neuro: Positive: Grossly Intact Extremities: Present: +1 Edema Results 06/09/19 04:47 06/09/19 04:47 Cardiac Enzymes 06/08/19 06/09/19 Range/Units 22:19 04:47 AST 18 (5-40) units/L CK-MB (CK-2) 8.5 H (0.0-4.0) ng/mL Lipids 06/08/19 Range/Units 22:19 Triglycerides 78 (2-149) mg/dL Cholesterol 145 (50-199) mg/dL HDL Cholesterol 43 (40-59) mg/dL Cholesterol/HDL Ratio 3.37 % CBC 06/08/19 06/09/19 Range/Units 22:19 04:47 WBC 3.9 L 4.4 L (4.5-11.0) K/mm3 RBC 3.45 L 3.47 L (3.65-5.03) M/mm3 Hgb 9.8 L 9.7 L (11.8-15.2) gm/dl Hct 29.5 L 29.6 L (35.5-45.6) % Plt Count 134 L 138 L (140-440) K/mm3 Lymph # 0.7 L 0.6 L (1.2-5.4) K/mm3 [place] # 0.5 0.4 (0.0-0.8) K/mm3 Eos # 0.2 0.1 (0.0-0.4) K/mm3 Baso # 0.1 0.1 (0.0-0.1) K/mm3 Comprehensive Metabolic Panel 06/08/19 06/09/19 Range/Units 22:19 04:47 Sodium 141 142 (137-145) mmol/L Potassium 5.6 H 5.0 (3.6-5.0) mmol/L Chloride 110.9 H 111.1 H (98-107) mmol/L Carbon Dioxide 17 L 16 L (22-30) mmol/L BUN 47 H 49 H (9-20) mg/dL Creatinine 3.6 H 3.6 H (0.8-1.5) mg/dL Glucose 147 H 129 H (75-100) mg/dL Calcium 7.9 L 8.0 L (8.4-10.2) mg/dL AST 18 (5-40) units/L ALT 7 (7-56) units/L Alkaline Phosphatase 85 (35-129) units/L Total Protein 6.9 (6.3-8.2) g/dL Albumin 3.4 L (3.9-5) g/dL Assessment and Plan Volume overload s/t noncompliance with outpatient medical therapy Chronic renal failure Hypertension Diabetes No ischemia by MPi 12/2016. LVEF 45-50% by echo 05/2017. Plan: We will obtain an echocardiogram for LVEF reassessment. Patient seen in conjunction with Dr Celeste who agrees with the plan.
[2019-06-09] MEDS: carvediloL 6.25 MG TAB PO SCH ×2 (10:09→22:44)
[2019-06-09] MEDS: CITALOPRAM 20 MG TAB PO SCH (10:09)
[2019-06-09] MEDS: PREGABALIN 75 MG CAP PO SCH ×2 (10:09→22:44)
[2019-06-09] MEDS: NIFEdipine XL 90 MG TAB PO SCH (10:09)
[2019-06-09 14:11] LABS: Creatine Kinase MB 7.2 ng/mL (0.0-4.0)
--- NOTE | 2019-06-09 16:13 | Ultrasound Report ---
ULTRASOUND RENAL INDICATION / CLINICAL INFORMATION: arf. COMPARISON: Abdominal ultrasound from 05/27/2017 FINDINGS: RIGHT KIDNEY: Length = 10.2 cm. [normal > 9 cm] - Parenchymal Thickness = 1.5 cm. [normal > 1.5 cm] - Echogenicity: Normal. - Hydronephrosis: None. - Cyst or mass: No significant abnormality. - Stones: None seen. LEFT KIDNEY: Length = 9.4 cm. [normal > 9 cm] - Parenchymal Thickness = 1.4 cm. [normal > 1.5 cm] - Echogenicity: Normal. - Hydronephrosis: None. - Cyst or mass: No significant abnormality. - Stones: None seen. URINARY BLADDER: No significant abnormality. FREE FLUID: Moderate volume ascites. ADDITIONAL FINDINGS: None. IMPRESSION: 1. Unremarkable kidneys. 2. Moderate volume ascites. Signer Name: Ayden Mcnulty MD Signed: 06/09/2019 4:09 PM Workstation Name: [id number]
--- NOTE | 2019-06-09 16:30 | Consultation ---
History of Present Illness - Reason for Consult Consult date: 06/09/19 acute renal failure - History of Present Illness Mr. Aivna is a 64yo with chronic kidney disease, cardiomyopathy who presents to the ED with SOB. He reports he was in usual state of health until appx 3-4 weeks ago when he began experiencing leg swelling. He reports swelling progressively worsened and was associated with difficulty breathing. He denies chest pain. Mr. Avina reports noncompliance with medications and diet. He states that stopped medications some time ago and did not resume medications until appx 1 week ago. He also reports noncompliance with outpatient follow up. Since admission, he reports leg swelling has improved, but abdominal distention remains. Past History Past Medical History: other (CKD, cardiomyopathy, hepatitis C, hypertension, type II DM, ) Past Surgical History: No surgical history Medications and Allergies Allergies Allergy/AdvReac Type Severity Reaction Status Date / Time No Known Allergies Allergy Unverified 01/04/17 08:05 Home Medications Medication Instructions Recorded Confirmed Last Taken Type Pregabalin 75 mg PO BID #60 capsule 06/03/17 06/09/19 Unknown Rx carvediloL [Coreg] 6.25 mg PO BID #60 tablet 06/03/17 06/09/19 Unknown Rx Bumetanide 2 mg PO QDAY 06/09/19 06/09/19 Unknown History Citalopram [celeXA] 20 mg PO QDAY 06/09/19 06/09/19 Unknown History Loperamide [Imodium] 2 mg PO PRN PRN 06/09/19 06/09/19 Unknown History NIFEdipine [Nifedipine ER] 90 mg PO QDAY 06/09/19 06/09/19 Unknown History diphenhydrAMINE [Benadryl CAP] 50 mg PO QHS PRN 06/09/19 06/09/19 Unknown History hydrALAZINE [Apresoline TAB] 100 mg PO Q8HR 06/09/19 06/09/19 Unknown History Active Meds: Active Medications Acetaminophen (Tylenol) 650 mg PO Q4H PRN PRN Reason: Pain MILD(1-3)/Fever >100.5/GALVEZ Carvedilol (Coreg) 6.25 mg PO BID BHARGAVI Last Admin: 06/09/19 10:09 Dose: 6.25 mg Documented by: Citalopram Hydrobromide (Celexa) 20 mg PO QDAY [facility] Last Admin: 06/09/19 10:09 Dose: 20 mg Documented by: Diphenhydramine HCl (Benadryl) 50 mg PO QHS PRN PRN Reason: Insomnia Loperamide HCl (Imodium) 2 mg PO Q3H PRN PRN Reason: Loose Stool Nifedipine (Procardia Xl) 90 mg PO QDAY@0800 [facility] Last Admin: 06/09/19 10:09 Dose: 90 mg Documented by: Ondansetron HCl (Zofran) 4 mg IV Q8H PRN PRN Reason: Nausea And Vomiting Pregabalin (Pregabalin) 75 mg PO BID [facility] Last Admin: 06/09/19 10:09 Dose: 75 mg Documented by: Sodium Chloride (Sodium Chloride Flush Syringe 10 Ml) 10 ml IV BID [facility] Last Admin: 06/09/19 10:10 Dose: 10 ml Documented by: Sodium Chloride (Sodium Chloride Flush Syringe 10 Ml) 10 ml IV PRN PRN PRN Reason: LINE FLUSH Review of Systems All systems: negative Exam - Vital Signs Vital signs: Vital Signs Temp Pulse Resp BP Pulse Ox 97.7 F 60 18 132/71 96 06/08/19 20:48 06/08/19 20:48 06/08/19 20:48 06/08/19 20:48 06/08/19 20:48 - General Appearance General appearance: well-developed, well-nourished EENT: ATNC Respiratory: Decreased Breath Sounds Heart: regular, S1S2 Gastrointestinal: Present: other (distended). Absent: tenderness Integumentary: no rash, warm and dry Neurologic: no focal deficit, alert and oriented x3 Musculoskeletal: Present: other (1+ edema) Psychiatric: cooperative Results - Lab Results 06/09/19 04:47 06/09/19 04:47 Most recent lab results Calcium 8.0 mg/dL (8.4-10.2) L 06/09/19 04:47 Assessment and Plan Impression: * Acute kidney injury secondary to decreased effective circulatory volume vs progression of chronic kidney disease --Hx of DEBO/fluid overload requiring ultrafiltration (May 2017) --SCr 1.7mg/dL (May 2017) * Fluid overload * Hyperkalemia * Metabolic acidosis * Cardiomyopathy * Type II DM * Hypertension * Anemia secondary to CKD vs other * Medical noncompliance Plan: * Renal prognosis is guarded. No acute need for renal replacement therapy at this time * Continue IV diuresis * Strict I/O, daily weights * Medical management of electrolytes * Start NaBicarb TID * Cardiology following. TTE ordered * Dose medications for renal function * Avoid nephrotoxins * AM labs
[2019-06-09] MEDS: FUROSEMIDE 40 MG/4 ML INJ IV SCH (17:19)
[2019-06-09] MEDS: SODIUM BICARBONATE 650 MG TAB PO SCH (21:15)
[2019-06-10 06:31] LABS: Basophils # (Auto) 0.1 K/mm3 (0.0-0.1); Basophils % (Auto) 1.5 % (0.0-1.8); Eosinophils # (Auto) 0.2 K/mm3 (0.0-0.4); Eosinophils % (Auto) 3.7 % (0.0-4.3); Hematocrit 29.6 % (35.5-45.6); Hemoglobin 9.6 gm/dl (11.8-15.2); Lymphocytes % (Auto) 20.3 % (13.4-35.0); Mean Corpuscular HGB Conc 33 % (32-34); Mean Corpuscular Volume 85 fl (84-94); Monocytes # (Auto) 0.7 K/mm3 (0.0-0.8); Monocytes % (Auto) 13.9 % (0.0-7.3); Platelet Count 128 K/mm3 (140-440); Red Blood Count 3.49 M/mm3 (3.65-5.03); Red Cell Distribution Width 15.4 % (13.2-15.2)
[2019-06-10 06:49] LABS: % Iron Saturation 15.74 %; Calcium 7.5 mg/dL (8.4-10.2)
[2019-06-10] MEDS: FUROSEMIDE 40 MG/4 ML INJ IV SCH ×2 (07:00→17:49)
[2019-06-10] MEDS: NIFEdipine XL 90 MG TAB PO SCH (09:28)
[2019-06-10] MEDS: SODIUM BICARBONATE 650 MG TAB PO SCH ×3 (09:28→21:20)
[2019-06-10] MEDS: PREGABALIN 75 MG CAP PO SCH ×2 (09:29→22:50)
[2019-06-10] MEDS: CITALOPRAM 20 MG TAB PO SCH (09:29)
[2019-06-10] MEDS: carvediloL 6.25 MG TAB PO SCH ×2 (09:30→22:50)
--- NOTE | 2019-06-10 09:37 | Progress Note ---
Assessment and Plan Impression: * Acute kidney injury secondary to decreased effective circulatory volume vs progression of chronic kidney disease --Hx of DEBO/fluid overload requiring ultrafiltration (May 2017) --SCr 1.7mg/dL (May 2017) * Fluid overload * Hyperkalemia * Metabolic acidosis * Cardiomyopathy * Type II DM * Hypertension * Anemia secondary to CKD vs other * Medical noncompliance Plan: * Renal prognosis is guarded. No acute need for renal replacement therapy at this time * Continue IV diuresis - decrease to 40mg IV daily * Strict I/O, daily weights ordered but not documented * Cardiology following. TTE ordered/pending * Medical management of electrolytes * Continue NaBicarb TID * Dose medications for renal function * Avoid nephrotoxins * AM labs Subjective Date of service: 06/10/19 Interval history: Patient feels SOB improved. Reports continued abd distention. Objective - Vital Signs Vital signs: Vital Signs - 12hr 06/09/19 06/09/19 06/10/19 22:00 22:44 00:14 Temperature 98.5 F Pulse Rate 63 62 Pulse Rate [ 70 From Monitor] Pulse Rate [ 63 Left Radial] Pulse Rate [ 63 Right Radial] Respiratory 20 16 Rate Blood Pressure 119/65 128/72 O2 Sat by Pulse 94 94 Oximetry 06/10/19 06/10/19 06/10/19 02:00 08:29 09:19 Temperature 97.8 F Pulse Rate 62 67 Pulse Rate [ From Monitor] Pulse Rate [ 63 Left Radial] Pulse Rate [ Right Radial] Respiratory 20 18 Rate Blood Pressure 155/76 O2 Sat by Pulse 91 Oximetry 06/10/19 09:30 Temperature Pulse Rate 67 Pulse Rate [ From Monitor] Pulse Rate [ Left Radial] Pulse Rate [ Right Radial] Respiratory Rate Blood Pressure 155/76 O2 Sat by Pulse Oximetry - General Appearance General appearance: well-developed, well-nourished EENT: ATNC Respiratory: Present: Clear to Ascultation Cardiology: regular, S1S2 Gastrointestinal: no tenderness, distended Integumentary: warm and dry Neurologic: no focal deficit, alert and oriented x3 Psychiatric: cooperative - Lab 06/10/19 05:41 06/10/19 05:41 Most recent lab results Calcium 7.5 mg/dL (8.4-10.2) L 06/10/19 05:41 Medications & Allergies - Medications Allergies/Adverse Reactions: Allergies No Known Allergies Allergy (Unverified 01/04/17 08:05) Home Medications: Home Medications Medication Instructions Recorded Confirmed Last Taken Type Pregabalin 75 mg PO BID #60 capsule 06/03/17 06/09/19 Unknown Rx carvediloL [Coreg] 6.25 mg PO BID #60 tablet 06/03/17 06/09/19 Unknown Rx Bumetanide 2 mg PO QDAY 06/09/19 06/09/19 Unknown History Citalopram [celeXA] 20 mg PO QDAY 06/09/19 06/09/19 Unknown History Loperamide [Imodium] 2 mg PO PRN PRN 06/09/19 06/09/19 Unknown History NIFEdipine [Nifedipine ER] 90 mg PO QDAY 06/09/19 06/09/19 Unknown History diphenhydrAMINE [Benadryl CAP] 50 mg PO QHS PRN 06/09/19 06/09/19 Unknown History hydrALAZINE [Apresoline TAB] 100 mg PO Q8HR 06/09/19 06/09/19 Unknown History Active Medications: Generic Name Dose Route Start Last Admin Trade Name Freq PRN Reason Stop Dose Admin Acetaminophen 650 mg 06/09/19 04:25 Tylenol PO Q4H PRN Pain MILD(1-3)/Fever >100.5/GALVEZ Carvedilol 6.25 mg 06/09/19 10:00 06/10/19 09:30 Coreg PO 6.25 mg BID BHARGAVI Administration Citalopram Hydrobromide 20 mg 06/09/19 10:00 06/10/19 09:29 Celexa PO 20 mg QDAY BHARGAVI Administration Diphenhydramine HCl 50 mg 06/09/19 04:23 Benadryl PO QHS PRN Insomnia Furosemide 40 mg 06/09/19 18:00 06/10/19 07:00 Lasix IV 40 mg 0600,1800 BHARGAVI Administration Loperamide HCl 2 mg 06/09/19 04:23 Imodium PO Q3H PRN Loose Stool Nifedipine 90 mg 06/09/19 08:00 06/10/19 09:28 Procardia Xl PO 90 mg QDAY@0800 BHARGAVI Administration Ondansetron HCl 4 mg 06/09/19 04:25 Zofran IV Q8H PRN Nausea And Vomiting Pregabalin 75 mg 06/09/19 10:00 06/10/19 09:29 Pregabalin PO 75 mg BID BHARGAVI Administration Sodium Bicarbonate 650 mg 06/09/19 20:00 06/10/19 09:28 Sodium Bicarbonate PO 650 mg TID BHARGAVI Administration Sodium Chloride 10 ml 06/09/19 10:00 06/10/19 09:30 Sodium Chloride Flush Syringe 10 Ml IV 10 ml BID BHARGAVI Administration Sodium Chloride 10 ml 06/09/19 04:25 Sodium Chloride Flush Syringe 10 Ml IV PRN PRN LINE FLUSH
--- NOTE | 2019-06-10 10:38 | Progress Note ---
Assessment and Plan Assessment and plan: --Acute on chronic renal failure; worsening renal function Nephrology following, check ultrasound of the kidneys Avoid nephrotoxins. Monitor renal function --Acute on chronic systolic congestive heart failure EF 15 - 20%, cardiology following, diuretics Beta-blockers no CHRISTINA inhibitors in view of renal failure Input output monitoring, low-sodium diet, fluid restriction --Chest pain /NSTEMI Monitor cardiac enzymes, cardiology following Continue cardiac medications --Hyperkalemia; corrected Monitor electrolytes --Thrombocytopenia Continue to monitor, hematology consult if needed --Hypertensive Moderate control, continue current antihypertensives PRN medications --Diabetes mellitus type 2. Accu-Chek sliding scale coverage ADA diet Insulin as needed --Hyperlipidemia ; On statin. --History of hepatitis C; Stable --DVT prophylaxis; heparin renal dose Monitor closely and adjust management as needed Plan of care reviewed with the patient and his nurse Evs Tech recommendations noted and appreciated History Interval history: Patient seen and examined at bedside this morning Patient's chart and the medical records reviewed Patient complains of mild shortness of breath Vital signs reviewed Hospitalist Physical - Constitutional Vitals: Temp Pulse Resp BP Pulse Ox 97.8 F 67 18 155/76 91 06/10/19 09:19 06/10/19 09:30 06/10/19 09:19 06/10/19 09:30 06/10/19 09:19 General appearance: Present: mild distress, well-nourished - EENT Eyes: Present: PERRL, EOM intact - Neck Neck: Present: supple, normal ROM - Respiratory Respiratory effort: normal Respiratory: bilateral: diminished, rales, negative: rhonchi, wheezing - Cardiovascular Rhythm: regular Heart Sounds: Present: S1 & S2 - Extremities Extremities: no ischemia, No edema - Abdominal General gastrointestinal: soft, non-tender, non-distended, normal bowel sounds - Integumentary Integumentary: Present: clear, warm - Psychiatric Psychiatric: appropriate mood/affect, cooperative - Neurologic Neurologic: moves all extremities Results - Labs CBC & Chem 7: 06/10/19 05:41 06/10/19 05:41 Labs: Laboratory Last Values WBC 5.0 K/mm3 (4.5-11.0) 06/10/19 05:41 RBC 3.49 M/mm3 (3.65-5.03) L 06/10/19 05:41 Hgb 9.6 gm/dl (11.8-15.2) L 06/10/19 05:41 Hct 29.6 % (35.5-45.6) L 06/10/19 05:41 MCV 85 fl (84-94) 06/10/19 05:41 MCH 28 pg (28-32) 06/10/19 05:41 MCHC 33 % (32-34) 06/10/19 05:41 RDW 15.4 % (13.2-15.2) H 06/10/19 05:41 Plt Count 128 K/mm3 (140-440) L 06/10/19 05:41 Lymph % (Auto) 20.3 % (13.4-35.0) 06/10/19 05:41 [place] % (Auto) 13.9 % (0.0-7.3) H 06/10/19 05:41 Eos % (Auto) 3.7 % (0.0-4.3) 06/10/19 05:41 Baso % (Auto) 1.5 % (0.0-1.8) 06/10/19 05:41 Lymph # 1.0 K/mm3 (1.2-5.4) L 06/10/19 05:41 [place] # 0.7 K/mm3 (0.0-0.8) 06/10/19 05:41 Eos # 0.2 K/mm3 (0.0-0.4) 06/10/19 05:41 Baso # 0.1 K/mm3 (0.0-0.1) 06/10/19 05:41 Seg Neutrophils % 60.6 % (40.0-70.0) 06/10/19 05:41 Seg Neutrophils # 3.0 K/mm3 (1.8-7.7) 06/10/19 05:41 Sodium 139 mmol/L (137-145) 06/10/19 05:41 Potassium 4.8 mmol/L (3.6-5.0) 06/10/19 05:41 Chloride 107.1 mmol/L (98-107) H 06/10/19 05:41 Carbon Dioxide 16 mmol/L (22-30) L 06/10/19 05:41 Anion Gap 21 mmol/L 06/10/19 05:41 BUN 52 mg/dL (9-20) H 06/10/19 05:41 Creatinine 3.7 mg/dL (0.8-1.5) H 06/10/19 05:41 Estimated GFR 17 ml/min 06/10/19 05:41 BUN/Creatinine Ratio 14 % 06/10/19 05:41 Glucose 171 mg/dL (75-100) H 06/10/19 05:41 POC Glucose 156 (70-105) H 06/09/19 21:28 Calcium 7.5 mg/dL (8.4-10.2) L 06/10/19 05:41 Iron 37 ug/dL (49-181) L 06/10/19 05:41 TIBC 235 mcg/dL (250-450) L 06/10/19 05:41 % Saturation 15.74 % 06/10/19 05:41 Transferrin 215 mg/dl (180-329) 06/10/19 05:41 Ferritin 61.4 ng/mL (13.0-400.0) 06/10/19 05:41 Total Bilirubin 0.20 mg/dL (0.1-1.2) 06/08/19 22:19 AST 18 units/L (5-40) 06/08/19 22:19 ALT 7 units/L (7-56) 06/08/19 22:19 Alkaline Phosphatase 85 units/L (35-129) 06/08/19 22:19 Total Creatine Kinase 300 units/L (55-170) H 06/09/19 13:34 CK-MB (CK-2) 7.2 ng/mL (0.0-4.0) H 06/09/19 13:34 CK-MB (CK-2) Rel Index 2.4 (0-4) 06/09/19 13:34 Troponin T 0.104 ng/mL (0.00-0.029) H* 06/09/19 13:34 NT-Pro-B Natriuret Pep 41889 pg/mL (0-900) H 06/08/19 22:19 Total Protein 6.9 g/dL (6.3-8.2) 06/08/19 22:19 Albumin 3.4 g/dL (3.9-5) L 06/08/19 22:19 Albumin/Globulin Ratio 1.0 % 06/08/19 22:19 Triglycerides 78 mg/dL (2-149) 06/08/19 22: Cholesterol 145 mg/dL (50-199) 06/08/19 22:19 LDL Cholesterol Direct 88 mg/dL (50-130) 06/08/19 22: HDL Cholesterol 43 mg/dL (40-59) 06/08/19 22: Cholesterol/HDL Ratio 3.37 % 06/08/19 22: Urine Color Yellow (Yellow) 06/08/19 Unknown Urine Turbidity Clear (Clear) 06/08/19 Unknown Urine pH 5.0 (5.0-7.0) 06/08/19 Unknown Ur Specific [place] 1.009 (1.003-1.030) 06/08/19 Unknown Urine Protein 100 mg/dl mg/dL (Negative) 06/08/19 Unknown Urine Glucose (UA) Neg mg/dL (Negative) 06/08/19 Unknown Urine Ketones Neg mg/dL (Negative) 06/08/19 Unknown Urine Blood Neg (Negative) 06/08/19 Unknown Urine Nitrite Neg (Negative) 06/08/19 Unknown Urine Bilirubin Neg (Negative) 06/08/19 Unknown Urine Urobilinogen < 2.0 mg/dL (<2.0) 06/08/19 Unknown Ur Leukocyte Esterase Neg (Negative) 06/08/19 Unknown Urine WBC (Auto) 1.0 /HPF (0.0-6.0) 06/08/19 Unknown Urine RBC (Auto) 2.0 /HPF (0.0-6.0) 06/08/19 Unknown Urine Bacteria (Auto) 1+ /HPF (Negative) 06/08/19 Unknown Hyaline Casts 10 /LPF 06/08/19 Unknown Urine Mucus Few /HPF 06/08/19 Unknown Active Medications - Current Medications Current Medications: Generic Name Dose Route Start Last Admin Trade Name Freq PRN Reason Stop Dose Admin Acetaminophen 650 mg 06/09/19 04:25 Tylenol PO Q4H PRN Pain MILD(1-3)/Fever >100.5/GALVEZ Carvedilol 6.25 mg 06/09/19 10:00 06/10/19 09:30 Coreg PO 6.25 mg BID BHARGAVI Administration Citalopram Hydrobromide 20 mg 06/09/19 10:00 06/10/19 09:29 Celexa PO 20 mg QDAY BHARGAVI Administration Diphenhydramine HCl 50 mg 06/09/19 04:23 Benadryl PO QHS PRN Insomnia Furosemide 40 mg 06/09/19 18:00 06/10/19 07:00 Lasix IV 40 mg 0600,1800 BHARGAVI Administration Loperamide HCl 2 mg 06/09/19 04:23 Imodium PO Q3H PRN Loose Stool Nifedipine 90 mg 06/09/19 08:00 06/10/19 09:28 Procardia Xl PO 90 mg QDAY@0800 BHARGAVI Administration Ondansetron HCl 4 mg 06/09/19 04:25 Zofran IV Q8H PRN Nausea And Vomiting Pregabalin 75 mg 06/09/19 10:00 06/10/19 09:29 Pregabalin PO 75 mg BID BHARGAVI Administration Sodium Bicarbonate 650 mg 06/09/19 20:00 06/10/19 09:28 Sodium Bicarbonate PO 650 mg TID BHARGAVI Administration Sodium Chloride 10 ml 06/09/19 10:00 06/10/19 09:30 Sodium Chloride Flush Syringe 10 Ml IV 10 ml BID BHARGAVI Administration Sodium Chloride 10 ml 06/09/19 04:25 Sodium Chloride Flush Syringe 10 Ml IV PRN PRN LINE FLUSH
--- NOTE | 2019-06-10 17:54 | Progress Note ---
Assessment and Plan - Patient Problems (1) Acute on chronic systolic heart failure Current Visit: Yes Status: Acute Plan to address problem: Continue optimal medical therapy for acute exacerbation of chronic systolic left ventricular failure. Subjective Date of service: 06/10/19 Interval history: No cardiac complaints, comfortable, in no acute distress. Objective Vital Signs Temp Pulse Pulse Pulse Pulse Resp BP 06/10/19 16:44 98.5 F 58 L 18 122/67 06/10/19 13:35 98.3 F 60 18 127/68 06/10/19 09:30 67 155/76 06/10/19 09:19 97.8 F 67 18 155/76 06/10/19 08:30 68 06/10/19 08:29 63 20 06/10/19 02:00 62 06/10/19 00:14 98.5 F 62 16 128/72 06/09/19 22:44 63 119/65 06/09/19 22:00 70 63 63 20 06/09/19 19:57 98.0 F 65 20 108/53 06/09/19 18:00 88 Pulse Ox 06/10/19 16:44 92 06/10/19 13:35 92 06/10/19 09:30 06/10/19 09:19 91 06/10/19 08:30 06/10/19 08:29 06/10/19 02:00 06/10/19 00:14 94 06/09/19 22:44 06/09/19 22:00 94 06/09/19 19:57 94 06/09/19 18:00 - Physical Examination General: No Apparent Distress HEENT: Positive: PERRL Neck: Positive: trachea midline Cardiac: Positive: Reg Rate and Rhythm Lungs: Positive: Decreased Breath Sounds Neuro: Positive: Grossly Intact Abdomen: Positive: Soft Skin: Positive: Clear Extremities: Present: edema (trace) - Labs and Meds CBC 06/10/19 Range/Units 05:41 WBC 5.0 (4.5-11.0) K/mm3 RBC 3.49 L (3.65-5.03) M/mm3 Hgb 9.6 L (11.8-15.2) gm/dl Hct 29.6 L (35.5-45.6) % Plt Count 128 L (140-440) K/mm3 Lymph # 1.0 L (1.2-5.4) K/mm3 [place] # 0.7 (0.0-0.8) K/mm3 Eos # 0.2 (0.0-0.4) K/mm3 Baso # 0.1 (0.0-0.1) K/mm3 Comprehensive Metabolic Panel 06/10/19 Range/Units 05:41 Sodium 139 (137-145) mmol/L Potassium 4.8 (3.6-5.0) mmol/L Chloride 107.1 H (98-107) mmol/L Carbon Dioxide 16 L (22-30) mmol/L BUN 52 H (9-20) mg/dL Creatinine 3.7 H (0.8-1.5) mg/dL Glucose 171 H (75-100) mg/dL Calcium 7.5 L (8.4-10.2) mg/dL - Imaging and Cardiology EKG: image reviewed
[2019-06-11] MEDS ORDERED: FUROSEMIDE 40 MG/4 ML INJ IV SCH (06:00)
[2019-06-11 06:36] LABS: Basophils # (Auto) 0.1 K/mm3 (0.0-0.1); Basophils % (Auto) 1.6 % (0.0-1.8); Eosinophils # (Auto) 0.2 K/mm3 (0.0-0.4); Eosinophils % (Auto) 5.9 % (0.0-4.3); Hematocrit 30.3 % (35.5-45.6); Hemoglobin 9.8 gm/dl (11.8-15.2); Lymphocytes # (Auto) 0.8 K/mm3 (1.2-5.4); Lymphocytes % (Auto) 21.1 % (13.4-35.0); Mean Corpuscular HGB Conc 32 % (32-34); Mean Corpuscular Volume 85 fl (84-94); Monocytes # (Auto) 0.6 K/mm3 (0.0-0.8); Monocytes % (Auto) 15.9 % (0.0-7.3); Platelet Count 122 K/mm3 (140-440); Red Blood Count 3.56 M/mm3 (3.65-5.03)
[2019-06-11 06:53] LABS: Creatine Kinase MB 5.5 ng/mL (0.0-4.0)
[2019-06-11 06:56] LABS: Calcium 7.4 mg/dL (8.4-10.2)
[2019-06-11] MEDS: SODIUM BICARBONATE 650 MG TAB PO SCH ×3 (09:00→21:48)
[2019-06-11] MEDS: NIFEdipine XL 90 MG TAB PO SCH (09:00)
[2019-06-11] MEDS: CITALOPRAM 20 MG TAB PO SCH (09:53)
[2019-06-11] MEDS: carvediloL 6.25 MG TAB PO SCH ×2 (09:54→21:48)
[2019-06-11] MEDS: PREGABALIN 75 MG CAP PO SCH ×2 (09:54→21:48)
--- NOTE | 2019-06-11 10:59 | Progress Note ---
Assessment and Plan Volume overload Secondary to noncompliance with outpatient medical therapy Acute systolic heart failure Cardiomyopathy, unspecified Chronic renal failure Requiring transient HD in the past Hypertension Diabetes No ischemia by MPI 12/2016. LVEF 45-50% by echo 05/2017. Echo this admission showing LVEF 15-20% with moderate to severe TR Plan: Lexiscan in am Continue IV diuresis Monitor renal function Stressed compliance with meds and follow-up Subjective Date of service: 06/11/19 Principal diagnosis: CHF Interval history: Patient is doing well this morning He denies shortness of breath Objective Vital Signs Temp Pulse Pulse Pulse Pulse Resp BP 06/11/19 09:54 65 159/86 06/11/19 09:37 06/11/19 08:32 97.9 F 64 18 149/80 06/11/19 05:03 97.9 F 60 16 118/57 06/11/19 00:52 98.0 F 63 16 140/74 06/10/19 22:50 63 132/70 06/10/19 22:00 61 06/10/19 20:50 98.0 F 61 16 135/72 06/10/19 20:00 61 61 61 20 06/10/19 16:44 98.5 F 58 L 18 122/67 06/10/19 13:35 98.3 F 60 18 127/68 Pulse Ox 06/11/19 09:54 06/11/19 09:37 99 06/11/19 08:32 93 06/11/19 05:03 96 06/11/19 00:52 91 06/10/19 22:50 06/10/19 22:00 93 06/10/19 20:50 87 06/10/19 20:00 06/10/19 16:44 92 06/10/19 13:35 92 - Physical Examination General: No Apparent Distress HEENT: Positive: PERRL Neck: Positive: trachea midline Cardiac: Positive: Reg Rate and Rhythm Lungs: Positive: Normal Exam Neuro: Positive: Grossly Intact Abdomen: Positive: Soft Skin: Positive: Clear Extremities: Present: edema (trace) - Labs and Meds Cardiac Enzymes 06/11/19 Range/Units 05:33 CK-MB (CK-2) 5.5 H (0.0-4.0) ng/mL CBC 06/11/19 Range/Units 05:33 WBC 3.6 L (4.5-11.0) K/mm3 RBC 3.56 L (3.65-5.03) M/mm3 Hgb 9.8 L (11.8-15.2) gm/dl Hct 30.3 L (35.5-45.6) % Plt Count 122 L (140-440) K/mm3 Lymph # 0.8 L (1.2-5.4) K/mm3 [place] # 0.6 (0.0-0.8) K/mm3 Eos # 0.2 (0.0-0.4) K/mm3 Baso # 0.1 (0.0-0.1) K/mm3 Comprehensive Metabolic Panel 06/11/19 Range/Units 05:33 Sodium 141 (137-145) mmol/L Potassium 4.6 (3.6-5.0) mmol/L Chloride 108.9 H (98-107) mmol/L Carbon Dioxide 19 L (22-30) mmol/L BUN 57 H (9-20) mg/dL Creatinine 4.1 H (0.8-1.5) mg/dL Glucose 126 H (75-100) mg/dL Calcium 7.4 L (8.4-10.2) mg/dL - Imaging and Cardiology EKG: image reviewed
[2019-06-11] MEDS ORDERED: LORATADINE/PSEUDOEPHEDRINE 10-240 MG TAB 24HR PO ONE (15:05)
--- NOTE | 2019-06-11 15:07 | Progress Note ---
Assessment and Plan Assessment and plan: --Sinus congestion/sinusitis Empiric antibiotics with Augmentin Antihistamine loratadine --Acute on chronic renal failure; worsening renal function Nephrology following, check ultrasound of the kidneys Avoid nephrotoxins. Monitor renal function --Acute on chronic systolic congestive heart failure EF 15 - 20%, cardiology following, diuretics Beta-blockers no CHRISTINA inhibitors in view of renal failure Input output monitoring, low-sodium diet, fluid restriction --Chest pain /NSTEMI Monitor cardiac enzymes, cardiology following Continue cardiac medications --Hyperkalemia; corrected Monitor electrolytes --Thrombocytopenia Continue to monitor, hematology consult if needed --Hypertensive Moderate control, continue current antihypertensives PRN medications --Diabetes mellitus type 2. Accu-Chek sliding scale coverage ADA diet Insulin as needed --Hyperlipidemia ; On statin. --History of hepatitis C; Stable --DVT prophylaxis; heparin renal dose Monitor closely and adjust management as needed Plan of care reviewed with the patient and his nurse Shovel Loader Operator recommendations noted and appreciated History Interval history: Patient seen and examined at the bedside medical records reviewed Patient complains of some sinus congestion and sinus pain Denies chest pain or shortness of breath Scheduled for stress test tomorrow Hospitalist Physical - Constitutional Vitals: Temp Pulse Resp BP Pulse Ox 98.0 F 59 L 18 150/83 93 06/11/19 12:00 06/11/19 12:00 06/11/19 12:00 06/11/19 12:00 06/11/19 12:00 General appearance: Present: mild distress, well-nourished - EENT Eyes: Present: PERRL, EOM intact - Neck Neck: Present: supple, normal ROM - Respiratory Respiratory effort: normal Respiratory: bilateral: diminished, negative: rales, rhonchi, wheezing - Cardiovascular Rhythm: regular Heart Sounds: Present: S1 & S2 - Extremities Extremities: no ischemia, No edema - Abdominal General gastrointestinal: soft, non-tender, non-distended, normal bowel sounds - Integumentary Integumentary: Present: clear, warm - Psychiatric Psychiatric: appropriate mood/affect, cooperative - Neurologic Neurologic: CNII-XII intact, moves all extremities Results - Labs CBC & Chem 7: 06/12/19 04:59 06/12/19 04:59 Labs: Laboratory Last Values WBC 3.6 K/mm3 (4.5-11.0) L 06/11/19 05:33 RBC 3.56 M/mm3 (3.65-5.03) L 06/11/19 05:33 Hgb 9.8 gm/dl (11.8-15.2) L 06/11/19 05:33 Hct 30.3 % (35.5-45.6) L 06/11/19 05:33 MCV 85 fl (84-94) 06/11/19 05:33 MCH 28 pg (28-32) 06/11/19 05:33 MCHC 32 % (32-34) 06/11/19 05:33 RDW 15.0 % (13.2-15.2) 06/11/19 05:33 Plt Count 122 K/mm3 (140-440) L 06/11/19 05:33 Lymph % (Auto) 21.1 % (13.4-35.0) 06/11/19 05:33 [place] % (Auto) 15.9 % (0.0-7.3) H 06/11/19 05:33 Eos % (Auto) 5.9 % (0.0-4.3) H 06/11/19 05:33 Baso % (Auto) 1.6 % (0.0-1.8) 06/11/19 05:33 Lymph # 0.8 K/mm3 (1.2-5.4) L 06/11/19 05:33 [place] # 0.6 K/mm3 (0.0-0.8) 06/11/19 05:33 Eos # 0.2 K/mm3 (0.0-0.4) 06/11/19 05:33 Baso # 0.1 K/mm3 (0.0-0.1) 06/11/19 05:33 Seg Neutrophils % 55.5 % (40.0-70.0) 06/11/19 05:33 Seg Neutrophils # 2.0 K/mm3 (1.8-7.7) 06/11/19 05:33 Sodium 141 mmol/L (137-145) 06/11/19 05:33 Potassium 4.6 mmol/L (3.6-5.0) 06/11/19 05:33 Chloride 108.9 mmol/L (98-107) H 06/11/19 05:33 Carbon Dioxide 19 mmol/L (22-30) L 06/11/19 05:33 Anion Gap 18 mmol/L 06/11/19 05:33 BUN 57 mg/dL (9-20) H 06/11/19 05:33 Creatinine 4.1 mg/dL (0.8-1.5) H 06/11/19 05:33 Estimated GFR 15 ml/min 06/11/19 05:33 BUN/Creatinine Ratio 14 % 06/11/19 05:33 Glucose 126 mg/dL (75-100) H 06/11/19 05:33 POC Glucose 135 (70-105) H 06/11/19 12:09 Calcium 7.4 mg/dL (8.4-10.2) L 06/11/19 05:33 Iron 37 ug/dL (49-181) L 06/10/19 05:41 TIBC 235 mcg/dL (250-450) L 06/10/19 05:41 % Saturation 15.74 % 06/10/19 05:41 Transferrin 215 mg/dl (180-329) 06/10/19 05:41 Ferritin 61.4 ng/mL (13.0-400.0) 06/10/19 05:41 Total Bilirubin 0.20 mg/dL (0.1-1.2) 06/08/19 22:19 AST 18 units/L (5-40) 06/08/19 22:19 ALT 7 units/L (7-56) 06/08/19 22:19 Alkaline Phosphatase 85 units/L (35-129) 06/08/19 22:19 Total Creatine Kinase 246 units/L (55-170) H 06/11/19 05:33 CK-MB (CK-2) 5.5 ng/mL (0.0-4.0) H 06/11/19 05:33 CK-MB (CK-2) Rel Index 2.2 (0-4) 06/11/19 05:33 Troponin T 0.091 ng/mL (0.00-0.029) H 06/11/19 05:33 NT-Pro-B Natriuret Pep 70567 pg/mL (0-900) H 06/08/19 22:19 Total Protein 6.9 g/dL (6.3-8.2) 06/08/19 22:19 Albumin 3.4 g/dL (3.9-5) L 06/08/19 22: Albumin/Globulin Ratio 1.0 % 06/08/19 22: Triglycerides 78 mg/dL (2-149) 06/08/19 22: Cholesterol 145 mg/dL (50-199) 06/08/19 22: LDL Cholesterol Direct 88 mg/dL (50-130) 06/08/19 22: HDL Cholesterol 43 mg/dL (40-59) 06/08/19 22: Cholesterol/HDL Ratio 3.37 % 06/08/19 22:19 Urine Color Yellow (Yellow) 06/08/19 Unknown Urine Turbidity Clear (Clear) 06/08/19 Unknown Urine pH 5.0 (5.0-7.0) 06/08/19 Unknown Ur Specific [place] 1.009 (1.003-1.030) 06/08/19 Unknown Urine Protein 100 mg/dl mg/dL (Negative) 06/08/19 Unknown Urine Glucose (UA) Neg mg/dL (Negative) 06/08/19 Unknown Urine Ketones Neg mg/dL (Negative) 06/08/19 Unknown Urine Blood Neg (Negative) 06/08/19 Unknown Urine Nitrite Neg (Negative) 06/08/19 Unknown Urine Bilirubin Neg (Negative) 06/08/19 Unknown Urine Urobilinogen < 2.0 mg/dL (<2.0) 06/08/19 Unknown Ur Leukocyte Esterase Neg (Negative) 06/08/19 Unknown Urine WBC (Auto) 1.0 /HPF (0.0-6.0) 06/08/19 Unknown Urine RBC (Auto) 2.0 /HPF (0.0-6.0) 06/08/19 Unknown Urine Bacteria (Auto) 1+ /HPF (Negative) 06/08/19 Unknown Hyaline Casts 10 /LPF 06/08/19 Unknown Urine Mucus Few /HPF 06/08/19 Unknown Active Medications - Current Medications Current Medications: Generic Name Dose Route Start Last Admin Trade Name Freq PRN Reason Stop Dose Admin Acetaminophen 650 mg 06/09/19 04:25 Tylenol PO Q4H PRN Pain MILD(1-3)/Fever >100.5/GALVEZ Amoxicillin/Clavulanate Potassium 1 each 06/11/19 22:00 Augmentin 875 Mg PO Q12HR BHARGAVI Carvedilol 6.25 mg 06/09/19 10:00 06/11/19 09:54 Coreg PO 6.25 mg BID BHARGAVI Administration Citalopram Hydrobromide 20 mg 06/09/19 10:00 06/11/19 09:53 Celexa PO 20 mg QDAY BHARGAVI Administration Diphenhydramine HCl 50 mg 06/09/19 04:23 Benadryl PO QHS PRN Insomnia Furosemide 40 mg 06/11/19 06:00 06/11/19 06:30 Lasix IV 40 mg DAILY@0600 [facility] Administration Loperamide HCl 2 mg 06/09/19 04:23 Imodium PO Q3H PRN Loose Stool Loratadine/Pseudoephedrine Sulfate 1 each 06/12/19 10:00 Claritin-D 24hr PO Q24HR BHARGAVI Loratadine/Pseudoephedrine Sulfate 1 each 06/11/19 15:05 Claritin-D 24hr PO 06/11/19 15:06 ONCE ONE Nifedipine 90 mg 06/09/19 08:00 06/11/19 09:00 Procardia Xl PO 90 mg QDAY@0800 [facility] Administration Ondansetron HCl 4 mg 06/09/19 04:25 Zofran IV Q8H PRN Nausea And Vomiting Pregabalin 75 mg 06/09/19 10:00 06/11/19 09:54 Pregabalin PO 75 mg BID BHARGAVI Administration Sodium Bicarbonate 650 mg 06/09/19 20:00 06/11/19 09:00 Sodium Bicarbonate PO 650 mg TID BHARGAVI Administration Sodium Chloride 10 ml 06/09/19 10:00 06/11/19 09:54 Sodium Chloride Flush Syringe 10 Ml IV 10 ml BID BHARGAVI Administration Sodium Chloride 10 ml 06/09/19 04:25 Sodium Chloride Flush Syringe 10 Ml IV PRN PRN LINE FLUSH
--- NOTE | 2019-06-11 15:27 | Progress Note ---
Assessment and Plan Impression: * Acute kidney injury secondary to decreased effective circulatory volume vs progression of chronic kidney disease --Hx of DEBO/fluid overload requiring ultrafiltration (May 2017) --SCr 1.7mg/dL (May 2017) * Fluid overload * Hyperkalemia * Metabolic acidosis * Cardiomyopathy * Type II DM * Hypertension * Anemia secondary to CKD vs other * Medical noncompliance Plan: * Renal prognosis is guarded. No acute need for renal replacement therapy at this time * Change Lasix from IV to PO * Strict I/O * Cardiology following * Medical management of electrolytes * Continue NaBicarb TID * Dose medications for renal function * Avoid nephrotoxins * AM labs Subjective Date of service: 06/11/19 Principal diagnosis: CHF Interval history: Patient has no complaints today. Objective - Vital Signs Vital signs: Vital Signs - 12hr 06/11/19 06/11/19 06/11/19 05:03 08:32 09:37 Temperature 97.9 F 97.9 F Pulse Rate 60 64 Respiratory 16 18 Rate Blood Pressure 118/57 149/80 O2 Sat by Pulse 96 93 99 Oximetry 06/11/19 06/11/19 06/11/19 09:54 09:55 12:00 Temperature 98.0 F Pulse Rate 65 64 59 L Respiratory 18 Rate Blood Pressure 159/86 159/86 150/83 O2 Sat by Pulse 94 93 Oximetry - General Appearance General appearance: well-developed, well-nourished EENT: ATNC Respiratory: Present: Clear to Ascultation Cardiology: regular, S1S2 Gastrointestinal: no tenderness Neurologic: no focal deficit, alert and oriented x3 Musculoskeletal: other (no edema) Psychiatric: cooperative - Lab 06/11/19 05:33 06/11/19 05:33 Most recent lab results Calcium 7.4 mg/dL (8.4-10.2) L 06/11/19 05:33 Medications & Allergies - Medications Allergies/Adverse Reactions: Allergies No Known Allergies Allergy (Unverified 01/04/17 08:05) Home Medications: Home Medications Medication Instructions Recorded Confirmed Last Taken Type Pregabalin 75 mg PO BID #60 capsule 06/03/17 06/09/19 Unknown Rx carvediloL [Coreg] 6.25 mg PO BID #60 tablet 06/03/17 06/09/19 Unknown Rx Bumetanide 2 mg PO QDAY 06/09/19 06/09/19 Unknown History Citalopram [celeXA] 20 mg PO QDAY 06/09/19 06/09/19 Unknown History Loperamide [Imodium] 2 mg PO PRN PRN 06/09/19 06/09/19 Unknown History NIFEdipine [Nifedipine ER] 90 mg PO QDAY 06/09/19 06/09/19 Unknown History diphenhydrAMINE [Benadryl CAP] 50 mg PO QHS PRN 06/09/19 06/09/19 Unknown History hydrALAZINE [Apresoline TAB] 100 mg PO Q8HR 06/09/19 06/09/19 Unknown History Active Medications: Generic Name Dose Route Start Last Admin Trade Name Freq PRN Reason Stop Dose Admin Acetaminophen 650 mg 06/09/19 04:25 Tylenol PO Q4H PRN Pain MILD(1-3)/Fever >100.5/GALVEZ Amoxicillin/Clavulanate Potassium 1 each 06/11/19 22:00 Augmentin 875 Mg PO Q12HR BHARGAVI Carvedilol 6.25 mg 06/09/19 10:00 06/11/19 09:54 Coreg PO 6.25 mg BID BHARGAVI Administration Citalopram Hydrobromide 20 mg 06/09/19 10:00 06/11/19 09:53 Celexa PO 20 mg QDAY BHARGAVI Administration Diphenhydramine HCl 50 mg 06/09/19 04:23 Benadryl PO QHS PRN Insomnia Furosemide 40 mg 06/11/19 06:00 06/11/19 06:30 Lasix IV 40 mg DAILY@0600 BHARGAVI Administration Loperamide HCl 2 mg 06/09/19 04:23 Imodium PO Q3H PRN Loose Stool Loratadine/Pseudoephedrine Sulfate 1 each 06/12/19 10:00 Claritin-D 24hr PO Q24HR BHARGAVI Loratadine/Pseudoephedrine Sulfate 1 each 06/11/19 15:05 Claritin-D 24hr PO 06/11/19 15:06 ONCE ONE Nifedipine 90 mg 06/09/19 08:00 06/11/19 09:00 Procardia Xl PO 90 mg QDAY@0800 BHARGAVI Administration Ondansetron HCl 4 mg 06/09/19 04:25 Zofran IV Q8H PRN Nausea And Vomiting Pregabalin 75 mg 06/09/19 10:00 06/11/19 09:54 Pregabalin PO 75 mg BID BHARGAVI Administration Sodium Bicarbonate 650 mg 06/09/19 20:00 06/11/19 09:00 Sodium Bicarbonate PO 650 mg TID BHARGAVI Administration Sodium Chloride 10 ml 06/09/19 10:00 06/11/19 09:54 Sodium Chloride Flush Syringe 10 Ml IV 10 ml BID BHARGAVI Administration Sodium Chloride 10 ml 06/09/19 04:25 Sodium Chloride Flush Syringe 10 Ml IV PRN PRN LINE FLUSH
[2019-06-11] MEDS: AMOXICILLIN/K CLAV 875/125MG TAB PO SCH (21:48)
[2019-06-12] MEDS: FUROSEMIDE 40 MG TAB PO SCH (05:43)
[2019-06-12 05:46] LABS: Basophils # (Auto) 0.1 K/mm3 (0.0-0.1); Basophils % (Auto) 1.2 % (0.0-1.8); Eosinophils # (Auto) 0.3 K/mm3 (0.0-0.4); Eosinophils % (Auto) 5.4 % (0.0-4.3); Hematocrit 29.7 % (35.5-45.6); Hemoglobin 9.9 gm/dl (11.8-15.2); Lymphocytes # (Auto) 0.7 K/mm3 (1.2-5.4); Lymphocytes % (Auto) 14.3 % (13.4-35.0); Mean Corpuscular HGB Conc 33 % (32-34); Mean Corpuscular Volume 85 fl (84-94); Monocytes # (Auto) 0.6 K/mm3 (0.0-0.8); Monocytes % (Auto) 11.8 % (0.0-7.3); Platelet Count 122 K/mm3 (140-440); Red Blood Count 3.51 M/mm3 (3.65-5.03); Red Cell Distribution Width 15.5 % (13.2-15.2)
[2019-06-12 06:06] LABS: Calcium 7.7 mg/dL (8.4-10.2)
[2019-06-12] MEDS ORDERED: REGADENOSON 0.4 MG/5 ML INJ IV ONE ×2 (08:08→08:22)
[2019-06-12] MEDS: SODIUM BICARBONATE 650 MG TAB PO SCH ×3 (10:00→21:23)
[2019-06-12] MEDS ORDERED: LORATADINE/PSEUDOEPHEDRINE 10-240 MG TAB 24HR PO SCH (10:00)
[2019-06-12] MEDS: NIFEdipine XL 90 MG TAB PO SCH (10:15)
[2019-06-12] MEDS: carvediloL 6.25 MG TAB PO SCH ×2 (10:15→21:24)
[2019-06-12] MEDS: CITALOPRAM 20 MG TAB PO SCH (10:15)
[2019-06-12] MEDS: PREGABALIN 75 MG CAP PO SCH ×2 (10:15→21:23)
[2019-06-12] MEDS: AMOXICILLIN/K CLAV 875/125MG TAB PO SCH (10:15)
--- NOTE | 2019-06-12 10:55 | Treadmill Report ---
MYOCARDIAL PERFUSION SCAN PROCEDURES PERFORMED: Lexiscan perfusion scan. FINDINGS: 1. Homogeneous uptake noted in the rest and stress images. Comparison of the rest and stress images revealed no fixed or reversible defects suggestive of infarct or ischemia. 2. Gated analysis reveals mildly reduced LV systolic function with global hypokinesis, EF 44%. IMPRESSION: 1. No evidence of significant ischemia. 2. Mildly reduced LV systolic function, EF 44%. [facility]# [id number] RR/NTS
--- NOTE | 2019-06-12 11:14 | Progress Note ---
Assessment and Plan Volume overload Secondary to noncompliance with outpatient medical therapy Acute systolic heart failure Cardiomyopathy, unspecified Chronic renal failure Requiring transient HD in the past Hypertension Diabetes No ischemia by MPI 12/2016. MPT 06/12/19 no ischemia EF 44% LVEF 45-50% by echo 05/2017. Echo this admission showing LVEF 15-20% with moderate to severe TR Plan: Diuretics changed to p.o. by renal Still has ascites suggestive of fluid overload Renal closely following Stressed compliance with meds and follow-up Subjective Date of service: 06/12/19 Principal diagnosis: CHF Interval history: Complaining of abdominal distention Objective Vital Signs Temp Pulse Pulse Pulse Pulse Resp BP 06/12/19 10:57 75 159/83 06/12/19 10:15 71 159/83 06/12/19 09:03 173/85 06/12/19 09:00 162/86 06/12/19 08:58 171/82 06/12/19 08:57 171/95 06/12/19 08:25 168/91 06/12/19 07:25 79 79 79 16 06/12/19 04:55 97.7 F 67 16 142/78 06/12/19 04:00 68 06/12/19 00:06 98.9 F 16 134/65 06/12/19 00:03 98.1 F 67 16 135/72 06/11/19 20:56 97.9 F 66 16 154/83 06/11/19 20:06 06/11/19 12:00 98.0 F 59 L 18 150/83 Pulse Ox 06/12/19 10:57 94 06/12/19 10:15 06/12/19 09:03 06/12/19 09:00 06/12/19 08:58 06/12/19 08:57 06/12/19 08:25 06/12/19 07:25 97 06/12/19 04:55 89 06/12/19 04:00 06/12/19 00:06 06/12/19 00:03 91 06/11/19 20:56 93 06/11/19 20:06 94 06/11/19 12:00 93 - Physical Examination General: No Apparent Distress HEENT: Positive: PERRL Neck: Positive: neck supple, trachea midline Cardiac: Positive: Reg Rate and Rhythm Lungs: Positive: Normal Exam Neuro: Positive: Grossly Intact Abdomen: Positive: Soft, Distended Skin: Positive: Clear Gait: Normal Gait Extremities: Present: edema (trace) - Labs and Meds CBC 06/12/19 Range/Units 04:59 WBC 4.7 (4.5-11.0) K/mm3 RBC 3.51 L (3.65-5.03) M/mm3 Hgb 9.9 L (11.8-15.2) gm/dl Hct 29.7 L (35.5-45.6) % Plt Count 122 L (140-440) K/mm3 Lymph # 0.7 L (1.2-5.4) K/mm3 [place] # 0.6 (0.0-0.8) K/mm3 Eos # 0.3 (0.0-0.4) K/mm3 Baso # 0.1 (0.0-0.1) K/mm3 Comprehensive Metabolic Panel 06/12/19 Range/Units 04:59 Sodium 142 (137-145) mmol/L Potassium 5.2 H (3.6-5.0) mmol/L Chloride 109.5 H (98-107) mmol/L Carbon Dioxide 19 L (22-30) mmol/L BUN 55 H (9-20) mg/dL Creatinine 3.7 H (0.8-1.5) mg/dL Glucose 145 H (75-100) mg/dL Calcium 7.7 L (8.4-10.2) mg/dL - Imaging and Cardiology EKG: image reviewed
--- NOTE | 2019-06-12 14:14 | Progress Note ---
Assessment and Plan Assessment and plan: --Chest pain /NSTEMI Monitor cardiac enzymes, stress test negative for ischemia --Acute on chronic systolic congestive heart failure EF 15 - 20%, cardiology following, diuretics Beta-blockers no CHRISTINA inhibitors in view of renal failure Input output monitoring, low-sodium diet, fluid restriction --Acute on chronic renal failure; worsening renal function Nephrology following, check ultrasound of the kidneys Avoid nephrotoxins. Monitor renal function --Hyperkalemia; corrected Monitor electrolytes --Thrombocytopenia Continue to monitor, hematology consult if needed --Hypertensive Moderate control, continue current antihypertensives PRN medications --Diabetes mellitus type 2. Accu-Chek sliding scale coverage ADA diet Insulin as needed --Hyperlipidemia ; On statin. --History of hepatitis C; Stable --DVT prophylaxis; heparin renal dose Monitor closely and adjust management as needed Plan of care reviewed with the patient and his nurse Eligibility Manager recommendations noted and appreciated History Interval history: Patient seen and examined medical records reviewed Patient underwent a stress test today which was negative for ischemia However echocardiogram EF 15 to 29% Hospitalist Physical - Constitutional Vitals: Temp Pulse Resp BP Pulse Ox 98.7 F 62 18 141/83 91 06/12/19 11:25 06/12/19 11:25 06/12/19 11:25 06/12/19 11:25 06/12/19 11:25 General appearance: Present: mild distress, well-nourished - EENT Eyes: Present: PERRL, EOM intact - Neck Neck: Present: supple, normal ROM - Respiratory Respiratory effort: normal Respiratory: bilateral: diminished, rales, negative: rhonchi, wheezing - Extremities Extremities: no ischemia, No edema - Abdominal General gastrointestinal: soft, non-tender, non-distended, normal bowel sounds - Integumentary Integumentary: Present: clear, warm - Psychiatric Psychiatric: appropriate mood/affect, cooperative - Neurologic Neurologic: moves all extremities Results - Labs CBC & Chem 7: 06/12/19 04:59 06/12/19 04:59 Labs: Laboratory Last Values WBC 4.7 K/mm3 (4.5-11.0) 06/12/19 04:59 RBC 3.51 M/mm3 (3.65-5.03) L 06/12/19 04:59 Hgb 9.9 gm/dl (11.8-15.2) L 06/12/19 04:59 Hct 29.7 % (35.5-45.6) L 06/12/19 04:59 MCV 85 fl (84-94) 06/12/19 04:59 MCH 28 pg (28-32) 06/12/19 04:59 MCHC 33 % (32-34) 06/12/19 04:59 RDW 15.5 % (13.2-15.2) H 06/12/19 04:59 Plt Count 122 K/mm3 (140-440) L 06/12/19 04:59 Lymph % (Auto) 14.3 % (13.4-35.0) 06/12/19 04:59 [place] % (Auto) 11.8 % (0.0-7.3) H 06/12/19 04:59 Eos % (Auto) 5.4 % (0.0-4.3) H 06/12/19 04:59 Baso % (Auto) 1.2 % (0.0-1.8) 06/12/19 04:59 Lymph # 0.7 K/mm3 (1.2-5.4) L 06/12/19 04:59 [place] # 0.6 K/mm3 (0.0-0.8) 06/12/19 04:59 Eos # 0.3 K/mm3 (0.0-0.4) 06/12/19 04:59 Baso # 0.1 K/mm3 (0.0-0.1) 06/12/19 04:59 Seg Neutrophils % 67.3 % (40.0-70.0) 06/12/19 04:59 Seg Neutrophils # 3.2 K/mm3 (1.8-7.7) 06/12/19 04:59 Sodium 142 mmol/L (137-145) 06/12/19 04:59 Potassium 5.2 mmol/L (3.6-5.0) H 06/12/19 04:59 Chloride 109.5 mmol/L (98-107) H 06/12/19 04:59 Carbon Dioxide 19 mmol/L (22-30) L 06/12/19 04:59 Anion Gap 19 mmol/L 06/12/19 04:59 BUN 55 mg/dL (9-20) H 06/12/19 04:59 Creatinine 3.7 mg/dL (0.8-1.5) H 06/12/19 04:59 Estimated GFR 17 ml/min 06/12/19 04:59 BUN/Creatinine Ratio 15 % 06/12/19 04:59 Glucose 145 mg/dL (75-100) H 06/12/19 04:59 POC Glucose 140 (70-105) H 06/12/19 11:21 Calcium 7.7 mg/dL (8.4-10.2) L 06/12/19 04:59 Iron 37 ug/dL (49-181) L 06/10/19 05:41 TIBC 235 mcg/dL (250-450) L 06/10/19 05:41 % Saturation 15.74 % 06/10/19 05:41 Transferrin 215 mg/dl (180-329) 06/10/19 05:41 Ferritin 61.4 ng/mL (13.0-400.0) 06/10/19 05:41 Total Bilirubin 0.20 mg/dL (0.1-1.2) 06/08/19 22:19 AST 18 units/L (5-40) 06/08/19 22:19 ALT 7 units/L (7-56) 06/08/19 22:19 Alkaline Phosphatase 85 units/L (35-129) 06/08/19 22:19 Total Creatine Kinase 246 units/L (55-170) H 06/11/19 05:33 CK-MB (CK-2) 5.5 ng/mL (0.0-4.0) H 06/11/19 05:33 CK-MB (CK-2) Rel Index 2.2 (0-4) 06/11/19 05:33 Troponin T 0.091 ng/mL (0.00-0.029) H 06/11/19 05:33 NT-Pro-B Natriuret Pep 17407 pg/mL (0-900) H 06/08/19 22:19 Total Protein 6.9 g/dL (6.3-8.2) 06/08/19 22:19 Albumin 3.4 g/dL (3.9-5) L 06/08/19 22:19 Albumin/Globulin Ratio 1.0 % 06/08/19 22:19 Triglycerides 78 mg/dL (2-149) 06/08/19 22:19 Cholesterol 145 mg/dL (50-199) 06/08/19 22: LDL Cholesterol Direct 88 mg/dL (50-130) 06/08/19 22: HDL Cholesterol 43 mg/dL (40-59) 06/08/19 22: Cholesterol/HDL Ratio 3.37 % 06/08/19 22: Urine Color Yellow (Yellow) 06/08/19 Unknown Urine Turbidity Clear (Clear) 06/08/19 Unknown Urine pH 5.0 (5.0-7.0) 06/08/19 Unknown Ur Specific [place] 1.009 (1.003-1.030) 06/08/19 Unknown Urine Protein 100 mg/dl mg/dL (Negative) 06/08/19 Unknown Urine Glucose (UA) Neg mg/dL (Negative) 06/08/19 Unknown Urine Ketones Neg mg/dL (Negative) 06/08/19 Unknown Urine Blood Neg (Negative) 06/08/19 Unknown Urine Nitrite Neg (Negative) 06/08/19 Unknown Urine Bilirubin Neg (Negative) 06/08/19 Unknown Urine Urobilinogen < 2.0 mg/dL (<2.0) 06/08/19 Unknown Ur Leukocyte Esterase Neg (Negative) 06/08/19 Unknown Urine WBC (Auto) 1.0 /HPF (0.0-6.0) 06/08/19 Unknown Urine RBC (Auto) 2.0 /HPF (0.0-6.0) 06/08/19 Unknown Urine Bacteria (Auto) 1+ /HPF (Negative) 06/08/19 Unknown Hyaline Casts 10 /LPF 06/08/19 Unknown Urine Mucus Few /HPF 06/08/19 Unknown Active Medications - Current Medications Current Medications: Generic Name Dose Route Start Last Admin Trade Name Freq PRN Reason Stop Dose Admin Acetaminophen 650 mg 06/09/19 04:25 Tylenol PO Q4H PRN Pain MILD(1-3)/Fever >100.5/GALVEZ Amoxicillin/Clavulanate Potassium 1 each 06/11/19 22:00 06/12/19 10:15 Augmentin 875 Mg PO 1 each Q12HR BHARGAVI Administration Carvedilol 6.25 mg 06/09/19 10:00 06/12/19 10:15 Coreg PO 6.25 mg BID BHARGAVI Administration Citalopram Hydrobromide 20 mg 06/09/19 10:00 06/12/19 10:15 Celexa PO 20 mg QDAY BHARGAVI Administration Diphenhydramine HCl 50 mg 06/09/19 04:23 Benadryl PO QHS PRN Insomnia Furosemide 40 mg 06/12/19 06:00 06/12/19 05:43 Lasix PO 40 mg DAILY@0600 BHARGAVI Administration Loperamide HCl 2 mg 06/09/19 04:23 Imodium PO Q3H PRN Loose Stool Loratadine/Pseudoephedrine Sulfate 1 each 06/12/19 10:00 Claritin-D 24hr PO Q24HR BHARGAVI Nifedipine 90 mg 06/09/19 08:00 06/12/19 10:15 Procardia Xl PO 90 mg QDAY@0800 BHARGAVI Administration Ondansetron HCl 4 mg 06/09/19 04:25 Zofran IV Q8H PRN Nausea And Vomiting Pregabalin 75 mg 06/09/19 10:00 06/12/19 10:15 Pregabalin PO 75 mg BID BHARGAVI Administration Sodium Bicarbonate 650 mg 06/09/19 20:00 06/12/19 10:00 Sodium Bicarbonate PO 650 mg TID BHARGAVI Administration Sodium Chloride 10 ml 06/09/19 10:00 06/12/19 10:16 Sodium Chloride Flush Syringe 10 Ml IV 10 ml BID BHARGAVI Administration Sodium Chloride 10 ml 06/09/19 04:25 Sodium Chloride Flush Syringe 10 Ml IV PRN PRN LINE FLUSH
--- NOTE | 2019-06-12 17:30 | Progress Note ---
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 No acute need for renal replacement therapy at this time * Continue Lasix 40mg po daily * Strict I/O * Cardiology following - work up noted * Medical management of electrolytes * Restrict K intake - renal diet/fluid restriction ordered * Continue NaBicarb TID * Dose medications for renal function * Avoid nephrotoxins * AM labs * Advised need for compliance with sodium restricted diet (has [employer] bag at bedside) and medications. He was informed of risk of progression to ESRD if compliance fails to improve Subjective Date of service: 06/12/19 Principal diagnosis: CHF Interval history: Patient has no complaints. Denies SOB. Objective - Vital Signs Vital signs: Vital Signs - 12hr 06/12/19 06/12/19 06/12/19 07:25 08:25 08:57 Temperature Pulse Rate Pulse Rate [ 79 From Monitor] Pulse Rate [ 79 Left Radial] Pulse Rate [ 79 Right Radial] Respiratory 16 Rate Blood Pressure 168/91 171/95 O2 Sat by Pulse 97 Oximetry 06/12/19 06/12/19 06/12/19 08:58 09:00 09:03 Temperature Pulse Rate Pulse Rate [ From Monitor] Pulse Rate [ Left Radial] Pulse Rate [ Right Radial] Respiratory Rate Blood Pressure 171/82 162/86 173/85 O2 Sat by Pulse Oximetry 06/12/19 06/12/19 06/12/19 10:15 10:57 11:25 Temperature 98.7 F Pulse Rate 71 75 62 Pulse Rate [ From Monitor] Pulse Rate [ Left Radial] Pulse Rate [ Right Radial] Respiratory 18 Rate Blood Pressure 159/83 159/83 141/83 O2 Sat by Pulse 94 91 Oximetry 06/12/19 06/12/19 15:36 16:30 Temperature 97.8 F Pulse Rate 64 Pulse Rate [ From Monitor] Pulse Rate [ Left Radial] Pulse Rate [ Right Radial] Respiratory 18 Rate Blood Pressure 142/78 O2 Sat by Pulse 94 90 Oximetry - General Appearance General appearance: well-developed, well-nourished EENT: ATNC Neck: no JVD Respiratory: Present: Clear to Ascultation Cardiology: regular, S1S2 Gastrointestinal: no tenderness, distended Integumentary: no rash, warm and dry Neurologic: alert and oriented x3 Psychiatric: cooperative - Lab 06/12/19 04:59 06/12/19 04:59 Most recent lab results Calcium 7.7 mg/dL (8.4-10.2) L 06/12/19 04:59 Medications & Allergies - Medications Allergies/Adverse Reactions: Allergies No Known Allergies Allergy (Unverified 01/04/17 08:05) Home Medications: Home Medications Medication Instructions Recorded Confirmed Last Taken Type Pregabalin 75 mg PO BID #60 capsule 06/03/17 06/09/19 Unknown Rx carvediloL [Coreg] 6.25 mg PO BID #60 tablet 06/03/17 06/09/19 Unknown Rx Bumetanide 2 mg PO QDAY 06/09/19 06/09/19 Unknown History Citalopram [celeXA] 20 mg PO QDAY 06/09/19 06/09/19 Unknown History Loperamide [Imodium] 2 mg PO PRN PRN 06/09/19 06/09/19 Unknown History NIFEdipine [Nifedipine ER] 90 mg PO QDAY 06/09/19 06/09/19 Unknown History diphenhydrAMINE [Benadryl CAP] 50 mg PO QHS PRN 06/09/19 06/09/19 Unknown History hydrALAZINE [Apresoline TAB] 100 mg PO Q8HR 06/09/19 06/09/19 Unknown History Active Medications: Generic Name Dose Route Start Last Admin Trade Name Freq PRN Reason Stop Dose Admin Acetaminophen 650 mg 06/09/19 04:25 Tylenol PO Q4H PRN Pain MILD(1-3)/Fever >100.5/GALVEZ Amoxicillin/Clavulanate Potassium 1 each 06/12/19 22:00 Augmentin 500 Mg PO Q12HR BHARGAVI Carvedilol 6.25 mg 06/09/19 10:00 06/12/19 10:15 Coreg PO 6.25 mg BID BHARGAVI Administration Citalopram Hydrobromide 20 mg 06/09/19 10:00 06/12/19 10:15 Celexa PO 20 mg QDAY BHARGAVI Administration Diphenhydramine HCl 50 mg 06/09/19 04:23 Benadryl PO QHS PRN Insomnia Furosemide 40 mg 06/12/19 06:00 06/12/19 05:43 Lasix PO 40 mg DAILY@0600 BHARGAVI Administration Loperamide HCl 2 mg 06/09/19 04:23 Imodium PO Q3H PRN Loose Stool Loratadine/Pseudoephedrine Sulfate 1 each 06/12/19 10:00 06/12/19 12:55 Claritin-D 24hr PO 1 each Q24HR BHARGAVI Administration Nifedipine 90 mg 06/09/19 08:00 06/12/19 10:15 Procardia Xl PO 90 mg QDAY@0800 BHARGAVI Administration Ondansetron HCl 4 mg 06/09/19 04:25 Zofran IV Q8H PRN Nausea And Vomiting Pregabalin 75 mg 06/09/19 10:00 06/12/19 10:15 Pregabalin PO 75 mg BID BHARGAVI Administration Sodium Bicarbonate 650 mg 06/09/19 20:00 06/12/19 14:35 Sodium Bicarbonate PO 650 mg TID BHARGAVI Administration Sodium Chloride 10 ml 06/09/19 10:00 06/12/19 10:16 Sodium Chloride Flush Syringe 10 Ml IV 10 ml BID BHARGAVI Administration Sodium Chloride 10 ml 06/09/19 04:25 Sodium Chloride Flush Syringe 10 Ml IV PRN PRN LINE FLUSH
[2019-06-12] MEDS: AMOXICILLIN/K CLAV 500/125MG TAB PO SCH (21:23)
[2019-06-13] MEDS: FUROSEMIDE 40 MG TAB PO SCH (05:17)
[2019-06-13 06:49] LABS: Basophils # (Auto) 0.1 K/mm3 (0.0-0.1); Basophils % (Auto) 1.8 % (0.0-1.8); Eosinophils # (Auto) 0.2 K/mm3 (0.0-0.4); Eosinophils % (Auto) 4.6 % (0.0-4.3); Hematocrit 29.4 % (35.5-45.6); Hemoglobin 9.7 gm/dl (11.8-15.2); Lymphocytes # (Auto) 0.8 K/mm3 (1.2-5.4); Mean Corpuscular HGB Conc 33 % (32-34); Mean Corpuscular Volume 85 fl (84-94); Monocytes # (Auto) 0.5 K/mm3 (0.0-0.8); Monocytes % (Auto) 11.8 % (0.0-7.3); Platelet Count 132 K/mm3 (140-440); Red Blood Count 3.48 M/mm3 (3.65-5.03); Red Cell Distribution Width 15.2 % (13.2-15.2)
[2019-06-13 07:08] LABS: Calcium 7.9 mg/dL (8.4-10.2)
[2019-06-13 08:00] VITALS: BP 142/78
--- NOTE | 2019-06-13 09:25 | Progress Note ---
Assessment and Plan Volume overload Secondary to noncompliance with outpatient medical therapy Acute systolic heart failure resolved Cardiomyopathy, mild dilated Chronic renal failure Requiring transient HD in the past Hypertension Diabetes No ischemia by MPI 12/2016. MPT 06/12/19 no ischemia EF 44% LVEF 45-50% by echo 05/2017. Echo this admission showing LVEF 15-20% with moderate to severe TR Plan: Diuretics changed to p.o. by renal Cleared by nephrology Patient appears euvolemic Abdomen distended tympanic doubt ascites Can DC home with outpatient follow-up Stressed compliance with meds and follow-up Subjective Date of service: 06/13/19 Principal diagnosis: CHF Interval history: Complaining of abdominal distention. No significant shortness of breath Objective Vital Signs Temp Pulse Resp BP Pulse Ox 06/13/19 07:16 98.4 F 68 18 142/78 90 06/13/19 05:21 98.0 F 68 18 151/77 92 06/12/19 23:48 98.4 F 70 18 146/80 94 06/12/19 22:00 71 06/12/19 19:32 97.9 F 66 20 154/85 90 06/12/19 16:30 97.8 F 64 18 142/78 90 06/12/19 15:36 94 06/12/19 11:25 98.7 F 62 18 141/83 91 06/12/19 10:57 75 159/83 94 06/12/19 10:15 71 159/83 06/12/19 10:00 73 - Physical Examination General: No Apparent Distress HEENT: Positive: PERRL, Normocephaly Neck: Positive: neck supple, trachea midline Cardiac: Positive: Reg Rate and Rhythm Lungs: Positive: clear to auscultation Neuro: Positive: Grossly Intact Abdomen: Positive: Soft, Distended (Mildly) Skin: Positive: Clear Gait: Normal Gait Extremities: Present: edema (trace) - Labs and Meds CBC 06/13/19 Range/Units 05:36 WBC 4.3 L (4.5-11.0) K/mm3 RBC 3.48 L (3.65-5.03) M/mm3 Hgb 9.7 L (11.8-15.2) gm/dl Hct 29.4 L (35.5-45.6) % Plt Count 132 L (140-440) K/mm3 Lymph # 0.8 L (1.2-5.4) K/mm3 Moore # 0.5 (0.0-0.8) K/mm3 Eos # 0.2 (0.0-0.4) K/mm3 Baso # 0.1 (0.0-0.1) K/mm3 Comprehensive Metabolic Panel 06/13/19 Range/Units 05:36 Sodium 139 (137-145) mmol/L Potassium 5.4 H (3.6-5.0) mmol/L Chloride 107.5 H (98-107) mmol/L Carbon Dioxide 19 L (22-30) mmol/L BUN 57 H (9-20) mg/dL Creatinine 3.4 H (0.8-1.5) mg/dL Glucose 173 H (75-100) mg/dL Calcium 7.9 L (8.4-10.2) mg/dL - Imaging and Cardiology EKG: image reviewed
[2019-06-13] MEDS: SODIUM BICARBONATE 650 MG TAB PO SCH ×2 (09:35→13:17)
[2019-06-13] MEDS: AMOXICILLIN/K CLAV 500/125MG TAB PO SCH (09:35)
[2019-06-13] MEDS: NIFEdipine XL 90 MG TAB PO SCH (09:35)
[2019-06-13] MEDS: PREGABALIN 75 MG CAP PO SCH (09:35)
[2019-06-13] MEDS: CITALOPRAM 20 MG TAB PO SCH (09:35)
[2019-06-13] MEDS: carvediloL 6.25 MG TAB PO SCH (09:35)
[2019-06-13] MEDS ORDERED: MAGNESIUM HYDROXIDE (MOM) ORAL LIQD UDC PO PRN (09:39)
--- NOTE | 2019-06-13 11:57 | Discharge Summary ---
Providers - Providers Date of Admission: 06/09/19 02:08 Date of discharge: 06/13/19 Attending physician: NEAL LAN 06/09/19 04:25 Consult to Physician [CONS] Routine Comment: Consulting Provider: ASAD LEAL Physician Instructions: Reason For Exam: cp/chf 06/09/19 04:27 Consult to Physician [CONS] Routine Comment: Consulting Provider: IRINA HINTON Physician Instructions: Reason For Exam: arf on chronic Primary care physician: CROP FARMERS Hospitalization Condition: Stable Hospital course: --Chest pain /NSTEMI Monitor cardiac enzymes, stress test negative for ischemia --Acute on chronic systolic congestive heart failure EF 15 - 20%, cardiology following, diuretics Beta-blockers no CHRISTINA inhibitors in view of renal failure Input output monitoring, low-sodium diet, fluid restriction --Acute on CKD stage III; worsening renal function Nephrology following, check ultrasound of the kidneys Avoid nephrotoxins. Monitor renal function --Hyperkalemia; corrected Monitor electrolytes --Thrombocytopenia Continue to monitor, hematology consult if needed --Hypertensive Moderate control, continue current antihypertensives PRN medications --Diabetes mellitus type 2. Accu-Chek sliding scale coverage ADA diet Insulin as needed --Hyperlipidemia ; On statin. --History of hepatitis C; Stable --DVT prophylaxis; heparin renal dose Disposition: TO HOME OR SELFCARE Time spent for discharge: 32 min Core Measure Documentation - Palliative Care Palliative Care/ Comfort Measures: Not Applicable - Core Measures Any of the following diagnoses?: heart failure - Heart Failure Discharge Requirements CHRISTINA/ARB for LVSD if EF <40%: No Reason for no CHRISTINA/ARB: Renal impairment Beta juaquin at discharge: Yes Exam - Constitutional Vitals: Temp Pulse Resp BP Pulse Ox 98.4 F 68 18 142/78 90 06/13/19 07:16 06/13/19 07:16 06/13/19 07:16 06/13/19 07:16 06/13/19 07:16 General appearance: Present: no acute distress, well-nourished - EENT Eyes: Present: PERRL, EOM intact - Neck Neck: Present: supple, normal ROM - Respiratory Respiratory effort: normal Respiratory: bilateral: diminished, negative: rales, rhonchi, wheezing - Cardiovascular Rhythm: regular Heart Sounds: Present: S1 & S2 - Extremities Extremities: no ischemia, No edema - Abdominal General gastrointestinal: Present: soft, non-tender, non-distended, normal bowel sounds - Integumentary Integumentary: Present: clear, warm - Musculoskeletal Musculoskeletal: strength equal bilaterally - Psychiatric Psychiatric: appropriate mood/affect, agitated - Neurologic Neurologic: CNII-XII intact, moves all extremities Plan Activity: advance as tolerated, fall precautions Diet: low salt, other (cardiac diet) Additional Instructions: Advised to follow cardiology, nephrology per schedule. If you have severe shortness of breath or chest pain contact MD or go to emergency room Follow up with: PRIMARY CARE, [Primary Care Provider] - 7 Days JERMAINE TORRES MD [Staff Physician] - 7 Days TSERING MCGEE MD [Staff Physician] - 7 Days Prescriptions: Amoxicillin/K Clav Tab [Augmentin 500 MG TAB] 1 each PO Q12HR #14 tablet Loratadine/Pseudoephedrine [Claritin-D 24HR] 1 each PO Q24HR #10 tablet Furosemide [Lasix TAB] 40 mg PO DAILY@0600 #30 tablet Sodium Bicarbonate 650 mg PO TID #30 tablet
[2019-06-13] MEDS ORDERED: SODIUM POLYSTYRENE 15 GM/60 ML ORAL LIQD PO ONE (11:58)
--- NOTE | 2019-06-13 14:39 | Progress Note ---
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 No acute need for renal replacement therapy at this time * Continue Lasix 40mg po daily * Continue NaBicarb TID * Cardiology following - work up noted * Avoid nephrotoxins * at bedside. Again advised need for compliance with sodium restricted diet and medications. Both were informed of risk of progression to ESRD if compliance fails to improve * Will arrange outpatient nephrology follow up Subjective Date of service: 06/13/19 Principal diagnosis: CHF Interval history: Patient has no complaints. Denies SOB. Objective - Vital Signs Vital signs: Vital Signs - 12hr 06/13/19 06/13/19 06/13/19 05:21 07:16 10:00 Temperature 98.0 F 98.4 F Pulse Rate 68 68 66 Respiratory 18 18 Rate Blood Pressure 151/77 142/78 O2 Sat by Pulse 92 90 Oximetry - General Appearance General appearance: well-developed, well-nourished EENT: ATNC Respiratory: Present: Clear to Ascultation Cardiology: regular, S1S2 Gastrointestinal: normal, no tenderness, no distended Integumentary: no rash, warm and dry Neurologic: no focal deficit, alert and oriented x3 Musculoskeletal: other Psychiatric: cooperative - Lab 06/13/19 05:36 06/13/19 05:36 Most recent lab results Calcium 7.9 mg/dL (8.4-10.2) L 06/13/19 05:36 Medications & Allergies - Medications Allergies/Adverse Reactions: Allergies No Known Allergies Allergy (Unverified 01/04/17 08:05) Home Medications: Home Medications Medication Instructions Recorded Confirmed Last Taken Type Pregabalin 75 mg PO BID #60 capsule 06/03/17 06/09/19 Unknown Rx carvediloL [Coreg] 6.25 mg PO BID #60 tablet 06/03/17 06/09/19 Unknown Rx Citalopram [Celexa] 20 mg PO QDAY 06/09/19 06/09/19 Unknown History Loperamide [Imodium] 2 mg PO PRN PRN 06/09/19 06/09/19 Unknown History NIFEdipine [Nifedipine ER] 90 mg PO QDAY 06/09/19 06/09/19 Unknown History diphenhydrAMINE [Benadryl CAP] 50 mg PO QHS PRN 06/09/19 06/09/19 Unknown History Amoxicillin/K Clav Tab [Augmentin 1 each PO Q12HR #14 tablet 06/13/19 Unknown Rx 500 MG TAB] Furosemide [Lasix TAB] 40 mg PO DAILY@0600 #30 tablet 06/13/19 Unknown Rx Loratadine/Pseudoephedrine 1 each PO Q24HR #10 tablet 06/13/19 Unknown Rx [Claritin-D 24HR] Sodium Bicarbonate 650 mg PO TID #30 tablet 06/13/19 Unknown Rx Active Medications: Generic Name Dose Route Start Last Admin Trade Name Freq PRN Reason Stop Dose Admin Acetaminophen 650 mg 06/09/19 04:25 Tylenol PO Q4H PRN Pain MILD(1-3)/Fever >100.5/GALVEZ Amoxicillin/Clavulanate Potassium 1 each 06/12/19 22:00 06/13/19 09:35 Augmentin 500 Mg PO 1 each Q12HR BHARGAVI Administration Carvedilol 6.25 mg 06/09/19 10:00 06/13/19 09:35 Coreg PO 6.25 mg BID BHARGAVI Administration Citalopram Hydrobromide 20 mg 06/09/19 10:00 06/13/19 09:35 Celexa PO 20 mg QDAY BHARGAVI Administration Diphenhydramine HCl 50 mg 06/09/19 04:23 Benadryl PO QHS PRN Insomnia Furosemide 40 mg 06/12/19 06:00 06/13/19 05:17 Lasix PO 40 mg DAILY@0600 BHARGAVI Administration Loperamide HCl 2 mg 06/09/19 04:23 Imodium PO Q3H PRN Loose Stool Loratadine/Pseudoephedrine Sulfate 1 each 06/12/19 10:00 06/12/19 12:55 Claritin-D 24hr PO 1 each Q24HR BHARGAVI Administration Magnesium Hydroxide 30 ml 06/13/19 09:39 Milk Of Magnesia PO Q4H PRN Constipation Nifedipine 90 mg 06/09/19 08:00 06/13/19 09:35 Procardia Xl PO 90 mg QDAY@0800 BHARGAVI Administration Ondansetron HCl 4 mg 06/09/19 04:25 Zofran IV Q8H PRN Nausea And Vomiting Pregabalin 75 mg 06/09/19 10:00 06/13/19 09:35 Pregabalin PO 75 mg BID BHARGAVI Administration Sodium Bicarbonate 650 mg 06/09/19 20:00 06/13/19 13:17 Sodium Bicarbonate PO 650 mg TID BHARGAVI Administration Sodium Chloride 10 ml 06/09/19 10:00 06/12/19 21:24 Sodium Chloride Flush Syringe 10 Ml IV 10 ml BID BHARGAVI Administration Sodium Chloride 10 ml 06/09/19 04:25 Sodium Chloride Flush Syringe 10 Ml IV PRN PRN LINE FLUSH
== END 2019-06-13 15:45 | disposition home or self-care (01) | DRG 280 ==
LOC: ED 18:33 → 4A 06-09 02:08
PROVIDERS: ADMIT Internal Medicine; ATTEND Internal Medicine
DX: I13.0 Hypertensive heart and chronic kidney disease with heart failure and stage 1 through stage 4 chronic kidney disease, or unspecified chronic kidney disease (principal); I21.4 Non-ST elevation (NSTEMI) myocardial infarction; I50.23 Acute on chronic systolic (congestive) heart failure; N17.9 Acute kidney failure, unspecified; E87.5 Hyperkalemia; E11.22 Type 2 diabetes mellitus with diabetic chronic kidney disease; R60.0 Localized edema; R79.89 Other specified abnormal findings of blood chemistry; E78.5 Hyperlipidemia, unspecified; D69.6 Thrombocytopenia, unspecified; B19.20 Unspecified viral hepatitis C without hepatic coma; E87.70 Fluid overload, unspecified; I42.9 Cardiomyopathy, unspecified; D63.8 Anemia in other chronic diseases classified elsewhere; E87.2 Acidosis; N18.3 Chronic kidney disease, stage 3 (moderate); I42.8 Other cardiomyopathies; J32.9 Chronic sinusitis, unspecified; Z82.49 Family history of ischemic heart disease and other diseases of the circulatory system; Z91.14 Patient's other noncompliance with medication regimen
CPT/HCPCS: 36415; 71046; 76770; 78452; 80048; 80053; 80061; 81001; 82550; 82553; 82728; 82962; 83550; 83880; 84484; 85025; 93005; 93010; 93017; 93306; 94760; 96374; 96375; G0378; A9502; J1815; J1940; J2785

== ENCOUNTER 2019-07-26 08:39 | Emergency (ER) | payer MEDICAID ==
[2019-07-26 08:47] VITALS: BP 184/94
--- NOTE | 2019-07-26 09:46 | XRay Report ---
LEFT TIBIA AND FIBULA, AP AND LATERAL VIEWS INDICATION: trauma, pain. COMPARISON: No relevant prior imaging study available. FINDINGS: No acute, displaced fracture or dislocation is seen in the left tibia/fibula. Is a small osseous excr escence along the lateral cortex of the distal fibula just above the lateral malleolus, this may be r elated to remote trauma. Mild degenerative changes are noted at the left knee and left ankle. No fore ign bodies are seen. IMPRESSION: 1. No acute findings. Signer Name: Hardeep Connor MD Signed: 07/26/2019 9:42 AM Workstation Name: [id number]
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
== END 2019-07-26 11:46 | disposition home or self-care (01) ==
LOC: ED 08:39
DX: S89.82XA Other specified injuries of left lower leg, initial encounter (principal); M79.662 Pain in left lower leg; I13.0 Hypertensive heart and chronic kidney disease with heart failure and stage 1 through stage 4 chronic kidney disease, or unspecified chronic kidney disease; N18.9 Chronic kidney disease, unspecified; I50.9 Heart failure, unspecified; E11.22 Type 2 diabetes mellitus with diabetic chronic kidney disease; E78.5 Hyperlipidemia, unspecified; M19.90 Unspecified osteoarthritis, unspecified site; Z79.899 Other long term (current) drug therapy; X58.XXXA Exposure to other specified factors, initial encounter; Y93.89 Activity, other specified; Y92.89 Other specified places as the place of occurrence of the external cause; Y99.0 Civilian activity done for income or pay
CPT/HCPCS: 99283